=== PATIENT | male | born 1935 | race Caucasian/White ===

== ENCOUNTER 2016-07-19 20:07 | Observation (INO) | payer MEDICARE ==
[~2016-07-19] VITALS: Ht 172.7 cm; Wt 56.3 kg
[2016-07-19 20:14] VITALS: BP 118/60
[2016-07-19] MEDS ORDERED: LEVOTHYROXINE0.05 MG NG (20:24)
[2016-07-19] MEDS ORDERED: METOPROLOL25 MG PO (20:25)
[2016-07-19] MEDS ORDERED: OMEPRAZOLE20 MG PO (20:25)
[2016-07-19] MEDS ORDERED: DAPSONE100 M1 PO (20:25)
[2016-07-19 20:34] LABS: LYMPH # 1.4 K/mm3 (0.7-4.5); LYMPH % 21.7 % (10-50)
[2016-07-19 20:37] LABS: HEMOGLOBIN 8.1 g/dL (14.1-18.0)
[2016-07-19 21:01] LABS: BUN 11 mg/dL (7-18)
[2016-07-19 21:03] LABS: GFR (ESTIMATED) 65 ML/MIN (>60)
--- OUTSIDE RECORDS SUMMARY | 2016-07-19 21:22 | External Medical Summary Rpt ---
Demographics Home Phone Preferred Language Turkmen Marital Status Unknown Sikh Affiliation Unknown Race Unknown Ethnic Group Unknown Author Author , Organization [employer] Address Unknown Phone Unavailable Care Team Providers Care Outside Salesman Name Role Phone MURALI GRIJALVA, Unavailable Unavailable MURALI GRIJALVA, Unavailable Unavailable MARTHA VERNON, Unavailable Unavailable MARTHA SHOOK JOHN M, Unavailable Unavailable RAHEEM MITCHELL JEFFREY P, Unavailable Unavailable SPENCER MOORE MALLORY DECALVO Unavailable Unavailable MAR, MALLORY DECALVO MAR MALLORY DECALVO, Unavailable Unavailable CELY V, MALLORY DECALVO, CELY V CARMELITA CHAVEZ, CARMELITA CHAVEZ Unavailable Unavailable HAGCHNEIDER, Unavailable Unavailable MIKAYLA Farr, CHARITY, IGLESIA FUENTES, Unavailable Unavailable IGLESIA PRICE SHEYLA ABR, SHEYLA Unavailable Unavailable ABR SHEYLA ABR, SHEYLA Unavailable Unavailable [facility] Unavailable [facility], [facility] & Unavailable Unavailable [facility], [place] [facility] Unavailable Unavailable [facility], [facility], Unavailable Unavailable [facility] & Unavailable [facility] & Unavailable Unavailable [facility]available [facility]available [facility] Unavailable Unavailable [facility] JAYCE RIVERA Unavailable Unavailable [facility], Unavailable Unavailable [facility] EDUARDO, Unavailable Unavailable DANIELLE DÍAZ [facility] Unavailable Unavailable MEDICAL, [facility] Unavailable Unavailable MEDICAL CENTER, [facility], Unavailable Unavailable [facility] PATHOLOGY & CYTOLOGY Unavailable Unavailable LAB, PATHOLOGY & CYTOLOGY LAB [facility], Unavailable Unavailable [facility], Unavailable Unavailable [facility] TARASTYURIY KIM, Unavailable Unavailable TARASTAD, KIM RENEE RAG, Unavailable Unavailable RENEE RAG RENEE, Unavailable Unavailable RENEE MURILLO RAGHURAMAN WEAVER KEN, WEAVER Unavailable Unavailable [facility] Unavailable Unavailable GLORIA Purpose Continuity of Care Document - 02-21-2007 through 2016 Problems Code Diagnosis DOS Provider Status 2449 UNSPECIFIED 04-05-2014 [facility] ISM 4279 UNSPECIFIED 04-05-2014 [facility] CARDIAC [facility] DYSRHYTHMIA [facility] 70340 OTHER 04-05-2014 [facility] [place] MALA[facility] FATIGUE [facility] 3688 OTHER 02-23-2014 [facility]IED [facility] VISUAL DISTURBANCE S 23331 PAIN IN OR 02-23-2014 [facility] 49911 URINARY 02-23-2014 [facility]REQU[facility]Y [facility] 21655 NONSPECIFIC 02-23-2014 [facility]AL [facility] UNSPEC CV FUNCTION STUDY V7791 SCREENING 02-23-2014 [facility] LIPOID [facility] DISORDERS 11140 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 [facility] ENTROPION 23680 JL MUCOUS 02-22-2014 [facility] PEMPHIGOID [place] W/OCULAR INVLV 4149 UNSPECIFIED 10-15-2013 [facility] CHRONIC ISCHEMIC HEART DISEASE 38911 OTHER 10-15-2013 [facility] SPECIFIED CARDIAC DYSRHYTHMIA S 2859 UNSPECIFIED 10-07-2013 [facility] ANEMIA [facility]IONAL MEDICAL 4139 OTHER AND 10-07-2013 [facility] UNSPECIFIED HEART ANGINA PECTORIS 02170 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 [facility] ATHEROSCLER REGIONAL [facility] CORONARY ARTERY 4280 CONGESTIVE 10-07-2013 [facility] HEART HEART FAILURE UNSPECIFIED 72798 CHEST PAIN 10-07-2013 [facility] UNSPECIFIED REGIONAL MEDICAL 82710 OTH 10-07-2013 [facility] NONSPECIFIC HEART ABNORM CV SYSTEM FUNCTION STUDY 37701 SHORTNESS 09-17-2013 [place] [facility] HEART 66534 NONSPECIFIC 09-17-2013 [facility] ABNORMAL HEART ELECTROCARD IOGRAM 37538 ANEMIA OF 09-07-2013 [facility] CHRONIC DISEASE 7804 DIZZINESS 09-07-2013 [facility] [place] [facility]IDDINESS [facility] 7840 HEADACHE 09-07-2013 [facility] V5869 LONG-TERM 09-07-2013 [facility] (CURRENT) [facility] USE OF OTHER MEDICATIONS V431 LENS 04-24-2013 [place] [facility]ED BY E[facility] OTHER INSTITUTE MEANS 2469 UNSPECIFIED 03-05-2013 [facility] DISORDER [facility]AG[facility] OF THYROID 2689 UNSPECIFIED 03-05-2013 [facility] VIT[facility]IN D [facility]AGNO[facility] DEFICIENCY 87857 UNSPECIFIED 03-05-2013 [facility] OF EYE 3804 IMPACTED 03-05-2013 [facility] CERUMEN [facility] 57682 DISORDER OF 03-05-2013 [facility] BONE AND [facility]AGNO[facility]ICS CARTILAGE UNSPECIFIED V851 BODY MASS 03-05-2013 [facility] INDEX [facility] BETWEEN 19-24 ADULT 86904 NUCLEAR 09-18-2012 [facility] 3669 UNSPECIFIED 09-18-2012 [facility] 95065 UNSPECIFIED 09-10-2012 [facility] INTERSTITIA L KERATITIS 16517 SCARRING OF 09-10-2012 [facility] CONJUNCTIVA 02677 UNSPECIFIED 09-10-2012 [facility] ABNORMAL PUPILLARY FUNCTION 2662 OTHER 01-30-2012 [facility] B-COMPLEX PRIMARY DEFICIENCIE CARE CENTER S 2669 UNSPECIFIED 01-30-2012 [facility] B [facility] DEFICIENCY 5225 PERIAPICAL 06-18-2011 [facility] ABSCESS PRIMARY WITHOUT CARE CENTER SINUS 50482 UNSPECIFIED 06-18-2011 [facility] PRIMARY OSTEOPOROSI CARE CENTER S 7945 NONSPECIFIC 06-18-2011 LABORATORY ABNORM & RESULTS BIODIAGNOST THYROID ICS FUNCT STUDY V0382 NEED PROPH 06-18-2011 [facility] VACCINATION PRIMARY AGAINST CARE CENTER STREP PNEUMONE 7099 UNSPECIFIED 01-16-2011 [facility] DISORDER PRIMARY OF CARE CENTER SKIN&SUBCUT ANEOUS TISSUE 7821 RASH AND 12-04-2010 [facility] OTHER PRIMARY NONSPECIFIC CARE CENTER SKIN ERUPTION 6929 CONTACT 09-08-2010 [facility] DERMATITIS& PRIMARY OTHER CARE CENTER ECZEMA DUE UNSPEC CAUSE 2722 MIXED 05-02-2010 LABORATORY HYPERLIPIDE & LENIN BIODIAGNOST ICS V8281 SPECIAL 03-27-2010 [facility] FOR MEDICAL OSTEOPOROSI S 7851 PALPITATION 02-13-2010 [facility] S HEART 72101 BLEPHAROPHI 01-09-2010 [place] [facility] [place] [facility] & SURG P 2800 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 BIODIAGNOST SECONDARY ICS TO BLOOD LOSS 4011 ESSENTIAL 06-13-2009 [facility] HYPERTENSIO REGIONAL N, [facility] 2692 UNSPECIFIED 04-05-2009 [facility] VITAMIN PRIMARY DEFICIENCY CARE CENTERINC 45228 UNSPECIFIED 03-07-2009 [place] [facility] CORNEAL E[facility] & OPACITY SURG PSC V7644 SPECIAL 02-23-2009 [facility] SCREENING PRIMARY MALIGNANT CARE NEOPLASM OF CENTERINC PROSTATE V7651 SPECIAL 02-23-2009 [facility] SCREENING PRIMARY FOR CARE MALIGNANT CENTERINC NEOPLASMS COLON 4940 BRONCHIECTA 09-15-2009 [facility] SIS WITHOUT RADIOLOGY ACUTE ASSOCIATES EXACERBATIO PSC N 7862 COUGH 10-26-2008 [facility] 2324 CARCINOMA 10-01-2008 PATHOLOGY & IN SITU OF CYTOLOGY SCALP AND LAB SKIN OF NECK 1733 OTH MALIG 09-30-2008 SANDY, NEOPLASM KIM SKIN OTH & UNS PARTS FACE V1083 PERSONAL 09-30-2008 [facility], HISTORY KIM OTHER MALIGNANT NEOPLASM SKIN 1734 OTHER 09-02-2008 [facility] MALIGNANT ASSOC NEOPLASM OF DERMATOLOGY SCALP & SKIN OF NECK 6944 PEMPHIGUS 09-02-2008 [facility] 6948 OTHER 09-02-2008 [facility] SPECIFIED ASSOC BULLOUS DERMATOLOGY DERMATOSIS 4928 OTHER 07-09-2008 [facility] EMPHYSEMA RADIOLOGY ASSOCIATES PSC 13621 OTHER 07-09-2008 [facility] DISEASES OF RADIOLOGY LUNG NOT ASSOCIATES ELSEWHERE PSC CLASSIFIED 7856 ENLARGEMENT 07-09-2008 [facility] OF LYMPH RADIOLOGY NODES ASSOCIATES PSC 17716 ING VANITA 06-22-2008 [facility] W/O MENTION H ANESTHESIA OBST/GANGRE PSC N UNILAT/UNSP EC 496 CHRONIC 06-21-2008 [facility] AIRWAY RADIOLOGY OBSTRUCTION ASSOCIATES NEC PSC 84105 ING VANITA 06-21-2008 [facility] W/O REGIONAL OBST/GANGRE MEDICAL N RECUR CENTER UNILAT/UNS V1201 PERSONAL 06-21-2008 [facility] HISTORY OF REGIONAL TUBERCULOSI MEDICAL S CENTER V7284 UNSPECIFIED 06-21-2008 [facility] PRE-OPERATI MEDICAL VE CENTER EXAMINATION 5539 VANITA UNS 06-14-2008 [facility] SITE ABD PRIMARY CAV W/O CARE MENTION CENTERINC OBST/GANGRE N 44385 UNSPECIFIED 06-09-2007 RUDI, PTOSIS OF MURALI EYEL[facility] 34066 DERMATOCHAL 06-09-2007 RUDI, ASIS MURALI 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 Procedures Procedure DOS Code Location Performer Comment BLOOD 16551 [facility] COUNT 5 PRIMARY HEMOGLOBI CARE N CENTER ECG 52457 [facility] ROUTINE 5 PRIMARY ECG CARE W/LEAST CENTER 12 LDS TRCG ONLY W/O I&[place] [address] [facility] PROSTATE 5 DIAGNOSTI DIAGNOSTI [place] [address] [facility] THYROID 5 DIAGNOSTI DIAGNOSTI STIMULATI CS CS NG HORMONE TSH COLLECTIO 46979 [facility] N VENOUS 5 DIAGNOSTI DIAGNOSTI BLOOD CS CS VENIPUNCT URE COMPREHEN 16910 [facility] SIVE 5 DIAGNOSTI DIAGNOSTI METABOLIC CS CS PANEL BLOOD 17960 [facility] COUNT 5 DIAGNOSTI DIAGNOSTI COMPLETE CS CS AUTO&AUTO DIFRNTL WBC OPHTH 24859 [facility] 5 EYE HUONG XM&EVAL INSTITUTE INTERMEDI ATE ESTAB PT CORRECTIO 70291 [facility] 4 EYE HUONG TRICHIASI INSTITUTE S EPILATION FORCEPS ONLY OPHTH 70570 [facility] 4 EYE HUONG XM&EVAL INSTITUTE INTERMEDI ATE ESTAB PT GUIDE C1769 [facility] WIRE 4 W W [facility] MEDICAL MEDICAL CATHETER C1887 [facility] GUIDING 4 W W [facility] MEDICAL ARTERIAL 81120 [facility] PUNCTURE 4 W W [facility] L BLOOD MEDICAL MEDICAL DX INTRDUCR/ C1766 [facility] SHEATH 4 W W GUID [facility] INTRACARD MEDICAL MEDICAL EP NOT PEEL-AWAY R & L HRT 90632 [facility] CATH 4 [place] WINJX HRT HEART ART& [place]G [place] DOP 41072 [facility] PATRICIA&/OR 4 [place] PRESS HEART C/IRWIN RSRV TRANG 1ST VSL MYOCARDIA 21590 [facility] L SPECT 4 [facility] MULTIPLE HEART STUDIES CV STRS 40670 [facility] TST 4 W W XERS&/OR [facility] RX CONT [place]ICAL [place] [address] [facility] MAGNESIUM 4 W W [facility] [place] [address] [facility] THYROID 4 W W STIMULATI [facility] [place] [address] [facility] FREE 4 W W THYROXINE [facility] MEDICAL MEDICAL COMPREHEN 47625 [facility] SIVE 4 W W METABOLIC REGIONAL REGIONAL PANEL MEDICAL MEDICAL COLLECTIO 13101 [facility] N VENOUS 4 W W BLOOD REGIONAL REGIONAL VENIPUNCT MEDICAL MEDICAL URE ECHO 62241 [facility] TTHRC R-T 4 W W 2D REGIONAL REGIONAL W/WOM-MOD MEDICAL MEDICAL E COMPL SPEC&COLR D BLOOD 56691 [facility] COUNT 4 W W COMPLETE REGIONAL REGIONAL AUTO&AUTO MEDICAL MEDICAL DIFRNTL WBC TECHNETIU A9502 [facility] M TC-99M 4 W W TETROFOSM REGIONAL REGIONAL IN DX PER MEDICAL MEDICAL STUDY DOSE CV STRS 96261 [facility] TST 4 [place] XERS&/OR HEART RX CONT ECG I&[place] [address] [facility] PROSTATE 4 DIAGNOSTI DIAGNOSTI SPECIFIC CS CS ANTIGEN TOTAL ECG 63994 [facility] ROUTINE 4 PRIMARY Y BRE ECG CARE W/LEAST CENTER 12 LDS TRCG ONLY W/O I&R COMPREHEN 40497 [facility] SIVE 4 DIAGNOSTI DIAGNOSTI METABOLIC CS CS PANEL COLLECTIO 87106 [facility] N VENOUS 4 DIAGNOSTI DIAGNOSTI [place] [address] [facility] THYROID 4 DIAGNOSTI DIAGNOSTI STIMULATI CS CS NG HORMONE TSH BLOOD 26424 [facility] COUNT 4 DIAGNOSTI DIAGNOSTI COMPLETE CS CS AUTO&AUTO DIFRNTL WBC OPHTH 81694 [facility] 4 EYE HUONG XM&EVAL INSTITUTE INTERMEDI ATE ESTAB PT CORRECTIO 31627 [facility] N 4 EYE HUONG TRICHIASI INSTITUTE S EPILATION FORCEPS ONLY CORRECTIO 61148 [facility] N 4 EYE HUONG TRICHIASI INSTITUTE S EPILATION FORCEPS ONLY OPHTH 67752 [facility] 4 EYE HUONG XM&EVAL INSTITUTE INTERMEDI ATE ESTAB PT REMOVAL 41985 [facility] IMPACTED 4 PRIMARY PRIMARY CERUMEN CARE CARE INSTRUMEN CENTER [place] TATION UNILAT COMPREHEN 61546 [facility] SIVE 4 DIAGNOSTI DIAGNOSTI METABOLIC CS CS PANEL COLLECTIO 55036 [facility] N VENOUS 4 DIAGNOSTI DIAGNOSTI [place] [address] [facility] THYROID 4 DIAGNOSTI DIAGNOSTI ST[place]ULAT[place] [address] [facility] FREE 4 DIAGNOSTI DIAGNOSTI THYROXINE CS CS CORRECTIO 03745 [facility] N 3 EYE HUONG TRICHIASI INSTITUTE S EPILATION FORCEPS ONLY OPHTH 48761 [facility] 3 EYE HUONG &EVAL INSTITUTE INTERMEDI ATE ESTAB PT CORRECTIO 89485 [facility] N 3 EYE HUONG TRICHIASI INSTITUTE S EPILATION FORCEPS ONLY OPHTH 93271 [facility] 3 EYE HUONG &EVAL INSTITUTE INTERMEDI ATE ESTAB PT INJECTION J2001 [facility] 3 W W LIDOCAINE REGIONAL REGIONAL [facility] MEDICAL MEDICAL INTRAVENO US INFUS 10 MG CATARACT 82962 [facility] REMOVAL 3 EYE HUONG INSERTION INSTITUTE OF LENS OPH BMTRY 21479 [facility] US 3 EYE HUONG ECHOGRAPY INSTITUTE A-SCAN IO LENS PWR JEFF OPHTH 89735 [facility] 3 GLORIA GLORIA XM&EVAL INTERMEDI ATE NEW PT CORRECTIO 42614 [facility] N 3 EYE EYE TRICHIASI INSTITUTE INSTITUTE S EPILATION FORCEPS ONLY CORRECTIO 76961 [facility] N 3 EYE HUONG TRICHIASI INSTITUTE S EPILATION FORCEPS ONLY OPHTH 84451 [facility] 3 EYE HUONG &EVAL INSTITUTE INTERMEDI ATE ESTAB PT 25 84734 [facility] HYDROXY 2 DIAGNOSTI DIAGNOSTI INCLUDES CS CS FRACTIONS IF PERFORMED CYANOCOBA 78963 [facility] EDD 2 DIAGNOSTI DIAGNOSTI VITAMIN CS CS B-12 BLOOD 06366 [facility] COUNT 2 DIAGNOSTI DIAGNOSTI [place] [address] [facility] FERRITIN 2 DIAGNOSTI DIAGNOSTI CS CS IRON 31965 [facility] BINDING 2 DIAGNOSTI DIAGNOSTI CAPACITY CS CS BLOOD 24100 [facility] COUNT 2 DIAGNOSTI DIAGNOSTI COMPLETE CS CS AUTO&AUTO DIFRNTL WBC COMPREHEN 87875 [facility] SIVE 2 DIAGNOSTI DIAGNOST[place] [address] [facility] IRON 2 DIAGNOSTI DIAGNOSTI CS CS COLLECTIO 83249 [facility] N VENOUS 2 DIAGNOSTI DIAGNOSTI [place] [address] [facility] FOLIC 2 DIAGNOSTI DIAGNOSTI ACID CS CS SERUM OPHTH 19174 [facility] 2 FOR HUONG XM&EVAL EYEHLTH & INTERMEDI SURG P ATE ESTAB PT CORRECTIO 93426 [place] [facility] N 2 FOR HUONG TRICHIASI EYEHLTH & S SURG P EPILATION FORCEPS ONLY CORRECTIO 59782 [facility] N 2 FOR HUONG TRICHIASI EYEHLTH & S SURG P EPILATION FORCEPS ONLY OPHTH 97472 [facility] 2 FOR HUONG XM&EVAL EYEHLTH & [place] [address] [facility] THYROID 2 [facility] [place] [address] LABORATOR LABORATOR FREE 2 Y & Y & THYROXINE BIODIAGNO BIODIAGNO STICS STICS COMPREHEN 47373 LABORATOR LABORATOR SIVE 2 Y & Y & METABOLIC BIODIAGNO BIODIAGNO PANEL STICS STICS COLLECTIO 62410 LABORATOR LABORATOR N VENOUS 2 Y & Y & BLOOD BIODIAGNO BIODIAGNO [place] [address] LABORATOR LABORATOR THYROID 2 Y & Y & STIMULATI BIODIAGNO BIODIAGNO [place] [address] LABORATOR LABORATOR TRIIODOTH 2 Y & Y & YRONINE BIODIAGNO BIODIAGNO T3 FREE STICS STICS BLOOD 49973 LABORATOR LABORATOR COUNT 2 Y & Y & COMPLETE BIODIAGNO BIODIAGNO AUTO&AUTO STICS STICS DIFRNTL WBC LIPID 19241 LABORATOR LABORATOR PANEL 2 Y & Y & BIODIAGNO BIODIAGNO STICS STICS 25 05-07-201 86219 LABORATOR LABORATOR HYDROXY 2 Y & Y & INCLUDES BIODIAGNO BIODIAGNO FRACTIONS STICS STICS IF PERFORMED CYANOCOBA 18089 LABORATOR LABORATOR EDD 2 Y & Y & VITAMIN BIODIAGNO BIODIAGNO B-12 STICS STICS CORRECTIO [address] [facility] 2 FOR HUONG TRICHIASI EYEHLTH & S SURG P EPILATION FORCEPS ONLY OPHTH 05970 [facility] 2 FOR HUONG XM&EVAL EYEHLTH & INTERMEDI SURG P ATE ESTAB PT OPHTH 27521 [facility] 2 FOR HUONG XM&EVAL EYEHLTH & INTERMEDI SURG P ATE ESTAB PT CORRECTIO [address] [facility] 2 FOR HUONG TRICHIASI EYEHLTH & S SUR[place] [address] LABORATOR LABORATOR SURG 1 Y & Y & PATHOLOGY BIODIAGNO BIODIAGNO STICS STICS GROSS&HERB ROSCOPIC EXAM OPHTH 73106 [facility] 1 FOR HUONG XM&EVAL EYEHLTH & INTERMEDI SURG P ATE ESTAB PT COLLECTIO 06719 [facility] N VENOUS 1 PRIMARY ALVAREZ BLOOD CARE DECAL VENIPUNCT CENTER MAR URE CORRECTIO 44942 [facility] N 1 FOR HUONG TRICHIASI EYEHLTH & S SURG P EPILATION FORCEPS ONLY OPHTH 83994 [facility] 1 FOR HUONG XM&EVAL EYEHLTH & INTERMEDI SURG P ATE ESTAB PT OPHTH 53190 [facility] 1 FOR HUONG XM&EVAL EYEHLTH & INTERMEDI SURG P ATE ESTAB PT CORRECTIO 44285 [facility] N 1 FOR HUONG TRICHIASI EYEHLTH & [place] [address] LABORATOR LABORATOR PROSTATE 1 Y & Y & SPECIFIC BIODIAGNO BIODIAGNO ANTIGEN STICS STICS TOTAL 25 86671 LABORATOR LABORATOR HYDROXY 1 Y & Y & INCLUDES BIODIAGNO BIODIAGNO FRACTIONS STICS STICS IF PERFORMED CYANOCOBA 62587 LABORATOR LABORATOR EDD 1 Y & Y & VITAMIN BIODIAGNO BIODIAGNO B-12 STICS STICS ORGANIC 08701 LABORATOR LABORATOR ACID 1 1 Y & Y & QUANTITAT BIODIAGNO [place]ODI[place] [address] LABORATOR LABORATOR IRON 1 Y & Y & BIODIAG[place] [address] LABORATOR LABORATOR FOLIC 1 Y & Y & ACID BIODIAGNO BIODIAGNO SERUM STICS STICS COMPREHEN 05865 LABORATOR LABORATOR SIVE 1 Y & Y & METABOLIC BIODIAGNO BIODIAGNO PANEL STICS STICS COLLECTIO 42843 [facility] N VENOUS 1 PRIMARY ALVAREZ BLOOD CARE DECALVO VENIPUNCT CENTER MAR URE IRON 64678 LABORATOR LABORATOR BINDING 1 Y & Y & CAPACITY BIODIAGNO BIODIAGNO STICS STICS LIPOPROTE 88018 LABORATOR LABORATOR IN DIRECT 1 Y & Y & BIODIAGNO BIODIAGNO MEASUREME STICS STICS NT LDL CHOLESTER OL LIPID 50982 LABORATOR LABORATOR PANEL 1 Y & Y & BIODIAGNO BIODIAGNO STICS STICS BLOOD 00672 LABORATOR LABORATOR COUNT 1 Y & Y & COMPLETE BIODIAGNO BIODIAGNO AUTO&AUTO STICS STICS DIFRNTL WBC DXA BONE 82478 [facility] DENSITY 1 W W STUDY 1/> REGIONAL REGIONAL SITES MEDICAL MEDICAL AXIAL SKEL CORRECTIO 84576 [facility] N 1 FOR HUONG TRICHIASI EYEHLTH & S SURG P EPILATION FORCEPS ONLY OPHTH 68401 [facility] 1 FOR HUONG XM&EVAL EYEHLTH & INTERMEDI SURG [place] ECG 01656 [facility] ROUTINE 1 PRIMARY ALVAREZ ECG CARE DECALVO W/LEAST CENTER MAR 12 LDS TRCG ONLY W/O I&R CORRECTIO 36681 [facility] N 0 FOR HUONG TRICHIASI EYEHLTH & S SURG P EPILATION FORCEPS ONLY OPHTH 25617 [facility] 0 FOR HUONG XM&EVAL EYEHLTH & [place]MED[place] [address] LABORATOR LABORATOR FOLIC 0 Y & Y & ACID BIODIAGNO BI[place] [address] LABORATOR LABORATOR [id number] 0 Y & Y & SFERRIN BIODIAGNO BIODIAGNO STICS STICS COMPREHEN 50507 LABORATOR LABORATOR SIVE 0 Y & Y & METABOLIC BIODIAGNO BIODIAGNO PANEL STICS STICS CYANOCOBA 90584 LABORATOR LABORATOR EDD 0 Y & Y & VITAMIN BIODIAGNO BIODIAGNO B-12 STICS STICS BLOOD 91723 LABORATOR LABORATOR COUNT 0 Y & Y & COMPLETE BIODIAGNO BIODIAGNO AUTOMATED STICS STICS ORGANIC 96989 LABORATOR LABORATOR ACID 1 0 Y & Y & QUANTITAT BIODIAGNO BIODIAGNO BALAJI STICS STICS CORRECTIO 29844 [place] [facility] N 0 FOR HUONG TRICHIASI EYEHLTH & S SURG P EPILATION FORCEPS ONLY OPHTH 71701 [place] [facility] BOONE MEDICAL 0 FOR HUONG XM&EVAL EYEHLTH & INTERMEDI SURG P ATE ESTAB PT OPHTH 42677 [place] [facility] BOONE MEDICAL 0 FOR HUONG XM&EVAL EYEHLTH & INTERMEDI SURG P ATE ESTAB PT BILIRUBIN 51333 [facility] DIRECT 0 W [facility] CENTER BLOOD 98931 [facility]OW[facility] COUNT 0 W W COMPLETE [facility] AUTO&AUTO MEDICAL MEDICAL DIFRNTL CENTER CENTER WBC COMPREHEN 42356 [facility]OW[facility] SIVE 0 W W METABOLIC [facility] CENTER COLLECTIO 40129 [facility] N VENOUS 0 W W BLOOD [facility] VENIPUNCT [facility] CENTER CORRECTIO 19806 [place] [facility] N 0 FOR , MARTHA Emmanuel TRICHIASI EYEHLTH & S SURG PSC EPILATION FORCEPS ONLY OPHTH 58998 [place] [facility] [facility] MEDICAL 0 FOR MARTHA Emmanuel XM&EVAL EYEHLTH & INTERMEDI SURG PSC ATE ESTAB PT OPHTH 76539 [place] [facility] [facility] [facility]ICAL 0 FOR , MARTHA Emmanuel XM&EVAL EYEHLTH & INTERMEDI SURG PSC ATE ESTAB PT UNCLASSIF J3490 [facility] IED DRUGS 0 W W [facility] CENTER INJECTION J3010 [facility] FENTANYL 0 W W CITRATE REGIONAL REGIONAL 0.1 MG MEDICAL MEDICAL CENTER CENTER ECG 69986 [facility] ROUTINE 0 W W ECG REGIONAL REGIONAL W/LEAST MEDICAL MEDICAL 12 LDS CENTER CENTER TRCG ONLY W/O I&R INJECTION J2001 [facility] 0 W W LIDOCAINE REGIONAL REGIONAL HCL MEDICAL MEDICAL INTRAVENO CENTER CENTER US INFUS 10 MG INJECTION J2250 [facility] 0 W W MIDAZOLAM REGIONAL REGIONAL HCL PER MEDICAL MEDICAL 1 MG CENTER CENTER LOCM Q9967 MEADOWVIE MEADOWVIE [phone] W W MG/ML REGIONAL REGIONAL IODINE MEDICAL MEDICAL CONCENTRA CENTER CENTER TION PER ML I SI&R 02521 MEADOWVIE MEADOWVIE F/NJX PX 0 W W DURING REGIONAL REGIONAL C-CATHJ MEDICAL MEDICAL PULM&/OR CENTER CENTER SELECT I SI&R 49929 MEADOWVIE MEADOWVIE F/NJX PX 0 W W DURING REGIONAL REGIONAL C-CATHJ MEDICAL MEDICAL VENTR&/AT CENTER CENTER R [facility] [place] [address] MEADOW[place]IE MEADOWVIE C-CATHJ 0 W W F/SLCTV C [facility]IONAL [facility] CENTER L HRT 97603 MEADOWVIE MEADOWVIE CATHETERI 0 W W ZATION REGIONAL REGIONAL RETROGRAD MEDICAL MEDICAL E CENTER CENTER BRACHIAL PERQ INJECTION 60790 MEADOWVIE MEADOWVIE CARDIAC 0 W W CATHJ L REGIONAL REGIONAL VENTR/L MEDICAL MEDICAL ATR CENTER CENTER ANGIOGRAP H PLCMT [id number] MEADOWVIE MEADOWVIE OCCL DEVC 0 W W REGIONAL REGIONAL SAMUEL/[facility] C[facility] CENTER SURG/INTR VNL PROC BASIC 02286 MEADOWVIE MEADOWVIE METABOLIC 0 W W PANEL REGIONAL REGIONAL CALCIUM MEDICAL MEDICAL TOTAL CENTER CENTER COLLECTIO 00305 MEADOWVIE MEADOWVIE N VENOUS 0 W W BLOOD REGIONAL REGIONAL VENIPUNCT MEDICAL MEDICAL URE CENTER CENTER BLOOD 73109 JAY THOMPSON COUNT 0 W W COMPLETE REGIONAL REGIONAL AUTO&AUTO MEDICAL MEDICAL DIFRNTL CENTER CENTER WBC MYOCARDIA 90740 JAY THOMPSON L SPECT 0 W W MULTIPLE REGIONAL [facility] STUDIES [facility] CENTER CENTER CV STRS 76649 JAY THOMPSON TST 0 W W XERS&/OR REGIONAL REGIONAL RX CONT MEDICAL MEDICAL ECG TRCG CENTER CENTER ONLY CV STRS 79878 [facility], TST 0 VALLEY HIWOT R XERS&/OR HEART RX CONT ECG W/O I&R CV STRS 02070 [facility], TST 0 VALLEY HIWOT R XERS&/OR HEART RX CONT ECG I&R ONLY TECHNETIU A9502 JAY Kasper TC-99M 0 W W TETROFOSM REGIONAL REGIONAL IN DX PER [facility] STUDY [place] [facility] DOSE OPHTH 79707 [facility] 0 FOR , MARTHA L XM&EVAL EYEHLTH & INTERMEDI SURG PSC ATE ESTAB PT CV STRS 36751 [facility] TST 0 VALLEY YOLIS XERS&/OR HEART RX CONT ECG I&R ONLY CV STRS 04207 JAY THOMPSON TST 0 W W XERS&/OR REGIONAL REGIONAL RX CONT MEDICAL MEDICAL ECG [facility] ONLY ECHO 56433 [place] [facility] TTHRC R-T 0 VALLEY N, 2D HEART RAGHURAMA W/WOM-MOD N E COMPL SPEC&COLR D CV STRS 37498 [facility] TST 0 VALLEY Y[place] XERS&/OR HEART RX CONT ECG W/O I&R 25 [id number] LABORATOR LABORATOR HYDROXY 0 Y & Y & INCLUDES BIODIAGNO BIODIAGNO FRACTIONS STICS STICS IF PERFORMED IRON 71551 LABORATOR LABORATOR BINDING 0 Y & Y & CAPACITY BIODIAGNO BIODIAGNO STICS STICS BLOOD 33108 LABORATOR LABORATOR COUNT 0 Y & Y & COMPLETE BIODIAGNO BIODIAGNO AUTO&AUT[place] [address] LABORATOR LABORATOR IRON 0 Y & Y & BIODI[place] [address] LABORATOR LABORATOR FOLIC 0 Y & Y & ACID BIODIAGNO BIODIAGNO SERUM STICS STICS COMPREHEN 85591 LABORATOR LABORATOR SIVE 0 Y & Y & METABOLIC BIODIAGNO BIODIAGNO PANEL STICS STICS COLLECTIO 74662 [facility] N VENOUS 0 PRIMARY ALVAREZ BLOOD CARE DECALVO, VENIPUNCT [place] [address] LABORATOR LABORATOR FERRITIN 0 Y & Y & BIODIAGNO BIODIAGNO STICS STICS CYANOCOBA 65145 LABORATOR LABORATOR EDD 0 Y & Y & VITAMIN BIODIAGNO BIODIAGNO B-12 STICS STICS CORRECTIO 35608 [facility] N 0 FOR , MARTHA Benitez TRICHIASI EYEHLTH & S SURG PSC EPILATION FORCEPS ONLY OPHTH 54110 [facility] 0 FOR , MARTHA Benitez XM&EVAL EYEHLTH & INTERMEDI SURG PSC ATE ESTAB PT ECG 68009 [facility] ROUTINE 0 PRIMARY ALVAREZ ECG CARE DECALVO, W/LEAST CENTERINC [facility] 12 LDS OPAL V TRCG ONLY W/O I&R OPHTH 58096 [facility] 0 FOR , MARTHA Benitez XM&EVAL EYEHLTH & INTERMEDI SURG PSC ATE ESTAB PT CORRECTIO 20881 [facility] N 0 FOR , MARTHA Benitez TRICHIASI EYEHLTH & S SURG PSC EPILATION FORCEPS ONLY CORRECTIO 76574 [facility] N 9 FOR , MARTHA Benitez TRICHIASI EYEHLTH & S SURG PSC EPILATION FORCEPS ONLY OPHTH 41547 [facility] 9 FOR , MARTHA Benitez XM&EVAL EYEHLTH & INTERMEDI SURG PSC ATE ESTAB PT BLOOD 45192 [facility] COUNT 9 [facility] INC COMPLETE AUTO&AUTO DIFRNTL WBC COLLECTIO 39309 [facility] N VENOUS 9 PRIMARY ALVAREZ BLOOD CARE DECALVO, VENIPUNCT CENTERINC KYA URE OPAL V COMPREHEN 80908 [facility] SIVE 9 [facility] METABOLIC PANEL CORRECTIO [address] [facility] 9 MARTHA TELLES TRICHIASI EYEHLTH & S SURG PSC EPILATION FORCEPS ONLY OPHTH 92546 [facility] 9 MARTHA TELLES XM&EVAL EYEHLTH & INTERMEDI SURG PSC ATE ESTAB PT OPHTH 55815 [facility] 9 FOR , MARTHA Benitez XM&EVAL EYEHLTH & INTERMEDI SURG PSC ATE ESTAB PT RADIOLOGI 06083 [facility] C EXAM 9 W W CHEST 2 [facility] FRONTAL&L CENTER CENTER ATERAL BLOOD 51857 [facility] COUNT 9 [facility] COMPLETE AUTO&AUTO DIFRNTL WBC URNLS DIP 39716 [facility] OF 9 [facility] STICK/TAB [place] [address] [facility] HAPTOGLOB 9 [facility] IN QUANTITAT BALAJI PROSTATE [id number] [facility] CANCER 9 [facility] SCREENING ; PSA TEST COMPREHEN 39498 [facility] SIVE 9 [facility] [place] [address] [facility] THYROID 9 [facility] [place] [address] [facility] FOLIC 9 [facility] ACID RBC CYANOCOBA 25444 [facility] EDD 9 [facility] VITAMIN B-12 25 56011 [facility] HYDROXY 9 [facility] INCLUDES FRACTIONS IF PERFORMED CORRECTIO [address] [facility] 9 FOR , MARTHA Benitez TRICHIASI EYEHLTH & S SURG PSC EPILATION FORCEPS ONLY BLOOD 39352 [facility] COUNT 9 W W [facility] AUTO&AUTO [facility] MEDICAL DIFRNTL CENTER CENTER WBC HEPATIC 27869 [facility] FUNCTION 9 W W [facility] CENTER COLLECTIO 20362 JAY THOMPSON N VENOUS 9 W W BLOOD [facility] V[facility]IP[facility]CT [facility] URE CENTER CENTER OPHTH 46099 [facility] 9 MARTHA TELLES XM&EVAL EYEHLTH & INTER[place] [address] PATHOLOGY PATHOLOGY SURG 9 & & PATHOLOGY CYTOLOGY CYTOLOGY LAB LAB GROSS&HERB ROSCOPIC EXAM EXCISION 46456 SANDY DELGADO MALIGNANT 9 , KIM , KIM LESION S/N/H/F/G 0.6-1.0 CM OPHTH 18813 [facility] 9 MARTHA TELLES XM&EVAL EYEHLTH & INTERMEDI SURG PSC ATE ESTAB PT HEPATIC 03202 [facility] FUNCTION 9 [facility] PANEL COLLECTIO 62259 [facility] N VENOUS 9 [facility] BLOOD VENIPUNCT URE BLOOD 67726 [facility] COUNT 9 [facility] COMPLETE AUTO&AUTO DIFRNTL WBC COLLECTIO 23768 [facility] N VENOUS 9 [facility]IC [facility] BLOOD HOLDING HOLDING VENIPUNCT URE GLUC-6-PH 14539 [facility] OSPHATE 9 AMERIC AMERIC DEHYDROGE HOLDING HOLDING NASE QUANTITAT BALAJI BILIRUBIN 00260 [facility] TOTAL 9 [facility] HOLDING PROTEIN 55709 [facility] XCPT 9 AMERIC AMERIC REFRACTOM HOLDING HOLDING ETRY SERUM PLASMA/WH L BLD BLOOD 56095 [facility] COUNT 9 AMERIC AMERIC COMPLETE HOLDING HOLDING AUTO&[place] [address] UNIVERSIT TERESA, LIP 9 Y [place] [address] [facility] PHOSPHATA 9 AMERIC AMERIC SE HOLDING HOLDING ALKALINE COL-CHR/M 25558 [facility] S NONDRUG 9 AMERIC AMERIC ANALYTE HOLDING HOLDING LEV [place] [address] [facility] UREA 9 AMERIC AMERIC NITROGEN HOLDING HOLDING QUANTITAT BALAJI CALCIUM 25603 [facility] TOTAL 9 AMERIC AMERIC HOLDING HOLDING TRANSFERA 72532 [facility] SE 9 AMERIC AMERIC ASPARTATE HOLDING HOLDING AMINO AST SGOT SODIUM 35688 [facility] SERUM 9 AMERIC AMERIC PLASMA OR HOLDING HOLDING WHOLE BLOOD ALBUMIN 66961 [facility] SERUM 9 AMERIC AMERIC PLASMA/WH HOLDING HOLDING OLE BLOOD BX SKIN 70147 UNIVERSIT TERESA, SUBCUTANE 9 Y ASSOC SPENCER P OUS&/MUCO DERMATOLO US GY MEMBRANE 1 LESION GLUCOSE 18505 [facility] QUANTITAT 9 AMERIC AMERIC BALAJI BLOOD HOLDING HOLDING XCPT REAGENT STRIP CREATININ 79924 [facility] E BLOOD 9 AMERIC AMERIC HOLDING HOLDING POTASSIUM 61687 [facility] SERUM 9 AMERIC AMERIC PLASMA/WH HOLDING HOLDING OLE BLOOD CHLORIDE 55279 [facility] BLD 9 AMERIC AMERIC HOLDING HOLDING OPHTH 11272 [facility] 9 FOR , MARTHA Benitez XM&EVAL EYEHLTH & INTERMEDI SURG PSC ATE ESTAB PT 3D 29051 MICHAELA PRICE, RENDERING 9 IGLESIA Hastings W/VLADP RADIOLOGY & POSTPROCE ASSOCIATE SS S PSC SUPERVISI ON CT THORAX 14709 MICHAELA PRICE, Vahe Zabala/CONTRAS RADIOLOGY T MATERIAL ASSOCIATE S PSC INJECTION J3010 [facility] ME[facility] FENTANYL 9 W W CITRATE REGIONAL REGIONAL 0.1 MG [facility] ANESTHESI 76411 [facility] BRAUGHTON A HERNIA 9 LTH , CELESTE REPAIR ANESTHESI LOWER A [facility] ABDOMEN NOS RINGERS J7120 [facility] LACTATE 9 W W INFUSION REGIONAL REGIONAL UP TO MEDICAL MEDICAL 1000 CC CENTER CENTER LAPAROSCO 80155 [facility]OWV[facility] PY SURG 9 W W RPR REGIONAL REGIONAL INITIAL [facility] INGUINAL CENTER CENTER HERNIA MESH C1781 [facility] ME[facility]OW[facility]IE 9 W W [facility] CENTER INJECTION J2250 [facility] ME[facility]OW[facility] 9 W W MIDAZOLAM REGIONAL REGIONAL HCL PER MEDICAL MEDICAL 1 MG [facility] INJECTION J0690 [facility] ME[facility] 9 W W CEFAZOLIN REGIONAL REGIONAL SODIUM [facility] 500 MG CENTER [place] URNLS DIP 87645 [facility] 9 W W STICK/TAB REGIONAL REGIONAL LET MEDICAL MEDICAL REAGENT CENTER CENTER AUTO MICROSCOP Y BLOOD 37948 [facility] COUNT 9 W W COMPLETE REGIONAL REGIONAL AUTO&AUTO MEDICAL MEDICAL DIFRNTL [facility] WBC RADIOLOGI 57788 IVANCassie SANTILLAN EXAM 9 IGLESIA S CHEST 2 RADIOLOGY VIEWS FRONTAL&L ASSOCIATE ATERAL S PSC COMPREHEN 19261 [facility] SIVE 9 W W METABOLIC REGIONAL REGIONAL PANEL [facility] MEDICAL [place] [place] COLLECTIO 13475 [facility] ME[facility] N VENOUS 9 W W BLOOD REGIONAL [facility] VENIPUNCT MEDICAL MEDICAL URE [facility] ECG 84240 [facility] ROUTINE 9 W W ECG REGIONAL REGIONAL W/LEAST MEDICAL MEDICAL 12 LDS [facility] TRCG ONLY W/O I&R OPH BMTRY 81261 [facility] 9 FOR , MARTHA Benitez ECHOGRAPY EYEHLTH & A-SCAN SURG PSC IO LENS PWR JEFF OPHTH 55431 [facility] 9 FOR , MARTHA Benitez XM&EVAL EYEHLTH & COMPRHNSV SURG PSC ESTAB PT 1/> OPHTH 60888 [facility] 8 FOR MARTHA XM&EVAL EYEHLTH & INTERMEDI SURG PSC ATE ESTAB PT OPHTH 73133 [facility] 8 FOR MARTHA XM&EVAL EYEHLTH & COMPRE SURG PSC NEW PT 1/> VST OPHTH 13664 RUDI GRIJALVA, MEDICAL 8 MURALI CARRION XM&EVAL COMPRHNSV ESTAB PT 1/> FUNDUS 94080 RUDI GRIJALVA PHOTOGRAP 8 MURALI CARRION HY W/INTERPR ETATION & REPORT Encounters Encounter Start End Date Code Location Performer Type Date OFFICE 07949 [facility] 5 [facility] T [facility] 15 CENTER MINUTES OFFICE 90038 [facility] 5 5 PRIMARY T VISIT CARE 15 CENTER MINUTES OFFICE 48625 SHEYLA CARRION OUTPATIEN 4 4 ABR ABR T VISIT 15 MINUTES [facility] 57489 [facility] 4 4 PRIMARY T VISIT CARE 25 CENTER MINUTES OFFICE 52842 [facility] 4 4 [facility]IMARY T VISIT CARE 25 CENTER MINUTES [facility] 44779 [facility] 3 3 PRIMARY T VISIT CARE 15 CENTER MINUTES OFFICE 80202 [facility] 2 2 PRIMARY T VISIT CARE 25 CENTER MINUTES OFFICE 20119 [facility] 2 2 PRIMARY T VISIT CARE 25 CENTER MINUTES OFFICE 24044 [facility] 1 1 PRIMARY T VISIT CARE 10 CENTER MINUTES OFFICE 16157 [facility] OUTPATIEN 1 1 PRIMARY AVLAREZ T VISIT CARE DECALVO 15 CENTER MAR MINUTES OFFICE 84130 [facility] 1 1 PRIMARY T VISIT CARE 15 CENTER MINUTES OFFICE 72321 [facility] 1 1 PRIMARY T VISIT CARE 15 CENTER MINUTES OFFICE 07905 [facility] 1 1 PRIMARY T VISIT CARE 15 CENTER MINUTES [facility] 64469 [facility] 1 1 PRIMARY T VISIT CARE 15 CENTER MINUTES OFFICE 10317 [facility] 1 1 [facility] N RAG T NEW 45 HEART MINUTES OFFICE 12166 [facility] OUT[facility]EN 0 0 PRIMARY T VISIT CARE 15 CENTER MINUTES [facility] - 0 0 [facility] 0 0 [facility] OFFICE 52919 [facility] OUTPATIEN 0 0 [facility] YOLIS T VISIT HEART 25 MINUTES [facility] ME[facility]IE - 0 0 W [facility] - 0 0 W [facility] - 0 0 [facility] FREE 0 0 [facility] [place] [place] [facility] 86742 [facility] 0 0 PRIMARY T VISIT CARE 15 [facility] MINUT[facility] OFFICE 11368 [facility] 0 0 PRIMARY T VISIT CARE 15 [facility] CL[facility] FREE 0 0 PRIMARY STANDING CARE [facility] FREE 0 0 [facility] OFFICE 26760 [facility]PATIEN 0 0 PRIMARY T VISIT CARE 15 [facility] MINUTES [facility], [facility] FREE 9 9 PRIMARY [facility] OFFICE 90171 [facility] OUTPATIEN 9 9 PRIMARY T VISIT CARE 15 [facility] MINUT[facility], [facility] FREE 9 9 [facility] OFFICE 67869 [facility]PATIEN 9 9 PRIMARY T VISIT CARE 10 [facility] MINUTES CL[facility], [facility] FREE 9 9 PRIMARY STAND[facility]ARE [facility] OFFICE 53406 [facility]IEN 9 9 PRIMARY T VISIT 5 CARE MINUTES [facility] MEADOWVIE - 9 9 W [facility] FREE 9 9 PRIMARY STANDING CARE [facility] OFFICE 50747 [facility] OUTPATI[facility] 9 9 PRIMARY T VISIT CARE 25 [facility] MEAW - 9 9 W [facility] OFFICE 55623 [facility] CONSULTAT 9 9 , KIM KIM ION NEW/ESTAB PATIENT 40 MIN OFFICE 24636 UNIVERSMONSE TERESA, CONSULTAT 9 9 Y ASSOC SPENCER Miller ION DERMATOLO NEW/ESTAB GY PATIENT 40 MIN [facility] - 9 9 [facility] 28134 [facility] 9 9 PRIMARY T NEW 20 CARE MINUTES [facility] FREE 9 9 PRIMARY STANDING CARE [facility] OFFICE 86896 [facility] OUTPATIEN 9 9 MARTHA TELLES T VISIT EYEHLTH & 15 SURG PSC MINUTES OFFICE 71517 RUDI GRIJALVA OUTPATIEN 8 8 MURALI CARRION T VISIT 10 MINUTES
--- OUTSIDE RECORDS SUMMARY | 2016-07-19 21:22 | External Medical Summary Rpt ---
Demographics Home Phone Preferred Language Estonian Marital Status Unknown Latter-Day Affiliation Unknown Race Unknown Ethnic Group Unknown Author Author , Organization [employer] Address Unknown Phone Unavailable Care Team Providers Care [employer] Name Role Phone MURALI GRIJALVA, Unavailable Unavailable [...] ABR SHEYLA ABR, SHEYLA Unavailable Unavailable [facility] Un[facility] Un[facility], [place] [facility] Unavailable Unavailable [facility], [facility], Unavailable [facility]available [facility] & Unavailable [facility]available [facility] & Unavailable Unavailable [facility]available Unavailable [facility]available Unavailable [facility] JAYCE RIVERA Unavailable Unavailable [facility], Unavailable Unavailable [facility], Unavailable Unavailable DANIELLE DÍAZ [facility] Unavailable Unavailable MEDICAL, [facility] Unavailable Unavailable [facility], [facility], Unavailable Unavailable [facility] HEART PATHOLOGY & CYTOLOGY Unavailable Unavailable LAB, [...] [facility] DYSRHYTHMIA CARE C[facility] 02562 OTHER 04-05-2014 [facility] MALAISE AND PRIMARY FATIGUE CARE CENTER 3688 OTHER 02-23-2014 [facility] SPECIFIED DIAGNOSTICS VISUAL DISTURBANCE S 53668 PAIN IN OR 02-23-2014 [facility] AROUND EYE DIAGNOSTICS 70624 URINARY 02-23-2014 [facility] FREQUENCY DIAGNOSTICS 12693 NONSPECIFIC 02-23-2014 [facility] ABNORMAL [facility]AGNOSTICS UNSPEC CV FUNCTION STUDY V7791 SCREENING 02-23-2014 [facility] FOR LIPOID DIAGNOSTICS DISORDERS 67952 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 [place] [facility] ENTROPION 58922 JL MUCOUS 02-22-2014 [facility] PEMPHIGOID RAMSAY W/OCULAR INVLV 4149 UNSPECIFIED 10-15-2013 [facility]YLA A[facility] CHRONIC ISCHEMIC HEART DISEASE 84276 OTHER 10-15-2013 [facility] SPECIFIED CARDIAC DYSRHYTHMIA S 2859 UNSPECIFIED 10-07-2013 [facility] ANEMIA REGIONAL MEDICAL 4139 OTHER AND 10-07-2013 [facility] UNSPECIFIED HEART ANGINA [place]ECT[place] 59985 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 [facility] ATHEROSCLER REGIONAL [place] [facility] CORONARY ARTERY 4280 CONGESTIVE 10-07-2013 [facility] HEART HEART FAILURE UNSPECIFIED 04590 CHEST PAIN 10-07-2013 [facility] UNSPECIFIED REGIONAL MEDICAL 61930 OTH 10-07-2013 [facility] NONSPECIFIC HEART ABNORM CV SYSTEM FUNCTION STUDY 88030 SHORTNESS 09-17-2013 [place] [facility] 87347 NONSPECIFIC 09-17-2013 [facility] ABNORMAL HEART ELECTROCARD IOGRAM 79964 ANEMIA OF 09-07-2013 [facility] OTHER [facility]AG[facility]STICS CHRONIC DISEASE 7804 DIZZINESS 09-07-2013 [facility] AND PRIMARY GIDDINESS CARE CENTER 7840 HEADACHE 09-07-2013 [facility] DIAGNOSTICS V5869 LONG-TERM 09-07-2013 [facility] (CURRENT) DIAGNOSTICS USE OF OTHER MEDICATIONS V431 LENS 04-24-2013 [place] [facility] BY [facility] OTHER INSTITUTE MEANS 2469 UNSPECIFIED 03-05-2013 [facility] DISORDER DIAGNOSTICS OF THYROID 2689 UNSPECIFIED 03-05-2013 [facility] VITAMIN D DIAGNOSTICS DEFICIENCY 26414 UNSPECIFIED 03-05-2013 [facility] DISORDER DIAGNOSTICS OF EYE 3804 IMPACTED 03-05-2013 [facility] CERUMEN DIAGNOSTICS 55027 DISORDER OF 03-05-2013 [facility] BONE AND DIAGNOSTICS CARTILAGE UNSPECIFIED V851 BODY MASS 03-05-2013 [facility] INDEX DIAGNOSTICS BETWEEN 19-24 ADULT 81643 NUCLEAR 09-18-2012 [facility] 3669 UNSPECIFIED 09-18-2012 [place] CATARACT [facility] 27911 UNSPECIFIED 09-10-2012 [facility] INTERSTITIA L KERATITIS 36138 SCARRING OF 09-10-2012 [facility] CONJUNCTIVA 56984 UNSPECIFIED 09-10-2012 [facility] ABNORMAL PUPILLARY FUNCTION 2662 OTHER 01-30-2012 [facility] B-COMPLEX PRIMARY DEFICIENCIE CARE CENTER S 2669 UNSPECIFIED 01-30-2012 [facility] VIT[facility]IN B DIAGNOSTICS DEFICIENCY 5225 PERIAPICAL 06-18-2011 [facility] ABSCESS PRIMARY WITHOUT CARE CENTER SINUS 23981 UNSPECIFIED 06-18-2011 [facility] PRIMARY OSTEOPOROSI CARE [...] & LENIN BIODIAGNOST ICS V8281 SPECIAL 03-27-2010 [facility] S[facility] FOR MEDICAL OSTEOPOROSI S 7851 PALPITATION 02-13-2010 [facility] S HEART 53526 BLEPHAROPHI 01-09-2010 [place] [facility] [place] E[facility] & SURG P 2800 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 BIODIAGNOST SECONDARY ICS TO BLOOD LOSS 4011 ESSENTIAL 06-13-2009 [facility] HYPERTENSIO REGIONAL N, [facility] 2692 UNSPECIFIED 04-05-2009 [facility] VITAMIN PRIMARY DEFICIENCY CARE CENTERINC 68737 UNSPECIFIED 03-07-2009 [place] [facility] CORNEAL EYE[place] & OPACITY SURG PSC V7644 SPECIAL 02-23-2009 [facility] SCREENING PRIMARY MALIGNANT CARE NEOPLASM OF CENTERINC PROSTATE V7651 SPECIAL 02-23-2009 [facility] SCREENING PRIMARY FOR CARE MALIGNANT CENTERINC NEOPLASMS COLON 4940 BRONCHIECTA 09-15-2009 [facility] SIS WITHOUT RADIOLOGY ACUTE ASSOCIATES EXACERBATIO PSC N 7862 COUGH 10-26-2008 [facility] 2324 CARCINOMA 10-01-2008 PATHOLOGY & IN SITU OF CYTOLOGY SCALP AND LAB SKIN OF NECK 1733 OTH MALIG 09-30-2008 [facility], NEOPLASM KIM SKIN OTH & UNS PARTS FACE V1083 PERSONAL 09-30-2008 [facility], HISTORY KIM OTHER MALIGNANT NEOPLASM SKIN 1734 OTHER 09-02-2008 [facility] MALIGNA[facility] NEOPLASM OF DERMATOLOGY SCALP & SKIN OF NECK 6944 PEMPHIGUS 09-02-2008 [facility] 6948 OTHER 09-02-2008 [facility] SPECIFIED ASSOC BULLOUS DERMATOLOGY DERMATOSIS 4928 OTHER 07-09-2008 [facility] EMPHYSEMA RADIOLOGY ASSOCIATES PSC 34327 OTHER 07-09-2008 [facility] DISEASES OF RADIOLOGY LUNG NOT ASSOCIATES ELSEWHERE PSC CLASSIFIED 7856 ENLARGEMENT 07-09-2008 [facility] OF LYMPH RADIOLOGY NODES ASSOCIATES PSC 44101 ING VANITA 06-22-2008 [place] W/O MENTION H ANESTHESIA OBST/GANGRE PSC N UNILAT/UNSP EC 496 CHRONIC 06-21-2008 [facility] AIRWAY RADIOLOGY OBSTRUCTION ASSOCIATES NEC PSC 69099 ING VANITA 06-21-2008 [facility] W/O REGIONAL OBST/GANGRE MEDICAL N RECUR CENTER UNILAT/UNS V1201 PERSONAL 06-21-2008 [facility] HISTORY OF REGIONAL TUBERCULOSI MEDICAL S CENTER V7284 UNSPECIFIED 06-21-2008 [place] [facility] PRE-OPERATI MEDICAL VE CENTER EXAMINATION 5539 VANITA UNS 06-14-2008 [facility] SITE ABD PRIMARY CAV W/O CARE MENTION CENTERINC OBST/GANGRE N 16796 UNSPECIFIED 06-09-2007 [facility], PTOSIS OF MURALI EYELID 99495 DERMATOCHAL 06-09-2007 RUDI, ASIS MURALI 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 Procedures Procedure DOS Code Location Performer Comment BLOOD 44204 [facility] COUNT 5 PRIMARY HEMOGLOBI CARE N CENTER ECG 62185 [facility] ROUTINE 5 PRIMARY ECG CARE W/LEAST CENTER 12 LDS TRCG ONLY W/O I&[place] [address] [facility] PROSTATE 5 DIAGNOSTI DIAGNOSTI [place] [address] [facility] THYROID 5 DIAGNOSTI DIAGNOSTI STIMULATI CS CS NG HORMONE TSH COLLECTIO 26431 [facility] N VENOUS 5 DIAGNOSTI DIAGNOSTI BLOOD CS CS VENIPUNCT URE COMPREHEN 38034 [facility] SIVE 5 DIAGNOSTI DIAGNOSTI METABOLIC CS CS PANEL BLOOD 36743 [facility] COUNT 5 DIAGNOSTI DIAGNOSTI COMPLETE CS CS AUTO&AUTO DIFRNTL WBC OPHTH 64068 [facility] 5 EYE HUONG XM&EVAL INSTITUTE INTERMEDI ATE ESTAB PT CORRECTIO 50545 [facility] 4 EYE HUONG TRICHIASI INSTITUTE S EPILATION FORCEPS ONLY OPHTH 11007 [facility] 4 EYE HUONG XM&EVAL INSTITUTE INTERMEDI ATE ESTAB PT GUIDE C1769 [facility] WIRE 4 W W [facility] MEDICAL MEDICAL CATHETER C1887 [facility] G[facility] 64758 [facility] PUNCTURE 4 W W WITHDRAWA [facility] L BLOOD MEDICAL MEDICAL DX INTRDUCR/ C1766 [facility] SHEATH 4 W W GUID [facility] INTRACARD MEDICAL MEDICAL EP NOT PEEL-AWAY R & L HRT 51719 [facility] CATH 4 [place] WINJX HRT HEART ART& [place] D[place] [address]63 [facility] PATRICIA&/OR 4 [place] PRESS HEART C/IRWIN RSRV TRANG 1ST VSL MYOCARDIA 33738 [facility] L SPECT 4 [facility] MULTIPLE HEART STUDIES CV STRS 54465 [facility] TST 4 W W XERS&/OR [facility] RX CONT MEDICAL [place] [address] [facility] MAGNESIUM 4 W [facility] [place] [address] [facility] THYROID 4 W W STIMULATI [facility] [place] [address] [facility] FREE 4 W W THYROXINE [facility] MEDICAL MEDICAL COMPREHEN 01586 J[facility] THOMPSON SIVE 4 W W METABOLIC REGIONAL REGIONAL PANEL MEDICAL MEDICAL COLLECTIO 24861 J[facility] THOMPSON N VENOUS 4 W W BLOOD REGIONAL REGIONAL VENIPUNCT MEDICAL MEDICAL URE ECHO 83134 [facility] TTHRC R-T 4 W W 2D REGIONAL REGIONAL W/WOM-MOD MEDICAL MEDICAL E COMPL SPEC&COLR D BLOOD 99899 [facility] COUNT 4 W W COMPLETE REGIONAL REGIONAL AUTO&AUTO MEDICAL MEDICAL DIFRNTL WBC TECHNETIU A9502 [facility] M TC-99M 4 W W TETROFOSM REGIONAL REGIONAL IN DX PER MEDICAL MEDICAL STUDY DOSE CV STRS 29051 [facility] TST 4 [place] XERS&/OR HEART RX CONT ECG I&[place] [address] [facility] PROSTATE 4 DIAGNOSTI DIAGNOSTI SPECIFIC CS CS ANTIGEN TOTAL ECG 72676 [facility] ROUTINE 4 PRIMARY Y BRE ECG CARE W/LEAST CENTER 12 LDS TRCG ONLY W/O I&R COMPREHEN 91024 [facility] SIVE 4 DIAGNOSTI DIAGNOSTI METABOLIC CS CS PANEL COLLECTIO 07807 [facility] N VENOUS 4 DIAGNOSTI DIAGNOSTI [place] [address] [facility] THYROID 4 DIAGNOSTI DIAGNOSTI STIMULATI CS CS NG HORMONE TSH BLOOD 57398 [facility] COUNT 4 DIAGNOSTI DIAGNOSTI COMPLETE CS CS AUTO&AUTO DIFRNTL WBC OPHTH 06364 [facility] 4 EYE HUONG XM&EVAL INSTITUTE INTERMEDI ATE ESTAB PT CORRECTIO 26161 [facility] N 4 EYE HUONG TRICHIASI INSTITUTE S EPILATION FORCEPS ONLY CORRECTIO 99538 [facility] N 4 EYE [facility]ONG TRICHIASI INSTITUTE S EPILATION FORCEPS ONLY OPHTH 29467 [facility] 4 EYE HUONG XM&EVAL INSTITUTE INTERMEDI ATE ESTAB PT REMOVAL 27100 [facility] IMPACT[facility] 4 PRIMARY PRIMARY CERUMEN CARE CARE INSTRUMEN CENTER SAXIS TATION UNILAT COMPREHEN 69727 [facility] SIVE 4 DIAGNOSTI DIAGNOSTI METABOLIC CS CS PANEL COLLECTIO 61389 [facility] N VENOUS 4 DIAGNOSTI DIAGNOSTI [place] [address] [facility] THYROID 4 DIAGNOSTI DIAGNOSTI [place]ULAT[place] [address] [facility] FREE 4 DIAGNOSTI DIAGNOSTI THYROXINE CS CS CORRECTIO 78483 [facility] N 3 EYE HUONG TRICHIASI INSTITUTE S EPILATION FORCEPS ONLY OPHTH 18980 [facility] 3 EYE HUONG &EVAL INSTITUTE INTERMEDI ATE ESTAB PT CORRECTIO 96232 [facility] N 3 EYE HUONG TRICHIASI INSTITUTE S EPILATION FORCEPS ONLY OPHTH 53896 [facility] 3 EYE HUONG &EVAL INSTITUTE INTERMEDI ATE ESTAB PT INJECTION J2001 [facility] 3 W W LIDOCAINE REGIONAL REGIONAL [facility] MEDICAL MEDICAL INTRAVENO US INFUS 10 MG CATARACT 39074 [facility] REMOVAL 3 EYE HUONG INSERTION INSTITUTE OF LENS OPH BMTRY 06930 [facility] US 3 EYE [facility]ONG ECHOGRAPY INSTITUTE A-SCAN IO LENS PWR JEFF OPHTH 42159 [facility] 3 GLORIA GLORIA XM&EVAL INTERMEDI ATE NEW PT CORRECTIO 02571 [facility] N 3 EYE EYE TRICHIASI INSTITUTE INSTITUTE S EPILATION FORCEPS ONLY CORRECTIO 37627 [facility] N 3 EYE HUONG TRICHIASI INSTITUTE S EPILATION FORCEPS ONLY OPHTH 29436 [facility] 3 EYE HUONG &EVAL INSTITUTE INTERMEDI ATE ESTAB PT 25 04193 [facility] HYDROXY 2 DIAGNOSTI DIAGNOSTI INCLUDES CS CS FRACTIONS IF PERFORMED CYANOCOBA 97008 [facility] EDD 2 DIAGNOSTI DIAGNOSTI VITAMIN CS CS B-12 BLOOD 18002 [facility] COUNT 2 DIAGNOSTI DIAGNOSTI [place] [address] [facility] FERRITIN 2 DIAGNOSTI DIAGNOSTI CS CS IRON 60590 [facility] BINDING 2 DIAGNOSTI DIAGNOSTI CAPACITY CS CS BLOOD 35735 [facility] COUNT 2 DIAGNOSTI DIAGNOSTI COMPLETE CS CS AUTO&AUTO DIFRNTL WBC COMPREHEN 61829 [facility] SIVE 2 DIAGNOSTI DIAGNOST[place] [address] [facility] IRON 2 DIAGNOSTI DIAGNOSTI CS CS COLLECTIO 83116 [facility] N VENOUS 2 DIAGNOSTI DIAGNOSTI [place] [address] [facility] FOLIC 2 DIAGNOSTI DIAGNOSTI ACID CS CS SERUM OPHTH 65297 [facility] 2 FOR HUONG XM&EVAL EYEHLTH & INTERMEDI SURG P ATE ESTAB PT CORRECTIO 14944 [place] N 2 FOR HUONG TRICHIASI EYEHLTH & S SURG P EPILATION FORCEPS ONLY CORRECTIO 31134 [facility] N 2 FOR HUONG TRICHIASI EYEHLTH & S SURG P EPILATION FORCEPS ONLY OPHTH 69574 [facility] 2 FOR HUONG XM&EVAL EYEHLTH & [place] [address] [facility] THYROID 2 [employer] [place] [address] LABORATOR LABORATOR FREE 2 Y & Y & THYROXINE BIODIAGNO BIODIAGNO STICS STICS COMPREHEN 56778 LABORATOR LABORATOR SIVE 2 Y & Y & METABOLIC BIODIAGNO BIODIAGNO PANEL STICS STICS COLLECTIO 08327 LABORATOR LABORATOR N VENOUS 2 Y & Y & BLOOD BIODIAGNO BIODIAGNO [place] [address] LABORATOR LABORATOR THYROID 2 Y & Y & STIMULATI BIODIAGNO BIODIAGNO [place] [address] LABORATOR LABORATOR TRIIODOTH 2 Y & Y & YRONINE BIODIAGNO BIODIAGNO T3 FREE STICS STICS BLOOD 42956 LABORATOR LABORATOR COUNT 2 Y & Y & COMPLETE BIODIAGNO BIODIAGNO AUTO&AUTO STICS STICS DIFRNTL WBC LIPID 74622 LABORATOR LABORATOR PANEL 2 Y & Y & BIODIAGNO BIODIAGNO STICS STICS 25 05-07-201 76986 LABORATOR LABORATOR HYDROXY 2 Y & Y & INCLUDES BIODIAGNO BIODIAGNO FRACTIONS STICS STICS IF PERFORMED CYANOCOBA 13519 LABORATOR LABORATOR EDD 2 Y & Y & VITAMIN BIODIAGNO BIODIAGNO B-12 STICS STICS CORRECTIO 71309 [facility] 2 FOR HUONG TRICHIASI EYEHLTH & S SURG P EPILATION FORCEPS ONLY OPHTH 17034 [facility] 2 FOR HUONG XM&EVAL EYEHLTH & INTERMEDI SURG P ATE ESTAB PT OPHTH 21096 [facility] 2 FOR HUONG XM&EVAL EYEHLTH & INTERMEDI SURG P ATE ESTAB PT CORRECTIO 82071 [facility] 2 FOR HUONG TRICHIASI EYEHLTH & S SUR[place] [address] LABORATOR LABORATOR SURG 1 Y & Y & PATHOLOGY BIODIAGNO BIODIAGNO STICS STICS GROSS&HERB ROSCOPIC EXAM OPHTH 64350 [facility] 1 FOR HUONG XM&EVAL EYEHLTH & INTERMEDI SURG P ATE ESTAB PT COLLECTIO 04431 [facility] N VENOUS 1 PRIMARY ALVAREZ BLOOD CARE DECAL VENIPUNCT CENTER MAR URE CORRECTIO 37733 [facility] N 1 FOR HUONG TRICHIASI EYEHLTH & S SURG P EPILATION FORCEPS ONLY OPHTH 87214 [facility] 1 FOR HUONG XM&EVAL EYEHLTH & INTERMEDI SURG P ATE ESTAB PT OPHTH 16902 [facility] 1 FOR HUONG XM&EVAL EYEHLTH & INTERMEDI SURG P ATE ESTAB PT CORRECTIO 85949 [facility] N 1 FOR HUONG TRICHIASI EYEHLTH & S [place] [address] LABORATOR LABORATOR PROSTATE 1 Y & Y & SPECIFIC BIODIAGNO BIODIAGNO ANTIGEN STICS STICS TOTAL 25 77289 LABORATOR LABORATOR HYDROXY 1 Y & Y & INCLUDES BIODIAGNO BIODIAGNO FRACTIONS STICS STICS IF PERFORMED CYANOCOBA 10427 LABORATOR LABORATOR EDD 1 Y & Y & VITAMIN BIODIAGNO BIODIAGNO B-12 STICS STICS ORGANIC 72435 LABORATOR LABORATOR ACID 1 1 Y & Y & QUANTITAT BIODIAGNO BIODI[place] [address] LABORATOR LABORATOR IRON 1 Y & Y & BIODIAG[place] [address] LABORATOR LABORATOR FOLIC 1 Y & Y & ACID BIODIAGNO BIODIAGNO SERUM STICS STICS COMPREHEN 16287 LABORATOR LABORATOR SIVE 1 Y & Y & METABOLIC BIODIAGNO BIODIAGNO PANEL STICS STICS COLLECTIO 52529 [facility] N VENOUS 1 PRIMARY ALVAREZ BLOOD CARE DECALVO VENIPUNCT CENTER MAR URE IRON 26552 LABORATOR LABORATOR BINDING 1 Y & Y & CAPACITY BIODIAGNO BIODIAGNO STICS STICS LIPOPROTE 21101 LABORATOR LABORATOR IN DIRECT 1 Y & Y & BIODIAGNO BIODIAGNO MEASUREME STICS STICS NT LDL CHOLESTER OL LIPID 50288 LABORATOR LABORATOR PANEL 1 Y & Y & BIODIAGNO BIODIAGNO STICS STICS BLOOD 94090 LABORATOR LABORATOR COUNT 1 Y & Y & COMPLETE BIODIAGNO BIODIAGNO AUTO&AUTO STICS STICS DIFRNTL WBC DXA BONE 97224 [facility] DENSITY 1 W W STUDY 1/> REGIONAL REGIONAL SITES MEDICAL MEDICAL AXIAL SKEL CORRECTIO 52000 [facility] N 1 FOR HUONG TRICHIASI EYEHLTH & S SURG P EPILATION FORCEPS ONLY OPHTH 55931 [facility] 1 FOR HUONG XM&EVAL EYEHLTH & INTERMEDI SURG P ATE ESTAB PT ECG 54729 [facility] ROUTINE 1 PRIMARY ALVAREZ ECG CARE DECALVO W/LEAST CENTER MAR 12 LDS TRCG ONLY W/O I&R CORRECTIO 59352 [facility] N 0 FOR HUONG TRICHIASI EYEHLTH & S SURG P EPILATION FORCEPS ONLY OPHTH 19324 [facility] 0 FOR HUONG XM&EVAL EYEHLTH & [place] [address] LABORATOR LABORATOR FOLIC 0 Y & Y & ACID BIODIAGNO BIODI[place] [address] LABORATOR LABORATOR [id number] 0 Y & Y & SFERRIN BIODIAGNO BIODIAGNO STICS STICS COMPREHEN 36463 LABORATOR LABORATOR SIVE 0 Y & Y & METABOLIC BIODIAGNO BIODIAGNO PANEL STICS STICS CYANOCOBA 69179 LABORATOR LABORATOR EDD 0 Y & Y & VITAMIN BIODIAGNO BIODIAGNO B-12 STICS STICS BLOOD 98589 LABORATOR LABORATOR COUNT 0 Y & Y & COMPLETE BIODIAGNO BIODIAGNO AUTOMATED STICS STICS ORGANIC 10489 LABORATOR LABORATOR ACID 1 0 Y & Y & QUANTITAT BIODIAGNO BIODIAGNO BALAJI STICS STICS CORRECTIO 53821 [place] 0 [place] TRICHIASI EYEHLTH & S SURG P EPILATION FORCEPS ONLY OPHTH 58495 [place] [facility] BOONE MEDICAL 0 FOR HUONG XM&EVAL EYEHLTH & INTERMEDI SURG P ATE ESTAB PT OPHTH 27596 [place] [facility] BOONE MEDICAL 0 FOR HUONG XM&EVAL EYEHLTH & INTERMEDI SURG P ATE ESTAB PT BILIRUBIN 62365 [facility] DIRECT 0 W W [facility] CENTER BLOOD 77129 [facility]OW[facility] COUNT 0 W W COMPLETE [facility] AUTO&AUTO MEDICAL MEDICAL DIFRNTL CENTER CENTER WBC COMPREHEN 81160 [facility]OW[facility] SIVE 0 W W METABOLIC [facility] CENTER COLLECTIO 12039 [facility] N VENOUS 0 W W BLOOD [facility] VENIPUNCT [facility] C[facility] CENTER CORRECTIO 87307 [place] N 0 FOR , MARTHA Emmanuel TRICHIASI EYEHLTH & S SURG PSC EPILATION FORCEPS ONLY OPHTH 41520 [place] [facility] [facility] MEDICAL 0 FOR MARTHA Emmanuel XM&EVAL EYEHLTH & INTERMEDI SURG PSC ATE ESTAB PT OPHTH 61966 [place] MEDICAL 0 FOR , MARTHA Emmanuel XM&EVAL EYEHLTH & INTERMEDI SURG PSC ATE ESTAB PT UNCLASSIF J3490 [facility] IED DRUGS 0 W W [facility] CENTER INJECTION J3010 [facility] FENTANYL 0 W W [place] REGIONAL REGIONAL 0.1 [facility] CENTER ECG 84387 [facility] ROUTINE 0 W W ECG [...] CENTER CENTER TION PER ML I SI&R 54745 [facility] F/NJX PX 0 W W [facility] REGIONAL REGIONAL C-CATHJ MEDICAL MEDICAL PULM&/OR CENTER CENTER SELECT I SI&R 48199 [facility] F/NJX PX 0 W W DURING REGIONAL REGIONAL C-CATHJ MEDICAL MEDICAL VENTR&/[place] [address] [facility] C-CATHJ 0 W W F/SLCTV C [facility]IONAL [facility] CENTER CENTER L HRT 50441 [facility] CATHETERI 0 W W ZATION REGIONAL REGIONAL RETROGRAD MEDICAL MEDICAL E CENTER CENTER BRACHIAL PERQ INJECTION 31534 [facility] CARDIAC 0 W W CATHJ L REGIONAL REGIONAL VENTR/L MEDICAL MEDICAL ATR CENTER CENTER ANGIOGRAP H PLCMT G0269 [facility] OCCL DEVC 0 W W REGIONAL REGIONAL SAMUEL/ART MEDICAL MEDICAL POST CENTER CENTER SURG/INTR VNL PROC BASIC 17303 [facility] METABOLIC 0 W W PANEL REGIONAL REGIONAL CALCIUM MEDICAL MEDICAL TOTAL CENTER CENTER COLLECTIO 52690 [facility] N VENOUS 0 W W BLOOD REGIONAL REGIONAL VENIPUNCT MEDICAL MEDICAL URE CENTER CENTER BLOOD 46005 [facility] THOMPS[facility] COUNT 0 W W COMPLETE REGIONAL REGIONAL AUTO&AUTO MEDICAL MEDICAL DIFRNTL CENTER CENTER WBC MYOCARDIA 91548 [facility] L SPECT 0 W W MULTIPLE REGIONAL [facility] STUDIES [facility] CENTER CENTER CV STRS 56961 [facility]OMPS[facility] TST 0 W W XERS&/OR REGIONAL REGIONAL RX CONT MEDICAL MEDICAL ECG TRCG CENTER CENTER ONLY CV STRS 61735 [facility], TST 0 VALLEY HIWOT R XERS&/OR HEART RX CONT ECG W/O I&R CV STRS 76673 [facility], TST 0 VALLEY HIWOT R XERS&/OR HEART RX CONT ECG I&R ONLY TECHNETIU [id number] JAY Kasper TC-99M 0 W W TETROFOSM REGIONAL REGIONAL IN DX PER [facility] STUDY [facility]ENTER DOSE OPHTH 59296 [facility] 0 FOR , MARTHA L XM&EVAL EYEHLTH & INTERMEDI SURG PSC ATE ESTAB PT CV STRS 02113 [facility] TST 0 VALLEY YOLIS XERS&/OR HEART RX CONT ECG I&R ONLY CV STRS 69714 JAY THOMPSON TST 0 W W XERS&/OR REGIONAL REGIONAL RX CONT MEDICAL MED[facility] ECHO 25887 [place] TTHRC R-T 0 VALLEY N, 2D HEART RAGHURAMA W/WOM-MOD N E COMPL SPEC&COLR D CV STRS 87619 [facility] TST 0 [place] YOLIS XERS&/OR HEART RX CONT ECG W/O I&R 25 [id number] LABORATOR LABORATOR HYDROXY 0 Y & Y & INCLUDES BIODIAGNO BIODIAGNO FRACTIONS STICS STICS IF PERFORMED IRON 69344 LABORATOR LABORATOR BINDING 0 Y & Y & CAPACITY BIODIAGNO BIODIAGNO STICS STICS BLOOD 15633 LABORATOR LABORATOR COUNT 0 Y & Y & COMPLETE BIODIAGNO BIODIAGNO AUTO&AUT[place] [address] LABORATOR LABORATOR IRON 0 Y & Y & BIODIAG[place] [address] LABORATOR LABORATOR FOLIC 0 Y & Y & ACID BIODIAGNO BIODIAGNO SERUM STICS STICS COMPREHEN 10058 LABORATOR LABORATOR SIVE 0 Y & Y & METABOLIC BIODIAGNO BIODIAGNO PANEL STICS STICS COLLECTIO 02660 [facility] N VENOUS 0 PRIMARY ALVAREZ BLOOD CARE DECALVO, VENIPUNCT [place] [address] LABORATOR LABORATOR FERRITIN 0 Y & Y & BIODIAGNO BIODIAGNO STICS STICS CYANOCOBA 62707 LABORATOR LABORATOR EDD 0 Y & Y & VITAMIN BIODIAGNO BIODIAGNO B-12 STICS STICS CORRECTIO 62607 [facility] BOONE N 0 FOR , MARTHA Benitez TRICHIASI EYEHLTH & S SURG PSC EPILATION FORCEPS ONLY OPHTH 44785 [facility] 0 FOR , MARTHA Benitez XM&EVAL EYEHLTH & INTERMEDI SURG PSC ATE ESTAB PT ECG 92000 [facility] ROUTINE 0 PRIMARY ALVAREZ ECG CARE DECALVO, W/[facility] 12 LDS OPAL V TRCG ONLY W/O I&R OPHTH 43376 [facility] 0 FOR , MARTHA Benitez XM&EVAL EYEHLTH & INTERMEDI SURG PSC ATE ESTAB PT CORRECTIO 54886 [facility] N 0 FOR , MARTHA Benitez TRICHIASI EYEHLTH & S SURG PSC EPILATION FORCEPS ONLY CORRECTIO 79454 [facility] N 9 FOR , MARTHA Benitez TRICHIASI EYEHLTH & S SURG PSC EPILATION FORCEPS ONLY OPHTH 98933 [facility] 9 FOR , MARTHA Benitez XM&EVAL EYEHLTH & INTERMEDI SURG PSC ATE ESTAB PT BLOOD 54814 [facility] COUNT 9 [facility] COMPLETE AUTO&AUTO DIFRNTL WBC COLLECTIO 89007 [facility] N VENOUS 9 PRIMARY ALVAREZ BLOOD CARE DECALVO, VENIPUNCT CENTERINC KYA URE OPAL V COMPREHEN 79683 [facility] SIVE 9 [facility] METABOLIC PANEL CORRECTIO 58598 [facility] 9 MARTHA TELLES TRICHIASI EYEHLTH & S SURG PSC EPILATION FORCEPS ONLY OPHTH 33738 [facility] 9 MARTHA TELLES XM&EVAL EYEHLTH & INTERMEDI SURG PSC ATE ESTAB PT OPHTH 69968 [facility] [facility] FOR , MARTHA Benitez XM&EVAL EYEHLTH & INTERMEDI SURG PSC ATE ESTAB PT RADIOLOGI 70791 MEAWSHAE ALEXANDERVIE C EXAM 9 W W CHEST 2 [facility] FRONTAL&L CENTER CENTER ATERAL BLOOD 18405 [facility] COUNT 9 [facility] COMPLETE AUTO&AUTO DIFRNTL WBC URNLS DIP 03030 [facility] 9 [facility] STICK/TAB [place] [address] [facility] HAPTOGLOB 9 [facility] IN QUANTITAT BALAJI PROSTATE [id number] [facility] CANCER 9 [facility] SCREENING ; PSA TEST COMPREHEN 49209 [facility] SIVE 9 [facility] [place] [address] [facility] THYROID 9 [facility] [place] [address] [facility] FOLIC 9 [facility] ACID RBC CYANOCOBA 49974 [facility] EDD 9 [facility] VITAMIN B-12 25 17181 [facility] HYDROXY 9 [facility] INCLUDES FRACTIONS IF PERFORMED CORRECTIO 81051 [facility] 9 FOR , MARTHA Benitez TRICHIASI EYEHLTH & S SURG PSC EPILATION FORCEPS ONLY BLOOD 45836 [facility]AD[facility]IE MEADOWVIE COUNT 9 W [facility] AUTO&AUTO [facility] D[facility] CENTER WBC HEPATIC 33506 [facility] ME[facility]OW[facility] FUNCTION 9 [facility] COLLECT[facility] 43012 JAY THOMPSON N VENOUS 9 W W BLOOD [facility] VENIPUNCT MEDICAL MEDICAL URE CENTER CENTER OPHTH 57278 [facility] 9 MARTHA TELLES XM&EVAL EYEHLTH & INTER[place] [address] PATHOLOGY PATHOLOGY SURG 9 & & PATHOLOGY CYTOLOGY CYTOLOGY LAB LAB GROSS&HERB ROSCOPIC EXAM EXCISION 74670 SANDY DELGADO MALIGNANT 9 , KIM , KIM LESION S/N/H/F/G 0.6-1.0 CM OPHTH 36522 [facility] 9 MARTHA TELLES XM&EVAL EYEHLTH & INTERMEDI SURG PSC ATE ESTAB PT HEPATIC 46620 [facility] FUNCTION 9 [facility] PANEL COLLECTIO 70162 [facility] N VENOUS 9 [facility] BLOOD VENIPUNCT URE BLOOD 88509 [facility] COUNT 9 [facility] COMPLETE AUTO&AUTO DIFRNTL WBC COLLECTIO 27391 [facility] N VENOUS 9 [facility]IC [facility] BLOOD HOLDING HOLDING VENIPUNCT URE GLUC-6-PH 88475 [facility] OSPHATE 9 [facility]IC [facility]IC DEHYDROGE HOLDING HOLDING NASE QUANTITAT BALAJI BILIRUBIN 14794 [facility] TOTAL 9 [facility] PROTEIN 09695 [facility] XCPT 9 AMERIC AMERIC REFRACTOM HOLDING HOLDING ETRY SERUM PLASMA/WH L BLD BLOOD 00308 [facility] COUNT 9 AMERIC AMERIC COMPLETE HOLDING HOLDING AUTO&[place] [address] UNIVERSIT TERESA, LIP 9 Y [place] [address] [facility] PHOSPHATA 9 AMERIC AMERIC SE HOLDING HOLDING ALKALINE COL-CHR/M 97974 [facility] S NONDRUG 9 AMERIC AMERIC ANALYTE HOLDING HOLDING LEV QUAL/[place] [address] [facility] UREA 9 AMERIC AMERIC NITROGEN HOLDING HOLDING QUANTITAT BALAJI CALCIUM 04197 [facility] TOTAL 9 [employer] HOLDING HOLDING TRANSFERA 24416 [facility] SE 9 AMERIC AMERIC ASPARTATE HOLDING HOLDING AMINO AST SGOT SODIUM 87118 [facility] SERUM 9 AMERIC AMERIC PLASMA OR HOLDING HOLDING WHOLE BLOOD ALBUMIN 20367 [facility] SERUM 9 AMERIC AMERIC PLASMA/WH HOLDING HOLDING OLE BLOOD BX SKIN 34955 UNIVERSIT TERESA, SUBCUTANE 9 Y ASSOC SPENCER P OUS&/MUCO DERMATOLO US GY MEMBRANE 1 LESION GLUCOSE 54988 [facility] QUANTITAT 9 AMERIC AMERIC BALAJI BLOOD HOLDING HOLDING XCPT REAGENT STRIP CREATININ 41753 [facility] E BLOOD 9 [employer]IC [employer] HOLDING HOLDING POTASSIUM 88581 [facility] SERUM 9 AMERIC AMERIC PLASMA/WH HOLDING HOLDING OLE BLOOD CHLORIDE 59393 [facility] BLD 9 [facility]IC [employer] HOLDING HOLDING OPHTH 48584 [facility] 9 FOR , MARTHA Benitez XM&EVAL EYEHLTH & INTERMEDI SURG PSC ATE ESTAB PT 3D 15526 MICHAELA PRICE, RENDERING 9 IGLESIA Hastings W/VLADP RADIOLOGY & POSTPROCE ASSOCIATE SS S PSC SUPERVISI ON CT THORAX 43266 MICHAELA PRICE, Vahe Zabala/CONTRAS RADIOLOGY T MATERIAL ASSOCIATE S PSC INJECTION J3010 MEADOWVIE MEADOWVIE FENTANYL 9 W W CITRATE REGIONAL REGIONAL 0.1 MG [facility] C[facility] ANESTHESI 90577 COMMONWEA BRAUGHTON A HERNIA 9 LTH , CELESTE REPAIR ANESTHESI LOWER A [facility] ABDOMEN NOS RINGERS J7120 MEADOWVIE MEADOWVIE LACTATE 9 W W INFUSION REGIONAL REGIONAL UP TO MEDICAL MEDICAL 1000 CC CENTER CENTER LAPAROSCO 99830 MEADOWVIE MEADOWVIE PY SURG 9 W W RPR REGIONAL REGIONAL INITIAL [facility] INGUINAL CENTER CENTER HERNIA MESH C1781 MEADOWVIE MEADOWVIE 9 W W [facility] CENTER INJECTION J2250 MEADOWVIE MEADOWVIE 9 W W MIDAZOLAM REGIONAL REGIONAL HCL PER MEDICAL MEDICAL 1 MG SAXIS CENTER INJECTION J0690 MEADOWVIE MEADOWVIE 9 W W CEFAZOLIN REGIONAL REGIONAL SODIUM [facility] 500 MG CENTER SAXIS URNLS DIP 80186 MEADOWVIE MEADOWVIE 9 W W STICK/TAB REGIONAL REGIONAL LET MEDICAL MEDICAL REAGENT CENTER CENTER AUTO MICROSCOP Y BLOOD 56551 MEADOWVIE MEADOWVIE COUNT 9 W W COMPLETE REGIONAL REGIONAL AUTO&AUTO MEDICAL MEDICAL DIFRNTL [facility] WBC RADIOLOGI 89829 IVANCassie SANTILLAN EXAM 9 IGLESIA S CHEST 2 RADIOLOGY VIEWS FRONTAL&L ASSOCIATE ATERAL S PSC COMPREHEN 05327 MEADOWVIE MEADOWVIE SIVE 9 W W METABOLIC REGIONAL REGIONAL PANEL [facility] SAX[facility] CENTER COLLECTIO 29772 MEADOWVIE MEADOWVIE N VENOUS 9 W W BLOOD REGIONAL [facility] VENIPUNCT MEDICAL MEDICAL URE SAXIS CENTER ECG 06420 MEADOWVIE MEADOWVIE ROUTINE 9 W W ECG REGIONAL REGIONAL W/LEAST MEDICAL MEDICAL 12 LDS [facility] TRCG ONLY W/O I&R OPH BMTRY 84297 [facility] 9 FOR , MARTHA Benitez ECHOGRAPY EYEHLTH & A-SCAN SURG PSC IO LENS PWR JEFF OPHTH 51321 [facility] 9 FOR , MARTHA Benitez XM&EVAL EYEHLTH & COMPRHNSV SURG PSC ESTAB PT 1/> OPHTH 34030 [facility] 8 FOR MARTHA XM&EVAL EYEHLTH & INTERMEDI SURG PSC ATE ESTAB PT OPHTH 77635 [facility] 8 FOR MARTHA XM&EVAL EYEHLTH & COMPRE SURG PSC NEW PT 1/> VST OPHTH 40433 RUDI GRIJALVA, MEDICAL 8 MURALI CARRION XM&EVAL COMPRHNSV ESTAB PT 1/> FUNDUS 27971 RUDI GRIJALVA PHOTOGRAP 8 MURALI CARRION HY W/INTERPR ETATION & REPORT Encounters Encounter Start End Date Code Location Performer Type Date OFFICE 52555 [facility] 5 [facility] 15 CENTER MINUTES OFFICE 52756 [facility] 5 5 [facility]IMARY T VISIT CARE 15 CENTER MINUTES OFFICE 89643 SHE[facility] CARRION OUTPATIEN 4 4 ABR ABR T VISIT 15 MINUTES [facility] 4 4 PRIMARY T VISIT CARE 25 CENTER MINUTES OFFICE 82516 [facility] 4 4 [facility]IMARY T VISIT CARE 25 CENTER MINUTES [facility] 90139 [facility] 3 3 PRIMARY T VISIT CARE 15 CENTER MINUTES OFFICE 98327 [facility] 2 2 PRIMARY T VISIT CARE 25 CENTER MINUTES OFFICE 22587 [facility] 2 2 PRIMARY T VISIT CARE 25 CENTER MINUTES OFFICE 07590 [facility] 1 1 PRIMARY T VISIT CARE 10 CENTER MINUTES OFFICE 81289 [facility] OUTPATIEN 1 1 PRIMARY ALVAREZ T VISIT CARE DECALVO 15 CENTER MAR MINUTES OFFICE 50990 [facility] 1 1 PRIMARY T VISIT CARE 15 CENTER MINUTES OFFICE 25320 [facility] 1 1 PRIMARY T VISIT CARE 15 CENTER MINUTES OFFICE 53162 [facility] 1 1 PRIMARY T VISIT CARE 15 CENTER MINUTES [facility] 1 1 [facility] 22793 [facility] 1 1 PRIMARY T VISIT CARE 15 CENTER MINUTES OFFICE 30693 [facility] 1 1 [facility] N RAG T NEW 45 HEART MINUTES OFFICE 25795 [facility] 0 0 PRIMARY T VISIT CARE 15 CENTER MINUTES HOSPITAL [facility] - 0 0 W [facility] MEADOWVIE - 0 0 W [facility] OFFICE 45883 [facility] OUTPATIEN 0 0 VALLEY YOLIS T VISIT HEART 25 MINUTES [facility] MEADOWVIE - 0 0 W [facility] MEADOW[facility]IE - 0 0 W [facility] MEADOW[facility]IE - 0 0 W [facility] FREE 0 0 [facility] OFFICE 50304 [facility] 0 0 PRIMARY T VISIT CARE [address] [facility] [facility] MINUT[facility] OFFICE 36939 [facility] 0 0 PRIMARY T VISIT CARE [address] [facility] [facility] MINUTES [facility] FREE 0 [address] [facility] FREE 0 0 [facility] OFF[facility] 01082 [facility] 0 0 PRIMARY T VISIT CARE [address] [facility] [facility] MINUTES [facility] FREE 9 9 [facility] OFF[facility] 56352 [facility] 9 9 PRIMARY T VISIT CARE [address] [facility] [facility] MINUTES [facility] FREE 9 9 [facility] OFF[facility] 39709 [facility] 9 9 PRIMARY T VISIT CARE [address] [facility] MINUTES [facility] FREE 9 9 [facility] OFF[facility] 43751 [facility] 9 9 PRIMARY T VISIT 5 CARE MINUTES [facility] MEADOWVIE - 9 9 W [facility] [place] FREE 9 9 [facility] OFFICE 51396 [facility] 9 9 PRIMARY T VISIT CARE 25 [facility] MEAW - 9 9 W [facility] OFFICE 99415 [facility] CONSULTAT 9 9 , KIM KIM ION NEW/ESTAB PATIENT 40 MIN OFFICE 51285 UNIVERSMONSE TERESA, CONSULTAT 9 9 Y ASSOC SPENCER Miller ION DERMATOLO NEW/ESTAB GY PATIENT 40 MIN [facility] - 9 9 W [facility] 9 W [facility] OFFICE 84815 [facility] 9 9 PRIMARY T NEW [address] [facility] FREE 9 9 [facility] [facility] OFFICE 87898 [facility] OUTPATIEN 9 9 MARTHA TELLES T VISIT EYEHLTH & 15 SURG PSC MINUTES OFFICE 99978 RUDI GRIJALVA OUTPATIEN 8 8 MURALI CARRION T VISIT 10 MINUTES
--- OUTSIDE RECORDS SUMMARY | 2016-07-19 21:25 | External Medical Summary Rpt ---
Author Author , Organization [employer] Address Unknown Phone Unavailable Care Team Providers Care Desktop Support Associate Name Role Phone RUDI MURALI, Unavailable Unavailable MURALI GRIJALVA, Unavailable Unavailable MARTHA VERNON, Unavailable Unavailable MARTHA SHOOK JOHN M, Unavailable Unavailable RAHEEM MITCHELL JEFFREY P, Unavailable Unavailable SPENCER MOORE MALLORY DECALVO Unavailable Unavailable MAR, MALLORY DECALVO MAR MALLORY DECALVO, Unavailable Unavailable CELY V, MALLORY DECALVO, CELY V MAE KATHY, MAE KATHY Unavailable Unavailable HAGENSCHNEMONE KAUFMAN, Unavailable Unavailable HEIDICHAJ NASH, Unavailable Unavailable MIKAYLA Farr, MIKAYLA NASH RICHARD S, Unavailable Unavailable IGLESIA PRICE SHEYLA ABR, SHEYLA Unavailable Unavailable ABR SHEYLA ABR, SHEYLA Unavailable Unavailable [facility] Un[facility], [facility] & Unavailable Unavailable [facility], [facility] Unavailable Unavailable [facility], [facility], Unavailable Unavailable [facility] & Unavailable [facility] & Unavailable Unavailable [facility]available Unavailable [facility] Unavailable Unavailable [facility] JAYCE RIVERA Unavailable Unavailable [facility], Unavailable Unavailable [facility] EDUARDO, Unavailable Unavailable DANIELLE DÍAZ [facility] Unavailable Unavailable MEDICAL, [facility] Unavailable Unavailable [facility], [facility], Unavailable Unavailable [facility] PATHOLOGY & CYTOLOGY Unavailable Unavailable LAB, PATHOLOGY & CYTOLOGY LAB [facility], Unavailable Unavailable [facility], Unavailable Unavailable [facility] KIM DELGADO, Unavailable Unavailable KIM DELGADO, Unavailable Unavailable RENEE RAG RENEE, Unavailable Unavailable RAGHURAMAN, RENEE, RAGHURAMAN NATIVIDAD VARGAS Unavailable Unavailable NATIVIDAD ENRIQUEZ Unavailable Unavailable GLORIA Purpose Continuity of Care Document - 02-21-2007 through 2016 Problems Code Diagnosis DOS Provider Status 2449 UNSPECIFIED 04-05-2014 [facility] ISM 4279 UNSPECIFIED 04-05-2014 [facility] CARDIAC PRIMARY DYSRHYTHMIA CARE CENTER 60018 OTHER 04-05-2014 [facility] MALAISE AND PRIMARY FATIGUE CARE CENTER 3688 OTHER 02-23-2014 [facility] VISUAL DISTURBANCE S 99727 PAIN IN OR 02-23-2014 [facility] 22215 URINARY 02-23-2014 [facility] FREQUENCY [facility] 94031 NONSPECIFIC 02-23-2014 [facility] ABNORMAL [facility] UNSPEC CV FUNCTION STUDY V7791 SCREENING 02-23-2014 [facility] LIPOID [facility] DISORDERS 88518 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 34225 JL MUCOUS 02-22-2014 [facility] PEMPHIGOID [facility]ERSON W/OCULAR INVLV 4149 UNSPECIFIED 10-15-2013 [facility] CHRONIC ISCHEMIC HEART DISEASE 48036 OTHER 10-15-2013 [facility] SPECIFIED CARDIAC DYSRHYTHMIA S 2859 UNSPECIFIED 10-07-2013 [facility] ANEMIA REGIONAL MEDICAL 4139 OTHER AND 10-07-2013 [facility] UNSPECIFIED HEART ANGINA PECTORIS 34763 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 [facility] ATHEROSCLER REGIONAL [facility] DIOMEDE MEDICAL CORONARY ARTERY 4280 CONGESTIVE 10-07-2013 [facility] HEART HEART FAILURE UNSPECIFIED 83610 CHEST PAIN 10-07-2013 [facility] UNSPECIFIED REGIONAL MEDICAL 95614 OTH 10-07-2013 [facility] NONSPECIFIC HEART ABNORM CV SYSTEM FUNCTION STUDY 59181 SHORTNESS 09-17-2013 [place] 91104 NONSPECIFIC 09-17-2013 [facility] ABNORMAL HEART ELECTROCARD IOGRAM 58935 ANEMIA OF 09-07-2013 [facility] CHRONIC DISEASE 7804 DIZZINESS 09-07-2013 [facility] GIDDINESS [facility]ARE [facility] 7840 HEADACHE 09-07-2013 [facility] V5869 LONG-TERM 09-07-2013 [facility] (CURRENT[facility] USE OF OTHER MEDICATIONS V431 LENS 04-24-2013 [place] [facility] BY [facility] OTHER INSTITUTE MEANS 2469 UNSPECIFIED 03-05-2013 [facility] DISORDER [facility]AGNO[facility]ICS OF THYROID 2689 UNSPECIFIED 03-05-2013 [facility] VITAMIN D DIAGNO[facility]ICS DEFICIENCY 49842 UNSPECIFIED 03-05-2013 [facility] OF EYE 3804 IMPACTED 03-05-2013 [facility] CERUMEN [facility] 95181 DISORDER OF 03-05-2013 [facility] BONE AND DIAGNOSTICS CARTILAGE UNSPECIFIED V851 BODY MASS 03-05-2013 [facility] INDEX [facility] BETWEEN 19-24 ADULT 84787 NUCLEAR 09-18-2012 [facility] 3669 UNSPECIFIED 09-18-2012 [facility] 99071 UNSPECIFIED 09-10-2012 [facility] INTERSTITIA L KERATITIS 34648 SCARRING OF 09-10-2012 [facility] CONJUNCTIVA 32748 UNSPECIFIED 09-10-2012 [facility] ABNORMAL PUPILLARY FUNCTION 2662 OTHER 01-30-2012 [facility] B-COMPLEX PRIMARY DEFICIENCIE CARE CENTER S 2669 UNSPECIFIED 01-30-2012 [facility]IT[facility] B [facility]AG[facility] DEFICIENCY 5225 PERIAPICAL 06-18-2011 [facility] ABSCESS PRIMARY WITHOUT CARE CENTER SINUS 77552 UNSPECIFIED 06-18-2011 [facility] PRIMARY OSTEOPOROSI CARE CENTER S 7945 NONSPECIFIC 06-18-2011 LABORATORY ABNORM & RESULTS BIODIAGNOST THYROID ICS FUNCT STUDY V0382 NEED PROPH 06-18-2011 [facility] VACCINATION PRIMARY AGAINST CARE CENTER STREP PNEUMONE 7099 UNSPECIFIED 01-16-2011 [facility] DISORDER PRIMARY OF CARE CENTER SKIN&SUBCUT ANEOUS TISSUE 7821 RASH AND 12-04-2010 [facility] [place] OTHER PRIMARY NONSPECIFIC CARE CENTER SKIN ERUPTION 6929 CONTACT 09-08-2010 [facility] DERMATITIS& PRIMARY OTHER CARE CENTER ECZEMA DUE UNSPEC CAUSE 2722 MIXED 05-02-2010 LABORATORY HYPERLIPIDE & LENIN BIODIAGNOST ICS V8281 SPECIAL 03-27-2010 [facility] SCREENING REGIONAL FOR MEDICAL OSTEOPOROSI S 7851 PALPITATION 02-13-2010 [facility] S HEART 57811 BLEPHAROPHI 01-09-2010 [place] [facility] [place] [facility] & SURG P 2800 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 BIODIAGNOST SECONDARY ICS TO BLOOD LOSS 4011 ESSENTIAL 06-13-2009 [facility] HYPERTENSIO REGIONAL N, [facility] 2692 UNSPECIFIED 04-05-2009 [facility] VITAMIN PRIMARY DEFICIENCY CARE CENTERINC 93690 UNSPECIFIED 03-07-2009 [place] [facility] CORNEAL E[facility] & OPACITY SURG PSC V7644 SPECIAL 02-23-2009 [facility] SCREENING PRIMARY MALIGNANT CARE NEOPLASM OF CENTERINC PROSTATE V7651 SPECIAL 02-23-2009 [facility] SCREENING PRIMARY FOR CARE MALIGNANT CENTERINC NEOPLASMS COLON 4940 BRONCHIECTA 10-26-2008 [facility]IS WITHOUT RADIOLOGY ACUTE ASSOCIATES EXACERBATIO PSC N 7862 COUGH 10-26-2008 [facility] 2324 CARCINOMA 10-01-2008 PATHOLOGY & IN SITU OF CYTOLOGY SCALP AND LAB SKIN OF NECK 1733 OTH MALIG 09-30-2008 [facility], NEOPLASM KIM SKIN OTH & UNS PARTS FACE V1083 PERSONAL 09-30-2008 [facility], HISTORY KIM OTHER MALIGNANT NEOPLASM SKIN 1734 OTHER 09-02-2008 [facility] MALIGNANT ASSOC NEOPLASM OF DERMATOLOGY SCALP & SKIN OF NECK 6944 PEMPHIGUS 09-02-2008 [facility] 6948 OTHER 09-02-2008 [facility] SPECIFIED ASSOC BULLOUS DERMATOLOGY DERMATOSIS 4928 OTHER 07-09-2008 [facility] EMPHYSEMA RADIOLOGY ASSOCIATES PSC 60935 OTHER 07-09-2008 [facility] DISEASES OF RADIOLOGY LUNG NOT ASSOCIATES ELSEWHERE PSC CLASSIFIED 7856 ENLARGEMENT 07-09-2008 [facility] OF LYMPH RADIOLOGY NODES ASSOCIATES PSC 92690 ING VANITA 06-22-2008 [place] W/O MENTION H ANESTHESIA OBST/GANGRE PSC N UNILAT/UNSP EC 496 CHRONIC 06-21-2008 [facility]AY [facility] OBSTRUCTION ASSOCIATES NEC PSC 77635 ING VANITA 06-21-2008 [facility] W/O REGIONAL OBST/GANGRE MEDICAL N RECUR CENTER UNILAT/UNS V1201 PERSONAL 06-21-2008 [facility] HISTORY OF REGIONAL TUBERCULOSI MEDICAL S [place] V7284 UNSPECIFIED 06-21-2008 [facility] PRE-OPERATI MEDICAL VE CENTER EXAMINATION 5539 VANITA UNS 06-14-2008 [facility] SITE ABD PRIMARY CAV W/O CARE MENTION CENTERINC OBST/GANGRE N 56453 UNSPECIFIED 06-09-2007 [facility] PTOSIS OF MURALI EYEL[facility] 36038 DERMATOCHAL 06-09-2007 [facility] ASIS MURALI 52851 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 Procedures Procedure DOS Code Location Performer Comment BLOOD 26174 [facility] MAE KATHY COUNT 5 PRIMARY HEMOGLOBI CARE N CENTER ECG 73748 [facility] MAE KATHY ROUTINE 5 PRIMARY ECG CARE W/LEAST CENTER 12 LDS TRCG ONLY W/O I&[place] [address] [facility] PROSTATE 5 DIAGNOSTI DIAGNOSTI SPECIFIC CS CS ANTIGEN TOTAL BLOOD 95919 [facility] COUNT 5 DIAGNOSTI DIAGNOSTI COMPLETE CS CS AUTO&[place] [address] [facility] THYROID 5 DIAGNOSTI DIAGNOSTI STIMULATI CS CS NG HORMONE TSH COLLECTIO 85061 [facility] N VENOUS 5 DIAGNOSTI DIAGNOSTI BLOOD CS CS VENIPUNCT URE COMPREHEN 67235 [facility] SIVE 5 DIAGNOSTI DIAGNOSTI METABOLIC CS CS PANEL OPHTH 55235 [facility] 5 EYE HUONG XM&EVAL INSTITUTE INTERMEDI ATE ESTAB PT OPHTH 80973 [facility] 4 EYE HUONG XM&EVAL INSTITUTE INTERMEDI ATE ESTAB PT CORRECTIO 80473 [facility] 4 EYE HUONG TRICHIASI ANDERSON [place]IL[place] ONLY [place] DOP 80712 [facility] PATRICIA&/OR 4 [facility] PRESS HEART C/IRWIN RSRV TRANG 1ST VSL INTRDUCR/ C1766 [facility] SHEATH 4 W W GUID [facility] INTRACARD MEDICAL MEDICAL EP NOT PEEL-AWAY R & L HRT 69235 [facility] CATH 4 [facility] WINJX HRT HEART ART& L VENTR IMG ARTERIAL 64852 [facility] PUNCTURE 4 W W WITHDRAWA [facility] BLOOD MEDICAL MEDICAL DX GUIDE C1769 [facility] WIRE 4 W W [facility] MEDICAL MEDICAL CATHETER C1887 [facility] GUIDING 4 W W [facility] MEDICAL MEDICAL BLOOD 18332 [facility] COUNT 4 W W COMPLETE [facility] AUTO&AUTO MEDICAL MEDICAL DIFRNTL WBC ECHO 43125 [facility] TTHRC R-T 4 W W 2D [facility] W/WOM-MOD MEDICAL MEDICAL E COMPL SPEC&COLR D TECHNETIU A9502 JAY THOMPSON M TC-99M 4 W W TETROFOSM [facility] IN DX PER MEDICAL MEDICAL STUDY DOSE MYOCARDIA 14236 [facility] L SPECT 4 [place] [address] [facility] MAGNESIUM 4 W W REGIONAL REGIONAL MEDICAL MEDICAL CV STRS 02884 [facility] TST 4 W W XERS&/OR REGIONAL REGIONAL RX CONT MEDICAL MEDICAL ECG TRCG ONLY COLLECTIO 25717 [facility] N VENOUS 4 W W BLOOD REGIONAL REGIONAL VENIPUNCT MEDICAL MEDICAL URE COMPREHEN 24967 [facility] SIVE 4 W W METABOLIC REGIONAL [place] [address] [facility] FREE 4 W W THYROXINE [place]ION[place] [address] [facility] THYROID 4 W W STIMULATI REGIONAL REGIONAL NG MEDICAL MEDICAL HORMONE TSH CV STRS 91623 [place] [facility] TST 4 VALLEY YOLIS XERS&/OR HEART RX CONT ECG I&[place] [address] [facility] THYROID 4 DIAGNOSTI DIAGNOSTI STIMULATI CS CS NG HORMONE TSH COLLECTIO 52352 [facility] N VENOUS 4 DIAGNOSTI DIAGNOSTI BLOOD CS CS VENIPUNCT URE COMPREHEN 70590 [facility] SIVE 4 DIAGNOSTI DIAGNOSTI METABOLIC CS CS PANEL ECG 81453 [facility] ROUTINE 4 PRIMARY Y BRE ECG CARE W/LEAST CENTER 12 LDS TRCG ONLY W/O I&[place] [address] [facility] PROSTATE 4 DIAGNOSTI DIAGNOSTI SPECIFIC CS CS ANTIGEN TOTAL BLOOD 45998 [facility] COUNT 4 DIAGNOSTI DIAGNOSTI COMPLETE CS CS AUTO&AUTO DIFRNTL WBC OPHTH 68027 [facility] 4 EYE HUONG XM&EVAL INSTITUTE INTERMEDI ATE ESTAB PT CORRECTIO 42570 [facility] N 4 EYE HUONG TRICHIASI INSTITUTE S EPILATION FORCEPS ONLY CORRECTIO 52433 [facility] N 4 EYE HUONG TRICHIASI INSTITUTE S EPILATION FORCEPS ONLY OPHTH 56693 [facility] 4 EYE HUONG XM&EVAL INSTITUTE INTERMEDI ATE ESTAB PT REMOVAL 44536 [facility] IMPACTED 4 PRIMARY PRIMARY CERUMEN CARE CARE INSTRUMEN [place] [address] [facility] FREE 4 DIAGNOSTI [place] [address] [facility] THYROID 4 DIAGNOSTI DIAGNOSTI STIMULATI CS CS NG HORMONE TSH COLLECTIO 67126 [facility] N VENOUS 4 DIAGNOSTI DIAGNOSTI BLOOD CS CS VENIPUNCT URE COMPREHEN 55006 [facility] SIVE 4 DIAGNOSTI DIAGNOSTI METABOLIC CS CS PANEL OPHTH 56163 [facility] 3 EYE HUONG &EVAL ANDERSON INTERMEDI ATE ESTAB PT CORRECTIO 32090 [facility] N 3 EYE HUONG TRICHIASI INSTITUTE S EPILATION FORCEPS ONLY OPHTH 89806 [facility] 3 EYE HUONG &EVAL ANDERSON INTERMEDI ATE ESTAB PT CORRECTIO 79244 [facility] N 3 EYE HUONG TRICHIASI INSTITUTE S EPILATION FORCEPS ONLY INJECTION J2001 [facility] 3 W W LIDOCAINE REGIONAL REGIONAL HCL MEDICAL MEDICAL INTRAVENO US INFUS 10 MG CATARACT 34654 [facility] REMOVAL 3 W W INSERTION REGIONAL REGIONAL OF LENS MEDICAL MEDICAL OPH BMTRY 60424 [facility] 3 EYE HUONG ECHOGRAPY INSTITUTE A-SCAN IO LENS PWR JEFF OPHTH 01875 [facility] 3 GLORIA GLORIA &EVAL INTERMEDI ATE NEW PT CORRECTIO 67265 [facility] N 3 EYE HUONG TRICHIASI INSTITUTE S EPILATION FORCEPS ONLY CORRECTIO 89138 [facility] N 3 EYE HUONG TRICHIASI INSTITUTE S EPILATION FORCEPS ONLY OPHTH 14097 [facility] 3 EYE HUONG &EVAL [place] [address] [facility] FERRITIN 2 DIAGNOSTI DIAGNOSTI CS CS BLOOD 91757 [facility] COUNT 2 DIAGNOSTI DIAGNOSTI RETICULOC CS CS YTE AUTOMATED CYANOCOBA 54002 [facility] EDD 2 DIAGNOSTI DIAGNOSTI VITAMIN CS CS B-12 25 24670 [facility] HYDROXY 2 DIAGNOSTI DIAGNOSTI INCLUDES [place] [address] [facility] FOLIC 2 DIAGNOSTI DIAGNOSTI ACID CS CS SERUM COLLECTIO 83227 [facility] N VENOUS 2 DIAGNOSTI DIAGNOSTI [place] [address] [facility] IRON 2 DIAGNOSTI DIAGNOSTI CS CS COMPREHEN 34586 [facility] SIVE 2 DIAGNOSTI DIAGNOSTI METABOLIC CS CS PANEL BLOOD 02212 [facility] COUNT 2 DIAGNOSTI DIAGNOSTI COMPLETE CS CS AUTO&AUTO DIFRNTL WBC IRON 56780 [facility] BINDING 2 DIAGNOSTI DIAGNOSTI CAPACITY CS CS CORRECTIO 34959 [facility] BOONE N 2 FOR HUONG TRICHIASI EYEHLTH & S SURG P EPILATION FORCEPS ONLY OPHTH 93527 [facility] 2 FOR HUONG XM&EVAL EYEHLTH & INTERMEDI SURG P ATE ESTAB PT OPHTH 85575 [facility] 2 FOR HUONG XM&EVAL EYEHLTH & INTERMEDI SURG P ATE ESTAB PT CORRECTIO 43148 [facility] BOONE N 2 FOR HUONG TRICHIASI EYEHLTH & S [place] [address] [facility] 2 [facility] [employer] NG HORMONE TSH CYANOCOBA 02023 LABORATOR LABORATOR EDD 2 Y & Y & VITAMIN BIODIAGNO BIODIAGNO B-12 STICS STICS 25 13423 LABORATOR LABORATOR HYDROXY 2 Y & Y & INCLUDES BIODIAGNO BIODIAGNO FRACTIONS [place] [address] LABORATOR LABORATOR THYROID 2 Y & Y & STIMULATI BIODIAGNO BIODIAGNO NG STICS STICS HORMONE TSH COLLECTIO 36991 LABORATOR LABORATOR N VENOUS 2 Y & Y & BLOOD BIODIAGNO BIODIAGNO VENIPUNCT STICS STICS URE COMPREHEN 10593 LABORATOR LABORATOR SIVE 2 Y & Y & METABOLIC BIODIAGNO [place] [address] LABORATOR LABORATOR FREE 2 Y & Y & THYROXINE BIODIAGNO BIODIAGNO STICS STICS LIPID 06709 LABORATOR LABORATOR PANEL 2 Y & Y & BIODIAGNO BIODIAGNO STICS STICS BLOOD 89255 LABORATOR LABORATOR COUNT 2 Y & Y & COMPLETE BIODIAGNO BIODIAGNO AUTO&AUTO [place] [address] LABORATOR LABORATOR TRIIODOTH 2 Y & Y & YRONINE BIODIAGNO BIODIAGNO T3 FREE STICS STICS OPHTH 36640 [facility] 2 FOR HUONG XM&EVAL EYEHLTH & INTERMEDI SURG P ATE ESTAB PT CORRECTIO 71337 [facility] N 2 FOR HUONG TRICHIASI EYEHLTH & S SURG P EPILATION FORCEPS ONLY OPHTH 90609 [facility] 2 FOR HUONG XM&EVAL EYEHLTH & INTERMEDI SURG P ATE ESTAB PT CORRECTIO 23758 [facility] N 2 FOR HUONG TRICHIASI EYEHLTH & S SUR[place] [address] LABORATOR LABORATOR SURG 1 Y & Y & PATHOLOGY BIODIAGNO BIODIAGNO STICS STICS GROSS&HERB ROSCOPIC EXAM OPHTH 56756 [facility] 1 FOR HUONG XM&EVAL EYEHLTH & INTERMEDI SURG P ATE ESTAB PT COLLECTIO 81677 [facility] N VENOUS 1 PRIMARY ALVAREZ BLOOD CARE DECALVO VENIPUNCT CENTER MAR URE OPHTH 38866 [facility] 1 FOR HUONG XM&EVAL EYEHLTH & INTERMEDI SURG P ATE ESTAB PT CORRECTIO 24991 [facility] N 1 FOR HUONG TRICHIASI EYEHLTH & S SURG P EPILATION FORCEPS ONLY CORRECTIO 49141 [facility] N 1 FOR HUONG TRICHIASI EYEHLTH & S SURG P EPILATION FORCEPS ONLY OPHTH 07389 [facility] 1 FOR HUONG XM&EVAL EYEHLTH & INTERMEDI SURG P ATE ESTAB PT BLOOD 49267 LABORATOR LABORATOR COUNT 1 Y & Y & COMPLETE BIODIAGNO BIODIAGNO AUTO&AUTO STICS STICS DIFRNTL WBC LIPID 86507 LABORATOR LABORATOR PANEL 1 Y & Y & BIODIAGNO BIODIAGNO STICS STICS LIPOPROTE 32212 LABORATOR LABORATOR IN DIRECT 1 Y & Y & BIODIAGNO BIODIAGNO MEASUREME STICS STICS NT LDL CHOLESTER OL IRON 59705 LABORATOR LABORATOR BINDING 1 Y & Y & CAPACITY BIODIAGNO BIODIAGNO STICS STICS ORGANIC 31509 LABORATOR LABORATOR ACID 1 1 Y & Y & QUANTITAT BIODIAGNO BIODIAGNO BALAJI STICS STICS CYANOCOBA 20884 LABORATOR LABORATOR EDD 1 Y & Y & VITAMIN BIODIAGNO BIODIAGNO B-12 STICS STICS 25 33073 LABORATOR LABORATOR HYDROXY 1 Y & Y & INCLUDES BIODIAGNO BIODIAGNO FRACTIONS [place] [address] LABORATOR LABORATOR PROSTATE 1 Y & Y & SPECIFIC BIODIAGNO BIODIAGNO ANTIGEN STICS STICS TOTAL COLLECTIO 85770 [facility] N VENOUS 1 PRIMARY ALVAREZ BLOOD CARE DECALVO VENIPUNCT CENTER MAR URE COMPREHEN 11726 LABORATOR LABORATOR SIVE 1 Y & Y & METABOLIC BIODIAGNO BIODIAG[place] [address] LABORATOR LABORATOR FOLIC 1 Y & Y & ACID BIODIAGNO [place] [address] LABORATOR LABORATOR IRON 1 Y & Y & BIODIAGNO BIODIAGNO STICS STICS DXA BONE 96197 [facility] DENSITY 1 EIDER SHAE STUDY 1/> RADIOLOGY SITES ASSOCIAT AXIAL SKEL CORRECTIO 22321 [facility] BOONE N 1 FOR HUONG TRICHIASI EYEHLTH & S SURG P EPILATION FORCEPS ONLY OPHTH 77480 [facility] 1 FOR HUONG XM&EVAL EYEHLTH & INTERMEDI SURG P ATE ESTAB PT ECG 21459 [facility] ROUTINE 1 PRIMARY ALVAREZ ECG CARE DECALVO W/LEAST CENTER MAR 12 LDS TRCG ONLY W/O I&R CORRECTIO 93009 [place] [facility] N 0 FOR HUONG TRICHIASI EYEHLTH & S SURG P EPILATION FORCEPS ONLY OPHTH 22660 [facility] MEDICAL 0 FOR HUONG XM&EVAL EYEHLTH & INTERMEDI SURG P ATE ESTAB PT BLOOD 52236 LABORATOR LABORATOR COUNT 0 Y & Y & COMPLETE BIODIAGNO BIODIAGNO AUTOMATED STICS STICS CYANOCOBA 97065 LABORATOR LABORATOR EDD 0 Y & Y & VITAMIN BIODIAGNO BIODIAGNO B-12 STICS STICS ORGANIC 04454 LABORATOR LABORATOR ACID 1 0 Y & Y & QUANTITAT BIODIAGNO BIODIAGNO BALAJI STICS STICS COMPREHEN 60202 LABORATOR LABORATOR SIVE 0 Y & Y & METABOLIC BIODIAGNO BIODIAG[place] [address] LABORATOR LABORATOR FOLIC 0 Y & Y & ACID BIODIAGNO BIODIAG[place] [address] LABORATOR LABORATOR [id number] Y & Y & SFERRIN BIODIAGNO BIODIAGNO STICS STICS CORRECTIO 65569 [facility] BOONE N 0 FOR HUONG TRICHIASI EYEHLTH & S SURG P EPILATION FORCEPS ONLY OPHTH 44492 [place] [facility] BOONE MEDICAL 0 FOR HUONG XM&EVAL EYEHLTH & INTERMEDI SURG P ATE ESTAB PT OPHTH 52776 [facility] BOONE MEDICAL 0 FOR HUONG XM&EVAL EYEHLTH & INTERMEDI SURG P ATE ESTAB PT BLOOD 07086 [facility] COUNT 0 W W COMPLETE [facility] AUTO&AUTO MEDICAL MEDICAL DIFRNTL CENTER CENTER WBC BILIRUBIN 64408 [facility] DIRECT 0 W W [facility] CENTER COLLECTIO 24577 [facility] N VENOUS 0 W W BLOOD [facility] [place] CENTER CENTER COMPREHEN 63238 [facility] SIVE 0 W W METABOLIC [facility] CENTER CORRECTIO 09154 [place] [facility] [place] 0 FOR , MARTHA Benitez TRICHIASI EYEHLTH & S SURG PSC EPILATION FORCEPS ONLY OPHTH 20327 [facility] BOONE MEDICAL 0 FOR MARTHA XM&EVAL EYEHLTH & INTERMEDI SURG PSC ATE ESTAB PT OPHTH 46265 [facility] BOONE MEDICAL 0 FOR , MARTHA L XM&EVAL EYEHLTH & INTERMEDI SURG PSC ATE ESTAB PT INJECTION 27699 [facility] VALLEY HIWOT R CATHJ L HEART VENTR/L ATR ANGIOGRAP H PLCMT G0269 [facility] OCCL DEVC 0 W W REGIONAL REGIONAL SAMUEL/ART MEDICAL MEDICAL POST [facility] SURG/INTR VNL PROC INJECTION J3010 [facility] FENTANYL 0 W W [place] REGIONAL REGIONAL 0.1 MG [facility] UNCLASSIF J3490 [facility] IED DRUGS 0 W W REGIONAL REGIONAL [facility] INJECTION J2250 [facility] 0 W W [place] REGIONAL REGIONAL HCL PER MEDICAL MEDICAL 1 MG [facility] INJECTION J2001 [facility]OWV[facility] 0 W W LIDOCAINE REGIONAL REGIONAL HCL [facility] INTRAVENO [facility] US INFUS 10 MG ECG 89967 KRISTAWSHAE MEADOWVIE ROUTINE 0 W W ECG REGIONAL REGIONAL W/LEAST MEDICAL MEDICAL 12 [facility] TRCG ONLY W/O I&R LOCM Q9967 MEAWSHAE VELASCOWVIE [phone] W W MG/ML [facility] IODINE [facility]ICAL [facility]ICAL CONCENTRA [facility] TION PER ML I SI&R 07689 [place] JAYCE, F/NJX PX 0 [facility] C-CATHJ VENTR&/AT R ANGRPH L HRT 55473 [facility] ZATION HEART RETROGRAD E BRACHIAL PERQ I SI&R 07874 [facility], [facility]/NJX PX 0 [facility] C-CATHJ PULM&/[place] [address] [facility], C-CATHJ 0 [facility] F/SLCTV C HEART ANGRPH COLLECTIO 03988 JAY VELASCOWVIE N VENOUS 0 W W BLOOD REGIONAL REGIONAL VENIPUNCT [facility]ICAL [facility] BLOOD 39063 JAY VELASCOWVIE COUNT 0 W W COMPLETE REGIONAL REGIONAL AUTO&AUTO MEDICAL MEDICAL DIFRNTL [facility] WBC BASIC 93280 AJY THOMPSON METABOLIC 0 W W PANEL [facility]IONAL REGIONAL [facility] CENTER MYOCARDIA 48933 Emmanuel MERINO SPECT 0 [facility] MULTIPLE HEART STUDIES CV STRS 70950 [facility], TST 0 [facility] XERS&/OR HEART RX CONT ECG W/O I&R CV STRS 05199 JAY THOMPSON TST 0 W W XERS&/OR REGIONAL REGIONAL RX CONT MEDICAL MEDICAL ECG TRCG CENTER CENTER ONLY TECHNETIU A9502 JAY Kasper TC-99M 0 W W TETROFOSM REGIONAL REGIONAL IN DX PER MEDICAL MEDICAL STUDY CENTER CENTER DOSE CV STRS 93711 [facility], TST 0 [facility] HI[facility] R XERS&/OR HEART RX CONT ECG I&R ONLY OPHTH 31829 [facility] 0 FOR , MARTHA L XM&EVAL EYEHLTH & INTERMEDI SURG PSC ATE ESTAB PT CV STRS 88515 [facility] TST 0 [facility] YOLIS XERS&/OR HEART RX CONT ECG W/O I&R CV STRS 37576 JAY THOMPSON TST 0 W W XERS&/OR REGIONAL REGIONAL RX CONT MEDICAL MEDICAL ECG TRCG CENTER CENTER ONLY ECHO 14590 [place] ANNE TTHRC R-T 0 VALLEY N, 2D HEART RAGHURAMA W/WOM-MOD N E COMPL SPEC&COLR D CV STRS 32207 [facility] TST 0 [facility] [place] XERS&/OR HEART RX CONT ECG I&R ONLY 01303 LABORATOR LABORATOR HYDROXY 0 Y & Y & INCLUDES BIODIAGNO BIODIAGNO FRACTIONS STICS STICS IF PERFORMED CYANOCOBA 89516 LABORATOR LABORATOR EDD 0 Y & Y & VITAMIN BIODIAGNO BIODIAGNO B-12 [place] [address] LABORATOR LABORATOR FERRITIN 0 Y & Y & BIODIAGNO BIODIAGNO STICS STICS BLOOD 33504 LABORATOR LABORATOR COUNT 0 Y & Y & COMPLETE BIODIAGNO BIODIAGNO AUTO&AUTO STICS STICS DIFRNTL WBC IRON 51019 LABORATOR LABORATOR BINDING 0 Y & Y & CAPACITY BIODIAGNO BIODIAGNO STICS STICS COLLECTIO 14553 [facility] N VENOUS 0 PRIMARY [facility] BLOOD [facility]ARE [facility]AL[facility], [facility] K[facility] URE OPAL V COMPREHEN 51705 LABORATOR LABORATOR SIVE 0 Y & Y & METABOLIC BIODIAGNO [place] [address] LABORATOR LABORATOR FOLIC 0 Y & Y & ACID BIODIAGNO [place] [address] LABORATOR LABORATOR IRON 0 Y & Y & BIODIAGNO BIODIAGNO STICS STICS OPHTH [address] [facility] 0 FOR , MARTHA Benitez XM&EVAL EYEHLTH & INTERMEDI SURG PSC ATE ESTAB PT CORRECTIO 07677 [facility] 0 FOR , MARTHA Benitez TRICHIASI EYEHLTH & S SURG PSC EPILATION FORCEPS ONLY ECG 21816 [facility]OUT[facility] 0 PRIMARY ALVAREZ ECG CARE DECALVO, W[facility] 12 LDS OPAL V TRCG ONLY W/O I&R OPHTH 42933 [facility] 0 FOR , MARTHA Benitez XM&EVAL EYEHLTH & INTERMEDI SURG PSC ATE ESTAB PT CORRECTIO 55989 [facility] 0 FOR , MARTHA Benitez TRICHIASI EYEHLTH & S SURG PSC EPILATION FORCEPS ONLY OPHTH 08798 [facility] 9 FOR , MARTHA Benitez XM&EVAL EYEHLTH & INTERMEDI SURG PSC ATE ESTAB PT CORRECTIO 36790 [facility] 9 FOR , MARTHA Benitez TRICHIASI EYEHLTH & S SURG PSC EPILATION FORCEPS ONLY BLOOD 48951 [facility] COUNT 9 [facility] COMPLETE AUTO&AUTO DIFRNTL WBC COMPREHEN 74265 [facility] SIVE 9 [facility] METABOLIC PANEL COLLECTIO 74448 [facility] N VENOUS 9 PRIMARY ALVAREZ BLOOD CARE DECALVO, [facility] OPAL V CORRECTIO 39677 [facility] 9 MARTHA TELLES Emmanuel NASHI EYEHLTH & S SURG PSC EPILATION FORCEPS ONLY OPHTH 16326 [facility] 9 FOR , MARTHA Benitez XM&EVAL EYEHLTH & INTERMEDI SURG PSC ATE ESTAB PT OPHTH 45809 [facility] 9 FOR , MARTHA Benitez XM&EVAL EYEHLTH & INTERMEDI SURG PSC ATE ESTAB PT RADIOLOGI 53455 [facility] EXAM 9 EIDER, CHEST 2 RADIOLOGY MIKAYLA VIEWS K FRONTAL&L ASSOCIATE ATERAL S PSC URNLS DIP 12684 [facility] 9 [facility] STICK/TAB [place] [address] [facility] HAPTOGLOB 9 [facility] [place] [address] [facility] THYROID 9 [facility] STIMULATI NG HORMONE TSH COMPREHEN 09250 [facility] SIVE 9 [facility] METABOLIC PANEL 25 16993 [facility] HYDROXY 9 [facility] INCLUDES FRACTIONS IF PERFORMED CYANOCOBA 77837 [facility] EDD 9 [facility] VITAMIN B-12 [place] [address] [facility] FOLIC 9 [facility] ACID RBC PROSTATE [id number] [facility] CANCER 9 [facility] SCREENING ; PSA TEST BLOOD 67457 [facility] COUNT 9 [facility] COMPLETE AUTO&AUTO DIFRNTL WBC HEPATIC 33164 [facility] FUNCTION 9 W W [facility] BLOOD 92359 [facility] COUNT 9 W W [facility] AUTO&AUTO [facility] DIFRNTL [facility] WBC COLLECTIO 58869 [facility] N VENOUS 9 W W BLOOD [facility] CORRECTIO 72013 [facility] 9 FOR MARTHA TRICHIASI EYEHLTH & S SURG PSC EPILATION FORCEPS ONLY OPHTH 21711 [facility] 9 MARTHA TELLES XM&EVAL EYEHLTH & [place] [address] PATHOLOGY PATHOLOGY SURG 9 & & PATHOLOGY CYTOLOGY CYTOLOGY LAB [facility] GROSS&HERB ROSCOPIC EXAM EXCISION 67107 SANDY SCHULSTAD MALIGNANT 9 , KIM , KIM LESION S/N/H/F/G 0.6-1.0 CM BLOOD 26485 [facility] COUNT 9 [facility] COMPLETE AUTO&AUTO DIFRNTL WBC COLLECTIO 62700 [facility] N VENOUS 9 [facility] BLOOD VENIPUNCT URE OPHTH 73039 [facility] 9 FOR MARTHA XM&EVAL EYEHLTH & INTERMEDI SURG PSC ATE ESTAB PT HEPATIC 48709 [facility] FUNCTION 9 [facility] PANEL BLOOD 06684 [facility] COUNT 9 [facility]IC [employer] COMPLETE [employer] HOLDING AUTO&AUTO DIFRNTL WBC PROTEIN 44874 [facility] XCPT 9 AMERIC AMERIC REFRACTOM HOLDING HOLDING ETRY SERUM PLASMA/WH L BLD ALBUMIN 49776 [facility] SERUM 9 AMERIC AMERIC PLASMA/WH HOLDING HOLDING OLE BLOOD SODIUM 17228 [facility] SERUM 9 AMERIC AMERIC PLASMA OR HOLDING HOLDING WHOLE BLOOD BILIRUBIN 41272 [facility] TOTAL 9 [employer] [place] [address] [facility] PHOSPHATA 9 AMERIC AMERIC [place] [address] UNIVERSIT TERESA, LIP 9 Y ASSOC SPENCER P DERMATOLO GY COL-CHR/M 30763 [facility] S NONDRUG 9 AMERIC AMERIC ANALYTE HOLDING HOLDING LEV QUAL/ROYA EA SPEC CHLORIDE 32633 [facility] BLD 9 [employer]IC [employer] HOLDING POTASSIUM 98410 [facility] SERUM 9 AMERIC AMERIC PLASMA/WH HOLDING HOLDING OLE BLOOD CREATININ 57152 [facility] E BLOOD 9 AMERIC AMERIC HOLDING HOLDING TRANSFERA 07-23-200 97702 [facility] SE 9 AMERIC AMERIC ASPARTATE HOLDING HOLDING AMINO AST SGOT CALCIUM 60197 [facility] TOTAL 9 AMERIC AMERIC HOLDING HOLDING GLUC-6-PH 02767 [facility] OSPHATE 9 AMERIC AMERIC DEHYDROGE HOLDING [place] [address] [facility] UREA 9 AMERIC AMERIC NITROGEN HOLDING HOLDING QUANTITAT BAL[place] COLLECTIO 06837 [facility] N VENOUS 9 AMERIC AMERIC BLOOD HOLDING HOLDING VENIPUNCT URE BX SKIN 79894 UNIVERSIT TERESA, SUBCUTANE 9 Y ASSOC SPENCER P OUS&/MUCO DERMATOLO US GY MEMBRANE 1 LESION GLUCOSE 53066 [facility] QUANTITAT 9 AMERIC AMERIC BALAJI BLOOD HOLDING HOLDING XCPT REAGENT STRIP OPHTH 60376 [facility] 9 FOR , MARTHA Benitez XM&EVAL EYEHLTH & INTERMEDI SURG [facility] ATE ESTAB PT CT THORAX 78748 ALMENA DEE, 9 IGLESIA Zabala/CONTRAS RADIOLOGY T MATERIAL ASSOCIATE S [facility] 3D 49077 ALMENA DEE, RENDERING 9 IGLESIA Zabala/INTERP RADIOLOGY & POSTPROCE ASSOCIATE SS S [facility] SUPERVISI ON MESH C1781 [facility] 9 W W [facility] LAPAROSCO 92600 MEAW[facility] PY SURG 9 W W RPR REGIONAL REGIONAL INITIAL [facility] INGUINAL [place] HERNIA RINGERS J7120 MEAW[facility] LACTATE 9 W W INFUSION REGIONAL REGIONAL UP TO MEDICAL MEDICAL 1000 CC CENTER CENTER ANESTHESI 57849 [facility] HERNIA 9 [facility] , CELESTE REPAIR ANESTHESI LOWER A [facility] ABDOMEN NOS INJECTION J0690 [facility] MEADOW[facility]IE 9 W W CEFAZOLIN REGIONAL REGIONAL SODIUM MEDICAL MEDICAL 500 MG [facility] INJECTION J2250 [facility] MEADOWVIE 9 W W MIDAZOLAM REGIONAL REGIONAL HCL PER MEDICAL MEDICAL 1 MG [facility] INJECTION J3010 MEADOCRISTOBAL MEADOW[facility]IE FENTANYL 9 W W CITRATE REGIONAL REGIONAL 0.[address] [facility] C[facility] BLOOD 88283 ME[facility] MEADOW[facility]IE COUNT 9 W W COMPLETE REGIONAL REGIONAL AUTO&AUTO MEDICAL MEDICAL DIFRNTL CENTER CENTER WBC URNLS DIP 45467 [facility] 9 W W STICK/TAB REGIONAL REGIONAL LET MEDICAL MEDICAL REAGENT CENTER CENTER AUTO MICROSCOP Y RADIOLOGI 10831 [facility] C EXAM 9 W W CHEST 2 REGIONAL REGIONAL VIEWS [facility] MEDICAL FRONTAL&L CENTER CENTER ATERAL COLLECTIO 89717 [facility] N VENOUS 9 W W BLOOD REGIONAL REGIONAL VENIPUNCT MEDICAL MEDICAL URE CENTER CENTER COMPREHEN 33475 [facility]OW[facility] SIVE 9 W W METABOLIC [facility] PANEL [facility] CENTER ECG 54495 [facility] ROUTINE 9 W W ECG REGIONAL REGIONAL W/LEAST MEDICAL MEDICAL 12 LDS [facility] TRCG ONLY W/O I&R OPH BMTRY 92264 [facility] 9 FOR , MARTHA Benitez ECHOGRAPY EYEHLTH & A-SCAN SURG PSC IO LENS PWR JEFF OPHTH 24523 [facility] 9 FOR , MARTHA Bentiez XM&EVAL EYEHLTH & COMPRHNSV SURG PSC ESTAB PT 1/> OPHTH 62551 [facility] 8 FOR , MARTHA Benitez XM&EVAL EYEHLTH & INTERMEDI SURG PSC ATE ESTAB PT OPHTH 93631 [facility] 8 FOR , MARTHA Benitez XM&EVAL EYEHLTH & COMPRE SURG PSC NEW PT 1/> VST OPHTH 33032 RUDI GRIJALVA, MEDICAL 8 MURALI CARRION XM&EVAL COMPRHNSV ESTAB PT 1/> FUNDUS 01456 RUDI GRIJALVA, PHOTOGRAP 8 MURALI CARRION HY W/INTERPR ETATION & REPORT Encounters Encounter Start End Date Code Location Performer Type Date OFFICE 75973 [facility] 5 [facility] T [facility] 15 CENTER MINUTES OFFICE 14922 [facility] 5 5 [facility]IMARY T VISIT [facility]ARE 15 CENTER MINUTES OFFICE 55776 SHEYLA CARRION OUTPATIEN 4 4 ABR ABR T VISIT 15 MINUTES [facility]OSP[facility] - 4 4 W [facility] 59701 [facility] 4 4 PRIMARY T VISIT CARE 25 CENTER MINUTES OFFICE 30346 [facility] 4 4 PRIMARY T VISIT CARE 25 CENTER MINUTES [facility]OS[facility] 3 3 W OUTPATIEN [facility] T MEDICAL OFFICE 43072 [facility] 3 3 PRIMARY T VISIT CARE 15 CENTER MINUTES OFFICE 75039 [facility] 2 2 PRIMARY T VISIT CARE 25 CENTER MINUTES OFFICE 04346 [facility] 2 2 PRIMARY T VISIT CARE 25 CENTER MINUTES OFFICE 82075 [facility] 1 1 PRIMARY T VISIT CARE 10 CENTER MINUTES OFFICE 48661 [facility] OUTPATIEN 1 1 PRIMARY ALVAREZ T VISIT CARE DECALVO 15 CENTER MAR MINUTES OFFICE 51869 [facility] 1 1 PRIMARY T VISIT CARE 15 CENTER MINUTES OFFICE 21249 [facility] 1 1 PRIMARY T VISIT CARE 15 CENTER MINUTES OFFICE 38515 [facility] 1 1 PRIMARY T VISIT CARE 15 CENTER MINUTES [facility] 92938 [place] [facility] 1 1 CHEPACHET N RAG T [facility] 45 HEART MINUTES OFFICE 17191 [facility] OUT[facility] 1 1 PRIMARY T VISIT CARE 15 CENTER MINUTES OFFICE 17246 [facility] 0 0 PRIMARY T VISIT CARE 15 CENTER MINUTES [facility] - [facility] 0 W [facility] OFF[facility] 08683 [facility] OUTPATI[facility] 0 0 [facility] T VISIT HEART 25 MINUTES HOSPITAL [facility] - 0 0 W [facility] 0 0 W [facility] MEADOW[facility] - 0 0 W [facility] OFFICE 34428 [facility] 0 0 PRIMARY T VISIT CARE 15 [facility]ENTERINC MINUTES CLINIC, [facility] FREE 0 0 [facility], [facility] FREE 0 [facility] OFFICE 36891 [facility] 0 0 PRIMARY T VISIT CARE 15 [facility]ENTERINC MINUTES CLINIC, [facility] FREE 0 0 [facility] OFFICE 07619 [facility] 0 0 PRIMARY T VISIT CARE 15 CENTERINC MINUTES OFFICE 04622 [facility] 9 9 PRIMARY T VISIT CARE 15 [facility]ENTERINC MINUTES CLINIC[facility] FREE 9 9 [facility] FREE 9 9 [facility] OFFICE 73219 [facility] 9 9 PRIMARY T VISIT CARE 10 [facility]ENTERINC MINUTES CLIN[facility], [facility] FREE 9 9 [facility] OFFICE 89627 [facility] 9 9 PRIMARY T VISIT 5 CARE MINUTES [facility] H[facility] MEADOWVIE - 9 9 W OUT[facility]AC[facility], [facility] FREE 9 9 PRIMARY [facility]AND[facility] OFFICE 31635 [facility] 9 9 PRIMARY T VISIT CARE 25 [facility] MEADOWVIE - 9 9 W [facility] OFFICE 11428 SANDY DELGADO CONSULTAT 9 9 , KIM ALVAREZ ION NEW/ESTAB PATIENT 40 MIN OFFICE 37354 [facility], CONSULTAT 9 9 Y ASSOC SPENCER Miller ION DERMATOLO NEW/ESTAB GY PATIENT 40 MIN [facility]OSPITAL [facility] - 9 9 W [facility] MEADOWSHAE - 9 9 W [facility], [facility] FREE 9 9 PRIMARY STANDING CARE [facility] OFFICE 22052 [facility] OUTPATIEN [facility] 9 PRIMARY T [facility] 20 CARE [facility] OFFICE 47062 [facility] OUTPATIEN 9 9 MARTHA TELLES T VISIT EYEHLTH & 15 SURG PSC MINUTES OFFICE 28162 RUDI GRIJALVA OUTPATIEN 8 8 MURALI CARRION T VISIT 10 MINUTES
--- OUTSIDE RECORDS SUMMARY | 2016-07-19 21:25 | External Medical Summary Rpt ---
Author Author , Organization [employer] Address Unknown Phone Unavailable Care Team Providers Care Foam Molder Name Role Phone RUDI MURALI, Unavailable Unavailable [...] ABR SHEYLA ABR, SHEYLA Unavailable Unavailable [facility], [facility] & Un[facility] Unavailable [facility], [place] [facility] Un[facility]available [facility], [facility], Unavailable Unavailable [facility] & Unavailable [facility]available [facility] & Unavailable Unavailable [facility] Unavailable [facility]available [facility]available Unavailable [facility] JAYCE RIVERA Unavailable Unavailable [facility], Unavailable Unavailable [facility], Unavailable Unavailable DANIELLE DÍAZ [facility] Unavailable Unavailable MEDICAL, [facility] Unavailable Unavailable [facility], [facility], Unavailable Unavailable [facility] HEART PATHOLOGY & CYTOLOGY Unavailable Unavailable LAB, [...] DOS Provider Status 2449 UNSPECIFIED 04-05-2014 [facility] ISM 4279 UNSPECIFIED 04-05-2014 [facility] PRIMARY DYSRHYTHMIA CARE CENTER 27809 OTHER 04-05-2014 [facility] MALAISE AND PRIMARY FATIGUE CARE CENTER 3688 OTHER 02-23-2014 [facility] SPECIFIED DIAGNOSTICS VISUAL DISTURBANCE S 83356 PAIN IN OR 02-23-2014 [facility] AROUND EYE DIAGNOSTICS 99148 URINARY 02-23-2014 [facility] FREQUENCY DIAGNOSTICS 28618 NONSPECIFIC 02-23-2014 [facility] ABNORMAL DIAGNOSTICS UNSPEC CV FUNCTION STUDY V7791 SCREENING 02-23-2014 [facility] FOR LIPOID DIAGNOSTICS DISORDERS 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 86260 JL MUCOUS 02-22-2014 [facility] PEMPHIGOID [place] W/OCULAR INVLV 4149 UNSPECIFIED 10-15-2013 [facility] CHRONIC ISCHEMIC HEART DISEASE 50342 OTHER 10-15-2013 [facility] SPECIFIED CARDIAC DYSRHYTHMIA S 2859 UNSPECIFIED 10-07-2013 [facility] 4139 OTHER AND 10-07-2013 [facility] UNSPECIFIED HEART ANGINA PECTORIS 44913 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 [facility] CORONARY ARTERY 4280 CONGESTIVE 10-07-2013 [facility] HEART HEART FAILURE UNSPECIFIED 53742 CHEST PAIN 10-07-2013 [facility] UNSPECIFIED REGIONAL MEDICAL 47433 OTH 10-07-2013 [facility] NONSPECIFIC HEART ABNORM CV SYSTEM FUNCTION STUDY 49944 SHORTNESS 09-17-2013 [facility] 34968 NONSPECIFIC 09-17-2013 [facility] ABNORMAL HEART ELECTROCARD IOGRAM 76978 ANEMIA OF 09-07-2013 [facility] OTHER [facility]AG[facility]STICS CHRONIC DISEASE 7804 DIZZINESS 09-07-2013 [facility] PRIMARY GIDDINESS CARE CENTER 7840 HEADACHE 09-07-2013 [facility] V5869 LONG-TERM 09-07-2013 [facility] (CURRENT) DIAGNOSTICS USE OF OTHER MEDICATIONS V431 LENS 04-24-2013 [place] [facility]PL[facility] BY [facility] OTHER INSTITUTE MEANS 2469 UNSPECIFIED 03-05-2013 [facility] DISORDER DIAGNOSTICS OF THYROID 2689 UNSPECIFIED 03-05-2013 [facility] VITAMIN D DIAGNOSTICS DEFICIENCY 48853 UNSPECIFIED 03-05-2013 [facility] DISORDER DIAGNOSTICS OF EYE 3804 IMPACTED 03-05-2013 [facility] CERUMEN DIAGNOSTICS 65226 DISORDER OF 03-05-2013 [facility] BONE AND DIAGNOSTICS CARTILAGE UNSPECIFIED V851 BODY MASS 03-05-2013 [facility] INDEX DIAGNOSTICS BETWEEN 19-24 ADULT 90695 NUCLEAR 09-18-2012 [facility] 3669 UNSPECIFIED 09-18-2012 [facility] 44222 UNSPECIFIED 09-10-2012 [facility] INTERSTITIA L KERATITIS 24664 SCARRING OF 09-10-2012 [facility] CONJUNCTIVA 06588 UNSPECIFIED 09-10-2012 [facility] [place] ABNORMAL PUPILLARY FUNCTION 2662 OTHER 01-30-2012 [facility] B-COMPLEX PRIMARY DEFICIENCIE CARE CENTER S 2669 UNSPECIFIED 01-30-2012 [facility] VITAMIN B DIAGNOSTICS DEFICIENCY 5225 PERIAPICAL 06-18-2011 [facility] [place] ABSCESS PRIMARY WITHOUT CARE CENTER SINUS 10596 UNSPECIFIED 06-18-2011 [facility] PRIMARY OSTEOPOROSI CARE [...] & LENIN BIODIAGNOST ICS V8281 SPECIAL 03-27-2010 [facility] SCREENING REGIONAL FOR MEDICAL OSTEOPOROSI S 7851 PALPITATION 02-13-2010 [facility] S HEART 18286 BLEPHAROPHI 01-09-2010 [place] [facility] P 2800 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 BI[facility]NOST SECONDARY ICS TO BLOOD LOSS 4011 ESSENTIAL 06-13-2009 [facility] HYPERTENSIO [facility]IONAL N, [facility] 2692 UNSPECIFIED 04-05-2009 [facility] VITAMIN PRIMARY DEFICIENCY CARE CENTERINC 73322 UNSPECIFIED 03-07-2009 [place] [facility] [place]NE[place] [facility] & OPACITY SURG PSC V7644 SPECIAL 02-23-2009 [facility] SCREENING PRIMARY MALIGNANT CARE NEOPLASM OF CENTERINC PROSTATE V7651 SPECIAL 02-23-2009 [facility] SCREENING PRIMARY FOR CARE MALIGNANT CENTERINC NEOPLASMS COLON 4940 BRONCHIECTA 10-26-2008 [facility] SIS WITHOUT RADIOLOGY ACUTE ASSOCIATES EXACERBATIO PSC N 7862 COUGH 10-26-2008 [facility] 2324 CARCINOMA 10-01-2008 PATHOLOGY & IN SITU OF CYTOLOGY SCALP AND LAB SKIN OF NECK 1733 OTH MALIG 09-30-2008 [facility], NEOPLASM KIM SKIN OTH & UNS PARTS FACE V1083 PERSONAL 09-30-2008 [facility], HISTORY KIM OTHER MALIGNANT NEOPLASM SKIN 1734 OTHER 09-02-2008 [place] MALIGNANT [facility] NEOPLASM OF DERMATOLOGY SCALP & SKIN OF NECK 6944 PEMPHIGUS 09-02-2008 [facility] 6948 OTHER 09-02-2008 [place] SPECIFIED ASSOC BULLOUS DERMATOLOGY DERMATOSIS 4928 OTHER 07-09-2008 [facility] EMPHYSEMA RADIOLOGY ASSOCIATES PSC 57469 OTHER 07-09-2008 [facility] DISEASES OF RADIOLOGY LUNG NOT ASSOCIATES ELSEWHERE PSC CLASSIFIED 7856 ENLARGEMENT 07-09-2008 [facility] OF LYMPH RADIOLOGY NODES ASSOCIATES PSC 88566 ING VANITA 06-22-2008 [place] W/O MENTION H ANESTHESIA OBST/GANGRE PSC N UNILAT/UNSP EC 496 CHRONIC 06-21-2008 [facility] AIRWAY RADIOLOG[facility] OBSTRUCTION ASSOCIATES NEC PSC 54778 ING VANITA 06-21-2008 [facility] W/O REGIONAL OBST/GANGRE MEDICAL N RECUR CENTER UNILAT/UNS V1201 PERSONAL 06-21-2008 [facility] HISTORY OF REGIONAL TUBERCULOSI MEDICAL S ACME V7284 UNSPECIFIED 06-21-2008 [facility] PRE-OPERATI MEDICAL VE CENTER EXAMINATION 5539 VANITA UNS 06-14-2008 [facility] SITE ABD PRIMARY CAV W/O CARE MENTION CENTERINC OBST/GANGRE N 23653 UNSPECIFIED 06-09-2007 [facility] PTOSIS OF MURALI EYELID 12534 DERMATOCHAL 06-09-2007 [facility] ASIS MURALI 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 Procedures Procedure DOS Code Location Performer Comment BLOOD 59728 [facility] MAE KATHY COUNT 5 PRIMARY HEMOGLOBI CARE N CENTER ECG 80922 [facility] K[facility] ROUTINE 5 PRIMARY ECG CARE W/LEAST CENTER 12 LDS TRCG ONLY W/O I&[place] [address] [facility] PROSTATE 5 DIAGNOSTI DIAGNOSTI SPECIFIC CS CS ANTIGEN TOTAL BLOOD 80073 [facility] COUNT 5 DIAGNOSTI DIAGNOSTI COMPLETE CS CS AUTO&[place] [address] [facility] THYROID 5 DIAGNOSTI DIAGNOSTI STIMULATI CS CS NG HORMONE TSH COLLECTIO 94771 [facility] N VENOUS 5 DIAGNOSTI DIAGNOSTI BLOOD CS CS VENIPUNCT URE COMPREHEN 16197 [facility] SIVE 5 DIAGNOSTI DIAGNOSTI METABOLIC CS CS PANEL OPHTH 25213 [facility] 5 EYE HUONG XM&EVAL INSTITUTE INTERMEDI ATE ESTAB PT OPHTH 29918 [facility] 4 EYE HUONG XM&EVAL INSTITUTE INTERMEDI ATE ESTAB PT CORRECTIO 94988 [facility] 4 EYE HUONG TRICHIASI [place] D[place] [address]452 [facility] PATRICIA&/OR 4 [facility] PRESS HEART C/IRWIN RSRV TRANG 1ST VSL INTRDUCR/ C1766 [facility] SHEATH 4 W W GUID [facility] INTRACARD MEDICAL MEDICAL EP NOT PEEL-AWAY R & L HRT 52263 [facility] CATH 4 [facility] WINJX HRT HEART ART& L VENTR IMG ARTERIAL 29194 [facility] PUNCTURE 4 W W [facility] BLOOD MEDICAL MEDICAL DX GUIDE C1769 [facility] WIRE 4 W W [facility] MEDICAL MEDICAL CATHETER C1887 [facility] GUIDING 4 W W [facility] MEDICAL MEDICAL BLOOD 73143 [facility] COUNT 4 W W COMPLETE [facility] AUTO&AUTO MEDICAL MEDICAL DIFRNTL WBC ECHO 26884 [facility] TTHRC R-T 4 W W 2D [facility] W/WOM-MOD MEDICAL MEDICAL E COMPL SPEC&COLR D TECHNETIU A9502 JAY THOMPSON M TC-99M 4 W W TETROFOSM [facility] IN DX PER MEDICAL MEDICAL STUDY DOSE MYOCARDIA 99608 [facility] L SPECT 4 [place] [address] [facility] MAGNESIUM 4 W W REGIONAL REGIONAL MEDICAL MEDICAL CV STRS 31085 [facility] TST 4 W W XERS&/OR REGIONAL REGIONAL RX CONT MEDICAL MEDICAL ECG TRCG ONLY COLLECTIO 72070 [facility] N VENOUS 4 W W BLOOD REGIONAL REGIONAL VENIPUNCT MEDICAL MEDICAL URE COMPREHEN 27980 [facility] SIVE 4 W W METABOLIC REGIONAL [place] [address] [facility]OW[facility] FREE 4 W W THYROXINE [place] [address] [facility] THYROID 4 W W STIMULATI REGIONAL REGIONAL NG MEDICAL MEDICAL HORMONE TSH CV STRS 93257 [facility] TST 4 VALLEY YOLIS XERS&/OR HEART RX CONT ECG I&[place] [address] [facility] THYROID 4 DIAGNOSTI DIAGNOSTI STIMULATI CS CS NG HORMONE TSH COLLECTIO 47708 [facility] N VENOUS 4 DIAGNOSTI DIAGNOSTI BLOOD CS CS VENIPUNCT URE COMPREHEN 53509 [facility] SIVE 4 DIAGNOSTI DIAGNOSTI METABOLIC CS CS PANEL ECG 75013 [facility] ROUTINE 4 PRIMARY Y BRE ECG CARE W/LEAST CENTER 12 LDS TRCG ONLY W/O I&[place] [address] [facility] PROSTATE 4 DIAGNOSTI DIAGNOSTI SPECIFIC CS CS ANTIGEN TOTAL BLOOD 21055 [facility] COUNT 4 DIAGNOSTI DIAGNOSTI COMPLETE CS CS AUTO&AUTO DIFRNTL WBC OPHTH 61221 [facility] 4 EYE HUONG XM&EVAL INSTITUTE INTERMEDI ATE ESTAB PT CORRECTIO 44275 [facility] N 4 EYE HUONG TRICHIASI INSTITUTE S EPILATION FORCEPS ONLY CORRECTIO 30814 [facility] N 4 EYE HUONG TRICHIASI INSTITUTE S EPILATION FORCEPS ONLY OPHTH 97592 [facility] 4 EYE HUONG XM&EVAL INSTITUTE INTERMEDI ATE ESTAB PT REMOVAL 24525 [facility] IMPACTED 4 PRIMARY PRIMARY CERUMEN CARE CARE INSTRUMEN [place] [address] [facility] FREE 4 DIAGNOSTI [place]AG[place] [address] [facility] THYROID 4 DIAGNOSTI DIAGNOSTI STIMULATI CS CS NG HORMONE TSH COLLECTIO 14796 [facility] N VENOUS 4 DIAGNOSTI DIAGNOSTI BLOOD CS CS VENIPUNCT URE COMPREHEN 97318 [facility] SIVE 4 DIAGNOSTI DIAGNOSTI METABOLIC CS CS PANEL OPHTH 64233 [facility] 3 EYE HUONG &EVAL [place] INTERMEDI ATE ESTAB PT CORRECTIO 26393 [facility] N 3 EYE HUONG TRICHIASI INSTITUTE S EPILATION FORCEPS ONLY OPHTH 55782 [facility] 3 EYE HUONG &EVAL [place] INTERMEDI ATE ESTAB PT CORRECTIO 16570 [facility] N 3 EYE HUONG TRICHIASI INSTITUTE S EPILATION FORCEPS ONLY INJECTION J2001 [facility] 3 W W LIDOCAINE REGIONAL REGIONAL HCL MEDICAL MEDICAL INTRAVENO US INFUS 10 MG CATARACT 17057 [facility] REMOVAL 3 W W INSERTION REGIONAL REGIONAL OF LENS MEDICAL MEDICAL OPH BMTRY 99270 [facility] 3 EYE [facility]ONG ECHOGRAPY INSTITUTE A-SCAN IO LENS PWR JEFF OPHTH 13916 [facility] 3 GLORIA GLORIA &EVAL INTERMEDI ATE NEW PT CORRECTIO 80885 [facility] N 3 EYE HUONG TRICHIASI INSTITUTE S EPILATION FORCEPS ONLY CORRECTIO 36114 [facility] N 3 EYE HUONG TRICHIASI INSTITUTE S EPILATION FORCEPS ONLY OPHTH 28060 [facility] 3 EYE HUONG &EVAL [place] [address] [facility] FERRITIN 2 DIAGNOSTI DIAGNOSTI CS CS BLOOD 07014 [facility] COUNT 2 DIAGNOSTI DIAGNOSTI RETICULOC CS CS YTE AUTOMATED CYANOCOBA 70191 [facility] EDD 2 DIAGNOSTI DIAGNOSTI VITAMIN CS CS B-12 25 16430 [facility] HYDROXY 2 DIAGNOSTI DIAGNOSTI INCLUDES [place] [address] [facility] FOLIC 2 DIAGNOSTI DIAGNOSTI ACID CS CS SERUM COLLECTIO 30596 [facility] N VENOUS 2 DIAGNOSTI DIAGNOSTI [place] [address] [facility] IRON 2 DIAGNOSTI DIAGNOSTI CS CS COMPREHEN 68308 [facility] SIVE 2 DIAGNOSTI DIAGNOSTI METABOLIC CS CS PANEL BLOOD 52728 [facility] COUNT 2 DIAGNOSTI DIAGNOSTI COMPLETE CS CS AUTO&AUTO DIFRNTL WBC IRON 54333 [facility] BINDING 2 DIAGNOSTI DIAGNOSTI CAPACITY CS CS CORRECTIO 76738 [place] [facility] BOONE N 2 FOR HUONG TRICHIASI EYEHLTH & S SURG P EPILATION FORCEPS ONLY OPHTH 05131 [facility] 2 FOR HUONG XM&EVAL EYEHLTH & INTERMEDI SURG P ATE ESTAB PT OPHTH 59575 [facility] 2 FOR HUONG XM&EVAL EYEHLTH & INTERMEDI SURG P ATE ESTAB PT CORRECTIO 64723 [place] [facility] BOONE N 2 FOR HUONG TRICHIASI EYEHLTH & S SUR[place] [address] [facility] THYROID 2 [facility] [facility] NG HORMONE TSH CYANOCOBA 92317 LABORATOR LABORATOR EDD 2 Y & Y & VITAMIN BIODIAGNO BIODIAGNO B-12 STICS STICS 25 14837 LABORATOR LABORATOR HYDROXY 2 Y & Y & INCLUDES BIODIAGNO BIODIAGNO FRACTIONS [place] [address] LABORATOR LABORATOR THYROID 2 Y & Y & STIMULATI BIODIAGNO BIODIAGNO NG STICS STICS HORMONE TSH COLLECTIO 10210 LABORATOR LABORATOR N VENOUS 2 Y & Y & BLOOD BIODIAGNO BIODIAGNO VENIPUNCT STICS STICS URE COMPREHEN 79395 LABORATOR LABORATOR SIVE 2 Y & Y & METABOLIC BIODIAGNO [place]ODIAG[place] [address] LABORATOR LABORATOR FREE 2 Y & Y & THYROXINE BIODIAGNO BIODIAGNO STICS STICS LIPID 56256 LABORATOR LABORATOR PANEL 2 Y & Y & BIODIAGNO BIODIAGNO STICS STICS BLOOD 04063 LABORATOR LABORATOR COUNT 2 Y & Y & COMPLETE BIODIAGNO BIODIAGNO AUTO&AUTO [place] [address] LABORATOR LABORATOR TRIIODOTH 2 Y & Y & YRONINE BIODIAGNO BIODIAGNO T3 FREE STICS STICS OPHTH 64155 [facility] 2 FOR HUONG XM&EVAL EYEHLTH & INTERMEDI SURG P ATE ESTAB PT CORRECTIO 10802 [facility] N 2 FOR HUONG TRICHIASI EYEHLTH & S SURG P EPILATION FORCEPS ONLY OPHTH 97434 [facility] 2 FOR HUONG XM&EVAL EYEHLTH & INTERMEDI SURG P ATE ESTAB PT CORRECTIO 57893 [facility] N 2 FOR HUONG TRICHIASI EYEHLTH & S SUR[place] [address] LABORATOR LABORATOR SURG 1 Y & Y & PATHOLOGY BIODIAGNO BIODIAGNO STICS STICS GROSS&HERB ROSCOPIC EXAM OPHTH 37113 [facility] 1 FOR HUONG XM&EVAL EYEHLTH & INTERMEDI SURG P ATE ESTAB PT COLLECTIO 70552 [facility] N VENOUS 1 PRIMARY ALVAREZ BLOOD CARE DECALVO VENIPUNCT CENTER MAR URE OPHTH 01382 [facility] 1 FOR HUONG XM&EVAL EYEHLTH & INTERMEDI SURG P ATE ESTAB PT CORRECTIO 20795 [facility] N 1 FOR HUONG TRICHIASI EYEHLTH & S SURG P EPILATION FORCEPS ONLY CORRECTIO 53695 [facility] N 1 FOR HUONG TRICHIASI EYEHLTH & S SURG P EPILATION FORCEPS ONLY OPHTH 90776 [facility] 1 FOR HUONG XM&EVAL EYEHLTH & INTERMEDI SURG P ATE ESTAB PT BLOOD 62034 LABORATOR LABORATOR COUNT 1 Y & Y & COMPLETE BIODIAGNO BIODIAGNO AUTO&AUTO STICS STICS DIFRNTL WBC LIPID 47579 LABORATOR LABORATOR PANEL 1 Y & Y & BIODIAGNO BIODIAGNO STICS STICS LIPOPROTE 62323 LABORATOR LABORATOR IN DIRECT 1 Y & Y & BIODIAGNO BIODIAGNO MEASUREME STICS STICS NT LDL CHOLESTER OL IRON 35235 LABORATOR LABORATOR BINDING 1 Y & Y & CAPACITY BIODIAGNO BIODIAGNO STICS STICS ORGANIC 11408 LABORATOR LABORATOR ACID 1 1 Y & Y & QUANTITAT BIODIAGNO BIODIAGNO BALAJI STICS STICS CYANOCOBA 24595 LABORATOR LABORATOR EDD 1 Y & Y & VITAMIN BIODIAGNO BIODIAGNO B-12 STICS STICS 25 15841 LABORATOR LABORATOR HYDROXY 1 Y & Y & INCLUDES BIODIAGNO BIODIAGNO FRACTIONS [place] [address] LABORATOR LABORATOR PROSTATE 1 Y & Y & SPECIFIC BIODIAGNO BIODIAGNO ANTIGEN STICS STICS TOTAL COLLECTIO 46901 [facility] N VENOUS 1 PRIMARY ALVAREZ BLOOD CARE DECALVO VENIPUNCT CENTER MAR URE COMPREHEN 22542 LABORATOR LABORATOR SIVE 1 Y & Y & METABOLIC BIODIAGNO BIODIAG[place] [address] LABORATOR LABORATOR FOLIC 1 Y & Y & ACID BIODIAGNO BI[place]IAG[place] [address] LABORATOR LABORATOR IRON 1 Y & Y & BIODIAGNO BIODIAGNO STICS STICS DXA BONE 61522 [facility] DENSITY 1 EIDER SHAE STUDY 1/> RADIOLOGY SITES ASSOCIAT AXIAL SKEL CORRECTIO [address] [facility] BOONE N 1 FOR HUONG TRICHIASI EYEHLTH & S SURG P EPILATION FORCEPS ONLY OPHTH 99496 [place] [facility] 1 FOR HUONG XM&EVAL EYEHLTH & INTERMEDI SURG P ATE ESTAB PT ECG 79504 [facility] DEL ROUTINE 1 PRIMARY ALVAREZ ECG CARE DECALVO W/LEAST CENTER MAR 12 LDS TRCG ONLY W/O I&R CORRECTIO 36332 [place] [facility] [facility] [place] 0 FOR HUONG TRICHIASI EYEHLTH & S SURG P EPILATION FORCEPS ONLY OPHTH 77782 [facility] MEDICAL 0 FOR HUONG XM&EVAL EYEHLTH & INTERMEDI SURG P ATE ESTAB PT BLOOD 86801 LABORATOR LABORATOR COUNT 0 Y & Y & COMPLETE BIODIAGNO BIODIAGNO AUTOMATED STICS STICS CYANOCOBA 54728 LABORATOR LABORATOR EDD 0 Y & Y & VITAMIN BIODIAGNO BIODIAGNO B-12 STICS STICS ORGANIC 37576 LABORATOR LABORATOR ACID 1 0 Y & Y & QUANTITAT BIODIAGNO BIODIAGNO BALAJI STICS STICS COMPREHEN 70264 LABORATOR LABORATOR SIVE 0 Y & Y & METABOLIC BIODIAGNO BIODIAG[place] [address] LABORATOR LABORATOR FOLIC 0 Y & Y & ACID BIODIAGNO BIODIAG[place] [address] LABORATOR LABORATOR M0060GEYK 0 Y & Y & SFERRIN BIODIAGNO BIODIAGNO STICS STICS CORRECTIO [address] [facility] BOONE N 0 FOR HUONG TRICHIASI EYEHLTH & S SURG P EPILATION FORCEPS ONLY OPHTH 78577 [place] [facility] BOONE MEDICAL 0 FOR HUONG XM&EVAL EYEHLTH & INTERMEDI SURG P ATE ESTAB PT OPHTH 37680 [place] [facility] BOONE MEDICAL 0 FOR HUONG XM&EVAL EYEHLTH & INTERMEDI SURG P ATE ESTAB PT BLOOD 71828 [facility] COUNT 0 W W COMPLETE [facility] AUTO&AUTO MEDICAL MEDICAL DIFRNTL CENTER CENTER WBC BILIRUBIN 12449 [facility] DIRECT 0 W W [facility] CENTER COLLECTIO 81207 [facility] N VENOUS 0 W W BLOOD [facility] C[facility] CENTER COMPREHEN 23243 [facility] SIVE 0 W W METABOLIC [facility] CENTER CORRECTIO 79082 [place] 0 FOR , MARTHA Ben[employer]z TRICHIASI EYEHLTH & S SURG PSC EPILATION FORCEPS ONLY OPHTH 72093 [place] [facility] BOONE MEDICAL 0 FOR MARTHA XM&EVAL EYEHLTH & INTERMEDI SURG PSC ATE ESTAB PT OPHTH 89014 [place] [facility] BOONE MEDICAL 0 FOR , MARTHA L XM&EVAL EYEHLTH & INTERMEDI SURG PSC ATE ESTAB PT INJECTION 40978 [facility] 0 [facility] CATHJ L HEART VENTR/L ATR ANGIOGRAP H PLCMT G0269 [facility] OCCL DEVC 0 W W REGIONAL REGIONAL SAMUEL/ART MEDICAL MEDICAL POST [facility] SURG/INTR VNL PROC INJECTION J3010 [facility] FENTANYL 0 W W CITRATE REGIONAL REGIONAL 0.1 MG [facility] [place] UNCLASSIF J3490 [facility] IED DRUGS 0 W W REGIONAL REGIONAL [facility] C[facility] INJECTION J2250 [facility] 0 W W MIDAZOLAM REGIONAL REGIONAL HCL PER MEDICAL MEDICAL 1 MG [facility] INJECTION J2001 [facility] 0 W W LIDOCAINE REGIONAL REGIONAL HCL [facility] INTRAVENO [facility] US INFUS 10 MG ECG 38587 [facility] ROUTINE 0 W W ECG REGIONAL REGIONAL W/LEAST MEDICAL MEDICAL 12 [facility] TRCG ONLY W/O I&R LOCM Q9967 [facility] VELASCOW[facility] [phone] 0 W W MG/ML REGIONAL [facility] IODINE MEDICAL MEDICAL CONCENTRA [facility] TION PER ML I SI&R 27087 [place] [facility], F/NJX PX 0 [facility] DURING HEART C-CATHJ VENTR&/AT R ANGRPH L HRT 96319 [facility] CATHETERI 0 [facility] ZATION HEART RETROGRAD E BRACHIAL PERQ I SI&R 25635 [facility], F/NJX PX 0 [facility] DURING HEART C-CATHJ PULM&/[place] [address] [facility] C-CATHJ 0 [facility] F/SLCTV C HEART ANGRPH COLLECTIO 72854 [facility] N VENOUS 0 W W BLOOD REGIONAL REGIONAL VENIPUNCT MEDICAL [facility] SYSTEM BLOOD 89210 [facility] COUNT 0 W W COMPLETE REGIONAL REGIONAL AUTO&AUTO MEDICAL MEDICAL DIFRNTL [facility] WBC BASIC 40707 [facility] THOMPSON METABOLIC 0 W W PANEL REGIONAL REGIONAL [facility] TOTAL CENTER CENTER MYOCARDIA 32081 Emmanuel MERINO SPECT 0 [facility] HIWOT R MULTIPLE HEART STUDIES CV STRS 18216 [facility], TST 0 [facility] HIWOT R XERS&/OR HEART RX CONT ECG W/O I&R CV STRS 03661 JAY THOMPSON TST 0 W W XERS&/OR REGIONAL REGIONAL RX CONT MEDICAL MEDICAL ECG TRCG CENTER CENTER ONLY TECHNETIU A9502 JAY Kasper TC-99M 0 W W TETROFOSM REGIONAL REGIONAL IN DX PER MEDICAL MEDICAL STUDY CENTER CENTER DOSE CV STRS 44726 [facility], TST 0 VALLEY HIWOT R XERS&/OR HEART RX CONT ECG I&R ONLY OPHTH 63315 [facility] 0 FOR , MARTHA L XM&EVAL EYEHLTH & INTERMEDI SURG PSC ATE ESTAB PT CV STRS 91659 [facility] TST 0 VALLEY YOLIS XERS&/OR HEART RX CONT ECG W/O I&R CV STRS 33255 JAY THOMPSON TST 0 W W XERS&/OR REGIONAL REGIONAL RX CONT MEDICAL MEDICAL ECG TRCG CENTER CENTER ONLY ECHO 25200 [place] [facility] R-T 0 VALLEY N, 2D HEART RAGHURAMA W/WOM-MOD N E COMPL SPEC&COLR D CV STRS 42643 [facility] TST 0 VALLEY YOLIS XERS&/OR HEART RX CONT ECG I&R ONLY 27457 LABORATOR LABORATOR HYDROXY 0 Y & Y & INCLUDES BIODIAGNO BIODIAGNO FRACTIONS STICS STICS IF PERFORMED CYANOCOBA 03939 LABORATOR LABORATOR EDD 0 Y & Y & VITAMIN BIODIAGNO BIODIAGNO B-[address] [place] [address] LABORATOR LABORATOR FERRITIN 0 Y & Y & BIODIAGNO BIODIAGNO STICS STICS BLOOD 16327 LABORATOR LABORATOR COUNT 0 Y & Y & COMPLETE BIODIAGNO BIODIAGNO AUTO&AUTO STICS STICS DIFRNTL WBC IRON 24389 LABORATOR LABORATOR BINDING 0 Y & Y & CAPACITY BIODIAGNO BIODIAGNO STICS STICS COLLECTIO 72138 [facility] N VENOUS 0 PRIMARY [facility] BLOOD [facility], [facility] OPAL V COMPREHEN 24782 LABORATOR LABORATOR SIVE 0 Y & Y & METABOLIC BIODIAGNO BI[place] [address] LABORATOR LABORATOR FOLIC 0 Y & Y & ACID BIODIAGNO [place] [address] LABORATOR LABORATOR IRON 0 Y & Y & BIODIAGNO BIODIAGNO STICS STICS OPHTH 31763 [facility] 0 FOR , MARTHA Benitez XM&EVAL EYEHLTH & INTERMEDI SURG PSC ATE ESTAB PT CORRECTIO 39885 [facility] N 0 FOR , MARTHA Benitez TRICHIASI EYEHLTH & S SURG PSC EPILATION FORCEPS ONLY ECG 92070 [facility] DEL ROUTINE 0 PRIMARY ALVAREZ ECG CARE [facility]ALVO, [facility] LDS OPAL V TRCG ONLY W/O I&R OPHTH 02074 [facility] 0 FOR , MARTHA Benitez XM&EVAL EYEHLTH & INTERMEDI SURG PSC ATE ESTAB PT CORRECTIO 99324 [facility] N 0 FOR , MARTHA Benitez TRICHIASI EYEHLTH & S SURG PSC EPILATION FORCEPS ONLY OPHTH 19335 [facility] 9 FOR , MARTHA Benitez XM&EVAL EYEHLTH & INTERMEDI SURG PSC ATE ESTAB PT CORRECTIO 56900 [facility] N 9 FOR , MARTHA Benitez TRICHIASI EYEHLTH & S SURG PSC EPILATION FORCEPS ONLY BLOOD 80580 [facility] COUNT 9 [facility] COMPLETE AUTO&AUTO DIFRNTL WBC COMPREHEN 74025 [facility] SIVE 9 [facility] METABOLIC PANEL COLLECTIO 57035 [facility] N VENOUS 9 PRIMARY ALV[facility]Z BLOOD CARE DECALVO, [facility] KYA URE OPAL V CORRECTIO 56005 [facility] CENTER 9 MARTHA TELLES Emmanuel NASHI EYEHLTH & S SURG PSC EPILATION FORCEPS ONLY OPHTH 85968 [facility] 9 FOR , MARTHA Benitez XM&EVAL EYEHLTH & INTERMEDI SURG PSC ATE ESTAB PT OPHTH 93462 [facility] 9 FOR , MARTHA Benitez XM&EVAL EYEHLTH & INTERMEDI SURG PSC ATE ESTAB PT RADIOLOGI 72599 [facility] EXAM 9 EIDER, CHEST 2 RADIOLOGY MIKAYLA VIEWS K FRONTAL&L ASSOCIATE ATERAL S PSC URNLS DIP 24527 [facility] 9 [facility] STICK/TAB [place] [address] [facility] HAPTOGLOB 9 [facility] [place] [address] [facility] THYROID 9 [facility] STIMULATI NG HORMONE TSH COMPREHEN 83587 [facility] SIVE 9 [facility] METABOLIC PANEL 25 48891 [facility] HYDROXY 9 [facility] INCLUDES FRACTIONS IF PERFORMED CYANOCOBA 42412 [facility] EDD 9 [facility] VITAMIN B-12 [place] [address] [facility] FOLIC 9 [facility] ACID RBC PROSTATE [id number] [facility] CANCER 9 [facility] SCREENING ; PSA TEST BLOOD 35821 [facility] COUNT 9 [facility] COMPLETE AUTO&AUTO DIFRNTL WBC HEPATIC 65589 [facility] FUNCTION 9 W W [facility] BLOOD 24208 [facility] MEADOW[facility]IE COUNT 9 W W [facility] AUTO&AUTO [facility] DIFRNTL [facility] WBC COLLECTIO 94679 [facility] MEADOWVIE N VENOUS 9 W W BLOOD [facility] CENTER CORRECTIO 63973 [facility] 9 FOR MARTHA TRICHIASI EYEHLTH & S SURG PSC EPILATION FORCEPS ONLY OPHTH 77216 [facility] 9 MARTHA TELLES XM&EVAL EYEHLTH & INTERMEDI [place] [address] PATHOLOGY PATHOLOGY SURG 9 & & PATHOLOGY CYTOLOGY CYTOLOGY LAB LAB GROSS&HERB ROSCOPIC EXAM EXCISION 47894 SANDY SCHULSTAD MALIGNANT 9 , KIM , KIM LESION S/N/H/F/G 0.6-1.0 CM BLOOD 75340 [facility] COUNT 9 [facility] COMPLETE AUTO&AUTO DIFRNTL WBC COLLECTIO 98307 [facility] N VENOUS 9 [facility] BLOOD VENIPUNCT URE OPHTH 88253 [facility] 9 FOR MARTHA XM&EVAL EYEHLTH & INTERMEDI SURG PSC ATE ESTAB PT HEPATIC 09303 [facility] FUNCTION 9 [facility] PANEL BLOOD 45425 [facility] COUNT 9 [employer]IC [employer] COMPLETE [employer] HOLDING AUTO&AUTO DIFRNTL WBC PROTEIN 28299 [facility] XCPT 9 AMERIC AMERIC REFRACTOM HOLDING HOLDING ETRY SERUM PLASMA/WH L BLD ALBUMIN 69240 [facility] SERUM 9 AMERIC AMERIC PLASMA/WH HOLDING HOLDING OLE BLOOD SODIUM 63350 [facility] SERUM 9 AMERIC AMERIC PLASMA OR HOLDING HOLDING WHOLE BLOOD BILIRUBIN 78420 [facility] TOTAL 9 [employer] [place] [address] [facility] PHOSPHATA 9 AMERIC AMERIC [place] [address] UNIVERSIT TERESA, LIP 9 Y ASSOC SPENCER P DERMATOLO GY COL-CHR/M 93138 [facility] S NONDRUG 9 AMERIC AMERIC ANALYTE HOLDING HOLDING LEV QUAL/ROYA EA SPEC CHLORIDE 36600 [facility] BLD 9 AMERIC AMERIC HOLDING HOLDING POTASSIUM 92523 [facility] SERUM 9 AMERIC AMERIC PLASMA/WH HOLDING HOLDING OLE BLOOD CREATININ 89434 [facility] E BLOOD 9 AMERIC AMERIC HOLDING HOLDING TRANSFERA 07-23-200 82426 [facility] SE 9 AMERIC AMERIC ASPARTATE HOLDING HOLDING AMINO AST SGOT CALCIUM 41587 [facility] TOTAL 9 AMERIC AMERIC HOLDING HOLDING GLUC-6-PH 38425 [facility] OSPHATE 9 AMERIC AMERIC DEHYDROGE HOLDING [place] [address] LAB [facility] LAB ZION UREA 9 AMERIC AMERIC NITROGEN HOLDING HOLDING QUANTITAT [place] COLLECTIO 45135 [facility] LAB ZION N VENOUS 9 AMERIC AMERIC BLOOD HOLDING HOLDING VENIPUNCT URE BX SKIN 53908 UNIVERSIT TERESA, SUBCUTANE 9 Y ASSOC SPENCER P OUS&/MUCO DERMATOLO US GY MEMBRANE 1 LESION GLUCOSE 38516 [facility] LAB ZION QUANTITAT 9 AMERIC AMERIC [place] BLOOD 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 INGUINAL ACME CENTER HERNIA RINGERS J7120 MEAWVIE MEADOWV[facility] LACTATE 9 W W INFUSION REGIONAL REGIONAL UP TO MEDICAL MEDICAL 1000 CC CENTER CENTER ANESTHESI 05855 [facility] BRAUGHTON A HERNIA 9 [facility] , CELESTE REPAIR ANESTHESI LOWER A [facility] ABDOMEN NOS INJECTION J0690 [facility] MEADOWVIE 9 W W CEFAZOLIN REGIONAL REGIONAL SODIUM MEDICAL MEDICAL 500 MG AC[facility] CENTER INJECTION J2250 [facility] MEADOWVIE 9 W W MIDAZOLAM REGIONAL REGIONAL HCL PER MEDICAL MEDICAL 1 MG [facility] INJECTION J3010 MEADOCRISTOBAL MEADOWVIE FENTANYL 9 W W CITRATE REGIONAL REGIONAL 0.[address] [facility] CENTER BLOOD 57955 MEADOWVIE MEADOWVIE COUNT 9 W W COMPLETE REGIONAL REGIONAL AUTO&AUTO MEDICAL MEDICAL DIFRNTL CENTER CENTER WBC URNLS DIP 13425 [facility] MEADOW[facility]IE 9 W W STICK/TAB REGIONAL REGIONAL LET MEDICAL MEDICAL REAGENT CENTER CENTER AUTO MICROSCOP Y RADIOLOGI 76784 [facility] MEADOW[facility] C EXAM 9 W W CHEST 2 REGIONAL REGIONAL VIEWS DCH [facility] MEDICAL FRONTAL&L CENTER CENTER ATERAL COLLECTIO 11019 [facility] MEADOWVIE N VENOUS 9 W W BLOOD REGIONAL REGIONAL VENIPUNCT MEDICAL MEDICAL URE CENTER CENTER COMPREHEN 25351 ME[facility] MEADOWVIE SIVE 9 W W METABOLIC REGIONAL [facility] PANEL MEDICAL MEDICAL CENTER CENTER ECG 92934 MEAD[facility]IE MEADOW[facility]IE ROUTINE 9 W W ECG REGIONAL REGIONAL W/LEAST MEDICAL MEDICAL 12 LDS [facility] TRCG ONLY W/O I&R OPH BMTRY 87167 [facility] 9 FOR , MARTHA Benitez ECHOGRAPY EYEHLTH & A-SCAN SURG PSC IO LENS PWR JEFF OPHTH 71679 [facility] 9 FOR , MARTHA Benitez XM&EVAL EYEHLTH & COMPRHNSV SURG PSC ESTAB PT 1/> OPHTH 32997 [facility] 8 FOR , MARTHA Benitez XM&EVAL EYEHLTH & INTERMEDI SURG PSC ATE ESTAB PT OPHTH 88877 [facility] 8 FOR , MARTHA Benitez XM&EVAL EYEHLTH & COMPRE SURG PSC NEW PT 1/> VST OPHTH 52509 RUDI GRIJALVA, MEDICAL 8 MURALI CARRION XM&EVAL COMPRHNSV ESTAB PT 1/> FUNDUS 12965 RUDI GRIJALVA, PHOTOGRAP 8 MURALI CARRION HY W/INTERPR ETATION & REPORT Encounters Encounter Start End Date Code Location Performer Type Date OFFICE 74917 [facility] 5 5 [facility] T VIS[facility] 15 CENTER MINUTES OFFICE 66421 [facility] 5 5 [facility]IMARY T VISIT CARE 15 CENTER MINUTES OFFICE 75328 SHE[facility] CARRION OUTPATIEN 4 4 ABR ABR T VISIT 15 MINUTES HOSPITAL [facility] - 4 4 W OUTPATIEN [facility] T [facility] 63476 [facility] 4 4 PRIMARY T VISIT CARE 25 CENTER MINUTES OFFICE 76514 [facility] 4 4 PRIMARY T VISIT CARE 25 CENTER MINUTES HOSPITAL ME[facility] - 3 3 W OUTPATIEN [facility] T MEDICAL OFFICE 21901 [facility] 3 3 PRIMARY T VISIT CARE 15 CENTER MINUTES OFFICE 89494 [facility] 2 2 PRIMARY T VISIT CARE 25 CENTER MINUTES OFFICE 68680 [facility] 2 2 PRIMARY T VISIT CARE 25 CENTER MINUTES OFFICE 70781 [facility] 1 1 PRIMARY T VISIT CARE 10 CENTER MINUTES OFFICE 15001 [facility] DEL OUTPATIEN 1 1 PRIMARY ALVAREZ T VISIT CARE DECALVO 15 CENTER MAR MINUTES OFFICE 01050 [facility] 1 1 PRIMARY T VISIT CARE 15 CENTER MINUTES OFFICE 96523 [facility] 1 1 PRIMARY T VISIT CARE 15 CENTER MINUTES OFFICE 43296 [facility] 1 1 PRIMARY T VISIT CARE 15 CENTER MINUTES HOSPITAL [facility] - 1 1 [facility] 49964 [place] [facility] 1 1 TAMMS N RAG T [facility] 45 HEART MINUTES OFFICE 59205 [facility] OUTPATI[facility] 1 1 PRIMARY T VISIT CARE 15 CENTER MINUTES OFFICE 99689 [facility] 0 0 PRIMARY T VISIT CARE 15 CENTER MINUTES [facility]OSPITAL [facility] - 0 0 [facility] - 0 0 W [facility] OFFICE 12870 [facility] OUTPATIEN 0 0 [facility] T VISIT HEART 25 MINUTES HOSPITAL ME[facility]OW[facility] - 0 0 W [facility] MEADOWVIE - 0 0 W [facility] MEADOWVIE - 0 0 W [facility] OFFICE 46943 [facility] 0 0 PRIMARY T VISIT CARE 15 CENTERINC MINUTES CLINIC[facility] FREE 0 0 PRIMARY STANDING CARE [facility] CLINIC, [facility] [place] FREE 0 0 PRIMARY STANDING [facility]ARE [facility] OFFICE 80634 [facility] OUTPATI[facility] 0 0 PRIMARY T VISIT CARE 15 CENTERINC MINUTES CLINIC, [facility] FREE 0 0 PRIMARY STANDING CARE [facility] OFFICE 25212 [facility] OUTPATIEN 0 0 PRIMARY T VISIT CARE 15 CENTERINC MINUTES OFFICE 39537 [facility] OUTPATI[facility] 9 9 PRIMARY T VISIT CARE 15 CENTERINC MINUTES CLINIC[facility] FREE 9 9 PRIMARY STANDING CARE [facility] [place] FREE 9 9 [facility] OFFICE 76054 [facility] OUTPATIEN 9 9 PRIMARY T VISIT CARE 10 CENTERINC MINUTES CL[facility], [facility] FREE 9 9 PRIMARY STANDING [facility]ARE [facility] OFFICE 26569 [facility] OUT[facility]IEN 9 9 PRIMARY T VISIT 5 CARE MINUTES [facility] HOSPITAL ME[facility]OW[facility]IE - 9 9 [facility] [place] FREE 9 9 [facility]IMARY [facility]AND[facility]ARE [facility] OFFICE 14342 [facility] [place] OUTPATIEN 9 9 PRIMARY T VISIT CARE 25 [facility] MEADOWVIE - 9 9 [facility] 94774 SANDY DELGADO CONSULTAT 9 9 , KIM ALVAREZ ION NEW/ESTAB PATIENT 40 MIN OFFICE 84316 [facility], CONSULTAT 9 9 Y ASSOC SPENCER Miller ION DERMATOLO NEW/ESTAB GY PATIENT 40 MIN HOSPITAL ME[facility] - 9 9 W [facility] MEADOWSHAE - 9 9 W [facility] CLINIC, [facility] FREE 9 9 PRIMARY STANDING CARE [facility] OFFICE 63127 [facility] OUTPATIEN 9 9 PRIMARY T [facility] 20 CARE [facility] OFF[facility] [address] [facility] OUTPATIEN 9 9 MARTHA TELLES T VISIT EYEHLTH & 15 SURG PSC MINUTES OFFICE 54778 RUDI GRIJALVA OUTPATIEN 8 8 MURALI CARRION T VISIT 10 MINUTES
--- OUTSIDE RECORDS SUMMARY | 2016-07-19 21:26 | External Medical Summary Rpt ---
Author Author , Organization [employer] Address Unknown Phone Unavailable Purpose Continuity of Care Document - 10-30-2011 through 2016 Immunization Name Date Route CVX Reacti Commen Provid Is Given on t er Refuse d Influe Histor FQ11 No nza, 2011 ical P-Free Inform ation - Source Unspec ified
--- OUTSIDE RECORDS SUMMARY | 2016-07-19 21:26 | External Medical Summary Rpt ---
Author Author [employer] Luis, [employer] Organization [employer] Address Unknown Phone Unavailable Results CBC W Auto Differential panel in Blood Observa Value Referen Units Interpr Notes Date tion ce etation Range Basophils 0 - 0.2 K/MM3 Normal No Jul 19 inform2016 8:24 [#/volume on in PM ] in source Blood by data Automated count Basophils 0.1 - 2.0 % Normal No Jul 19 informati 2016 8:24 leukocyte on in PM s in source Blood by data Automated count Eosinophi 0.0 - 0.4 K/mm3 Normal No Jul 19 ls informati 2016 8:24 [#/volume on in PM ] in source Blood by data Automated count Eosinophi 0.1 - % Normal No Jul 19 ls/100 12.0 informati 2016 8:24 leukocyte on in PM s in source Blood by data Automated count Granulocy 1.3 - 8.0 K/mm3 Normal No Jul 19 fadumo informati 2016 8:24 [#/volume on in PM ] in source Blood by data Automated count Granulocy 37.0 - % Normal No Jul 19 fadumo/100 80.0 informati 2016 8:24 leukocyte on in PM s in source Blood by data Automated count Hematocri 42.0 - % Low No Jul 19 t [Volume 52.0 informati 2016 8:24 on in PM Fraction] source of Blood data Hemoglobi 14.1 - g/dL Low Jul 19 n 18.0 2016 8:24 [Mass/vol CRITICAL PM ume] in RESULTS Blood RESU LTS CALLED TO: LISHA 07/19/162035 Ernesto,[place] nda Lymphocyt 0.7 - 4.5 K/mm3 Normal No Jul 19 es informati 2016 8:24 [#/volume on in PM ] in source Unspecifi data ed specimen by Automated count Lymphocyt 10 - 50 % Normal No Issac 8 es informati 2016 8:24 [#/volume on in PM ] in source Unspecifi data ed specimen by Automated count Erythrocy 27 - 31.2 pg Low No Jul 8 te mean inform2016 8:24 corpuscul on in PM ar source hemoglobi data n [Entitic mass] Erythrocy 31.8 - g/dl Low No Jul 8 te mean 35.4 informati 2016 8:24 corpuscul on in PM ar source hemoglobi data n concentra tion [Mass/vol ume] by Automated count Erythrocy 82.2 - fl Normal No Jul 8 te mean 97.8 informati 2016 8:24 corpuscul on in PM ar volume source [Entitic data volume] by Automated count Monocytes 0.1 - 1.0 K/mm3 Normal No Jul 8 informati 2016 8:24 [#/volume on in PM ] in source Blood by data Automated count Monocytes 1.7 - 9.3 % Normal No Issac 8 /100 informati 2017 8:24 leukocyte on in PM s in source Blood by data Automated count Platelet 7.4 - fl Normal No Jul 8 mean 10.4 informati 2016 8:24 volume on in PM [Entitic source volume] data in Blood by Automated count Platelets 142 - 424 K/mm3 Normal No Jul 8 informati 2016 8:24 [#/volume on in PM ] in source Blood data Erythrocy 4.6 - 6.2 M/mm3 Low No Jul 8 fadumo informati 2016 8:24 [#/volume on in PM ] in source Amniotic data fluid Erythrocy 11.5 - % High No Jul 8 te 17.5 informati 2016 8:24 distribut on in PM ion width source [Entitic data volume] by Automated count Leukocyte 4.8 - K/MM3 Normal No Jul 8 s 10.8 informati 2016 8:24 [#/volume on in PM ] in source Blood data
--- OUTSIDE RECORDS SUMMARY | 2016-07-19 21:26 | External Medical Summary Rpt ---
[...] Blood RESU LTS CALLED TO: LISHA 07/19/162035 Ernesto,[place] nda Lymphocyt 0.7 - 4.5 K/mm3 Normal [...]
[2016-07-19 21:49] LABS: URINE BILIRUBIN - DIPSTICK NEGATIVE (NEG); URINE BLOOD NEGATIVE (NEG)
[2016-07-19 22:17] LABS: URINE SQUAMOUS CELLS OCC #/hpf (OCC)
--- NOTE | 2016-07-19 22:45 | Emergency Room Report ---
History of Present Illness Time Seen by 2045 Presenting Problem in Triage Pt arrived:Walked Presenting Problem:REPORTS HAD EPISODE ON SATURDAY BLIND EPISODE X 3 TO 4 MINS. REPORTS NOT FEELING WELL SINCE. SEEN BY FAMILY WAS SENT FOR LAB AND CT. CT UNABLE TO DO TODAY. BROUGHT INTO ER FOR CT Onset of symptoms date/time:07/17/16/ or onset unknown for:MEDICAL HX UNKNOWN Treatment Prior to Arrival: SEEM IN [place] [facility] [employer]ER Provided by:SELF Sepsis Risk Assessment: Temp: 98.5 B/P: 116/61 MAP: 79 Pulse: 75 Resp: 18 Recent fever? N Clinical Suspician of Infection? N Mental Status: 1 - Regular (Normal Baseline) Sepsis Risk:Low Sepsis Risk Have you (or family members/close friends) recently traveled outside the [place]? N If Yes, where/when: Have you had exposure to infectious disease within the past month? N TB? Other? Specify: Source patient, RN notes reviewed, family, old records Exam Limitations no limitations Comment pt with hx of episode of visual loss lt eye on saturday for about 3-4 minutes but at baseline now - he has no chest pain or speech abn and no sensory/motor loss - he was seen by pcp today and asked to come to hospital as he has weakness Cardiac Chest Pain Chest pain indicative of cardiac No Timing/Duration this evening Severity moderate ALLERGIES Coded Allergies: No Known Allergies (07/19/16) Home Medications Reported Medications Levothyroxine Sodium (Levothyroxine) 0.025 MG NG DAILY Omeprazole (Omeprazole 20MG) 20 MG PO DAILY Metoprolol Tartrate (Metoprolol) 12.5 MG PO BID Dapsone 100 MG PO DAILY History Medical History General CAD? Yes Angina: No [place]: No Hypertension? Yes Hyperlipidemia? No CHF? No DVT? No PE? No COPD? Yes Asthma? No Anemia? No GERD? No Gastric ulcers? No GI Bleed? No Hernia? No Thyroid Problems? Yes Hypothyroidism? No CVA? No Seizures? No Diabetes? No Renal Insuffiency? No End Stage Renal Disease? No UTI? No Stones? No BPH? No GB Disease: No Nephritic Syndrome? No Asplenia? No Hepatitis? No Sickle Cell Disease? No Arthritis? No Migraines? No Cataracts? No Glaucoma? No MRSA? No HIV? No TB? No Anxiety? No Depression? No Cancer? No More? 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 Respiratory denies cough, denies shortness of breath, denies wheezing Cardiovascular denies chest pain, denies syncope Gastrointestinal denies abdominal pain, denies diarrhea, denies vomiting Genitourinary denies: dysuria, frequency, hesitancy, hematuria. Musculoskeletal denies back pain, denies joint pain, denies joint swelling, denies neck pain Skin denies rash Psychiatric/Neurological see HPI, denies seizure, weakness Physical Exam Vital Signs Vital Signs Date Time Temp Pulse Resp B/P Pulse O2 O2 Flow FiO2 Ox Delivery Rate 07/19 2233 75 18 116/61 98 07/19 2157 72 18 124/68 92 07/19 2113 72 18 110/55 92 07/19 2013 98.5 76 18 118/60 94 - WBC >12,000 or <4,000 or 10% bands? 2 or more SIRS Criteria Met? B/P:116/61 MAP:79 Creatinine >2.0? UA output<0.5ml/kg/hr for 2 hrs? Platelet count >100,000? Lactate >2.0mmol/1? INR >1.2 or PTT > than 60 sec? Evidence of Organ Dysfunction? Provider documented clinical suspician of infection? N Sepsis Criteria Count: 0 Sepsis Risk: Low Sepsis Risk General Appearance no apparent distress Eye Exam Comment old changes rt eye with midpt reactive pupil lt eye with ptosis Ear, Nose, Throat normal ENT inspection Neck non-tender, no bruit Respiratory Status No: respiratory distress. Lung Sounds bilateral: lungs clear. 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 No Results/Orders Laboratory Tests 07/19/162142: Urine Color YELLOW, Urine Appearance CLEAR, Urine pH 7.0, Ur Specific [place] <= 1.005, Urine Protein NEGATIVE, Urine Ketones NEGATIVE, Urine Blood NEGATIVE, Urine Nitrate NEGATIVE, Urine Bilirubin NEGATIVE, Urine Urobilinogen 1.0, Ur Leukocyte Esterase TRACE H, Urine RBC NONE, Urine WBC OCC, Ur Squamous Epith Cells OCC, Urine Bacteria NONE, Urine Glucose NEGATIVE 07/19/162023: Sodium 133 L, Potassium 3.7, Chloride 99, Carbon Dioxide 27, BUN 11, Creatinine 1.1, Estimated Creat Clear 48 L, Estimated GFR (MDRD) 65, Glucose 122 H, Calcium 8.4 L, Total Bilirubin 1.0, AST 34, ALT 26, Alkaline Phosphatase 98, Creatine Kinase 95, CK-MB (CK-2) Rel Index 1.1, CK and CKMB Interp 1.0, Troponin I < 0.02, Total Protein 6.7, Albumin 3.0 L, Globulin 3.7 H, Albumin/Globulin Ratio 0.8 L, WBC 6.6, RBC 3.35 L, Hgb 8.1 L, Hct 27.8 L, MCV 82.9, RDW 17.7 H, Plt Count 185, MPV 8.0, Gran % 69.9, Gran # 4.6, Lymphocytes % 21.7, Monocytes % 7.0, Eosinophils % 0.7, Basophils % 0.6, Lymphocytes # 1.4, Monocytes # 0.5, Eosinophils # 0.1, Basophils # 0.0, PUBS MCHC 28.9 L, MCH 24.0 L Current Medication Orders Sig/Lauren Start time Last Medication Dose Route Stop Time Status Admin Sodium Chloride 10 ML PRN PRN 07/19 2029 AC IV 07/20 2026 Orders Procedure Date/time Status DIET-NOTHING BY MOUTH 07/20 B Active THYROID STIMULATING HORMONE 07/20 2255 Active THYROXINE (T4) 07/20 2255 Active FOLIC ACID (FOLATE, SERUM) 07/20 2255 Active VITAMIN B12 07/20 2255 Active TYPE FOR CROSSMATCH 07/19 2252 Active RETICULOCYTE COUNT 07/19 2252 Active FERRITIN 07/19 2252 Active IRON & TIBC 07/19 2252 Active URINALYSIS/COMPLETE 07/[address] HEAD W/O CONTRAST 07/19 2030 Active 12 LEAD EKG-BESSON (INITIAL) 07/20 2027 Active ELECTROCARDIOGRAM REQUEST 07/[address] HEAD REQ 07/20 2027 Complete CHEST-AP VIEW ONLY 07/20 2027 Active IV SALINE LOCK 07/20 2027 Active CBC WITH AUTO DIFF 07/20 2027 Complete CARDIAC ENZYMES 07/20 2027 Complete CHEM 12 PROFILE 07/20 2027 Complete CM/EKG CM/maintainer central office Rhythm Normal Sinus Rhythm EKG non-spec. ST/Twave chgs XRAY/CT/US XRAY/CT/US [address] interpretation by discussed w/radiologist Time results known: 230 CT Results abnormal (no acute changes ) XRAY/CT/US 2 XRAY chest XR interpretation by reviewed by me Xray Results normal/NAD Departure Departure Time of Disposition 2253 Disposition Still a Patient Clinical Impression Primary Impression: Anemia Qualifiers: Anemia type: unspecified type Qualified Code: D64.9 - Anemia, unspecified Secondary Impressions: AMAUROSIS FUGAX Condition STABLE Referrals Carly Campo (Family) discussed with dr lito LEIGH Critical Care Critical Care No at 2304
--- OUTSIDE RECORDS SUMMARY | 2016-07-19 23:28 | External Medical Summary Rpt ---
Author Author , Organization [employer] Address Unknown Phone Unavailable Care Team Providers Care Operations Boardman Name Role Phone MURALI GRIJALVA, Unavailable Unavailable MURALI GRIJALVA, Unavailable Unavailable MARTHA VERNON, Unavailable Unavailable MARTHA SHOOK JOHN M, Unavailable Unavailable RAHEEM MITCHELL JEFFREY P, Unavailable Unavailable SPENCER MOORE MALLORY DECALVO Unavailable Unavailable MAR, MALLORY DECALVO MAR MALLORY DECALVO, Unavailable Unavailable CELY V, MALLORY DECALVO, CELY V CARMELITA CHAVEZ, MAE KATHY Unavailable Unavailable CHARITY, Unavailable Unavailable MIKAYLA Farr, CHARITY, IGLESIA FUENTES, Unavailable Unavailable IGLESIA PRICE SHEYLA ABR, SHEYLA Unavailable Unavailable ABR SHEYLA ABR, SHEYLA Unavailable Unavailable [facility], [facility] & Un[facility] Un[facility], [place] [facility] Unavailable Unavailable [facility], [facility], Unavailable Unavailable [facility] & Unavailable [facility] & Unavailable Unavailable [facility]available Unavailable [facility] JAYCE RIVERA Unavailable Unavailable [facility], Unavailable Unavailable [facility] EDUARDO, Unavailable Unavailable DANIELLE DÍAZ [facility] Unavailable Unavailable MEDICAL, [facility] Unavailable Unavailable MED[facility] CENTER, [facility], Unavailable Unavailable [facility] PATHOLOGY & CYTOLOGY Unavailable Unavailable LAB, PATHOLOGY & CYTOLOGY LAB [facility], Unavailable Unavailable [facility], Unavailable Unavailable [facility] KIM DELGADO, Unavailable Unavailable MAIKEL DELGADOL RENEE RAG, Unavailable Unavailable [facility] SANDERSON Unavailable Unavailable [facility] ENRIQUEZ Unavailable Unavailable GLORIA Purpose Continuity of Care Document - 02-21-2007 through 2016 Problems Code Diagnosis DOS Provider Status 2449 UNSPECIFIED 04-05-2014 [facility] ISM 4279 UNSPECIFIED 04-05-2014 [facility] CARDIAC [facility] DYSRHYTHMIA [facility] 72240 OTHER 04-05-2014 [facility] MALAISE AND [facility] FATIGUE [facility] 3688 OTHER 02-23-2014 [facility] VISUAL DISTURBANCE S 86913 PAIN IN OR 02-23-2014 [facility] 00804 URINARY 02-23-2014 [facility] FREQUENCY [facility] 72223 NONSPECIFIC 02-23-2014 [facility] ABNORMAL [facility] UNSPEC CV FUNCTION STUDY V7791 SCREENING 02-23-2014 [facility] LIPOID [facility] DISORDERS 15855 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 [facility] ENTROPION 83649 JL MUCOUS 02-22-2014 [facility] PEMPH[facility]OID [place] W/OCULAR INVLV 4149 UNSPECIFIED 10-15-2013 [facility] CHRONIC ISCHEMIC HEART DISEASE 78339 OTHER 10-15-2013 [facility] SPECIFIED CARDIAC DYSRHYTHMIA S 2859 UNSPECIFIED 10-07-2013 [facility] ANEMIA [facility] MEDICAL 4139 OTHER AND 10-07-2013 [facility] UNSPECIFIED HEART ANGINA PECTORIS 69844 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 [facility] ATHEROSCLER REGIONAL OSIS [place] DEE-NI' MEDICAL CORONARY ARTERY 4280 CONGESTIVE 10-07-2013 [facility] HEART HEART FAILURE UNSPECIFIED 96290 CHEST PAIN 10-07-2013 [facility] UNSPECIFIED REGIONAL MEDICAL 09092 OTH 10-07-2013 [facility] NONSPECIFIC HEART ABNORM CV SYSTEM FUNCTION STUDY 92520 SHORTNESS 09-17-2013 [facility] OF BREATH HEART 46051 NONSPECIFIC 09-17-2013 [facility] ABNORMAL HEART ELECTROCARD IOGRAM 54703 ANEMIA OF 09-07-2013 [facility] CHRONIC DISEASE 7804 DIZZINESS 09-07-2013 [facility] [place] [facility]IDDINESS [facility] 7840 HEADACHE 09-07-2013 [facility] V5869 LONG-TERM 09-07-2013 [facility] (CURRENT) [facility] USE OF OTHER MEDICATIONS V431 LENS 04-24-2013 [place] [facility] BY EYE OTHER INSTITUTE MEANS 2469 UNSPECIFIED 03-05-2013 [facility] DISORDER [facility] OF THYROID 2689 UNSPECIFIED 03-05-2013 [facility] VITAMIN D DIAGNO[facility]ICS DEFICIENCY 15755 UNSPECIFIED 03-05-2013 [facility] OF EYE 3804 IMPACTED 03-05-2013 [facility] CERUMEN [facility] 21718 DISORDER OF 03-05-2013 [facility] BONE AND DIAGNOSTICS CARTILAGE UNSPECIFIED V851 BODY MASS 03-05-2013 [facility] INDEX [facility] BETWEEN 19-24 ADULT 13253 NUCLEAR 09-18-2012 [facility] 3669 UNSPECIFIED 09-18-2012 [facility]ACT [facility] 82828 UNSPECIFIED 09-10-2012 [facility] CASTRO INTERSTITIA L KERATITIS 81583 SCARRING OF 09-10-2012 [facility] [place] CONJUNCTIVA 12340 UNSPECIFIED 09-10-2012 [facility] [place] ABNORMAL PUPILLARY FUNCTION 2662 OTHER 01-30-2012 [facility] B-COMPLEX PRIMARY DEFICIENCIE CARE CENTER S 2669 UNSPECIFIED 01-30-2012 [facility]IT[facility] B [facility]AGNO[facility] DEFICIENCY 5225 PERIAPICAL 06-18-2011 [facility] ABSCESS PRIMARY WITHOUT CARE CENTER SINUS 73636 UNSPECIFIED 06-18-2011 [facility] PRIMARY OSTEOPOROSI CARE [...] & LENIN BIODIAGNOST ICS V8281 SPECIAL 03-27-2010 [facility] SCREENING REGIONAL FOR MEDICAL OSTEOPOROSI S 7851 PALPITATION 02-13-2010 [facility] S HEART 92865 BLEPHAROPHI 01-09-2010 [place] [facility] & SURG P 2800 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 BI[facility]NOST SECONDARY ICS TO BLOOD LOSS 4011 ESSENTIAL 06-13-2009 [facility] HYPERTENSIO REGIONAL N, [facility] 2692 UNSPECIFIED 04-05-2009 [facility] VITAMIN PRIMARY DEFICIENCY CARE CENTERINC 42378 UNSPECIFIED 03-07-2009 [place] [facility] CORNEAL EYE[facility] & OPACITY SURG PSC V7644 SPECIAL 02-23-2009 [facility] SCREENING PRIMARY MALIGNANT CARE NEOPLASM OF CENTERINC PROSTATE V7651 SPECIAL 02-23-2009 [facility] SCREENING PRIMARY FOR CARE MALIGNANT CENTERINC NEOPLASMS COLON 4940 BRONCHIECTA 10-26-2008 [facility] SIS WITHOUT RADIOLOGY ACUTE ASSOCIATES EXACERBATIO PSC N 7862 COUGH 10-26-2008 [facility] 2324 CARCINOMA 10-01-2008 PATHOLOGY & IN SITU OF CYTOLOGY SCALP AND LAB SKIN OF NECK 1733 OTH MALIG 09-30-2008 [facility], NEOPLASM KIM SKIN OTH & UNS PARTS FACE V1083 PERSONAL 09-30-2008 [facility], HISTORY KIM OTHER MALIGNANT NEOPLASM SKIN 1734 OTHER 09-02-2008 [facility] MALIGNANT ASSOC NEOPLASM OF DERMATOLOGY SCALP & SKIN OF NECK 6944 PEMPHIGUS 09-02-2008 [facility] 6948 OTHER 09-02-2008 [facility] SPECIFIED ASSOC BULLOUS DERMATOLOGY DERMATOSIS 4928 OTHER 07-09-2008 [facility] EMPHYSEMA RADIOLOGY ASSOCIATES PSC 96816 OTHER 07-09-2008 [facility] DISEASES OF RADIOLOGY LUNG NOT ASSOCIATES ELSEWHERE PSC CLASSIFIED 7856 ENLARGEMENT 07-09-2008 [facility] OF LYMPH RADIOLOGY NODES ASSOCIATES PSC 74863 ING VANITA 06-22-2008 [facility] W/O MENTION H ANESTHESIA OBST/GANGRE PSC N UNILAT/UNSP EC 496 CHRONIC 06-21-2008 [facility] AIRWAY RADIOLOGY OBSTRUCTION ASSOCIATES NEC PSC 48507 ING VANITA 06-21-2008 [facility] W/O REGIONAL OBST/GANGRE MEDICAL N RECUR CENTER UNILAT/UNS V1201 PERSONAL 06-21-2008 [facility] HISTORY OF REGIONAL TUBERCULOSI MEDICAL S CENTER V7284 UNSPECIFIED 06-21-2008 [facility]AL PRE-OPERATI MEDICAL VE CENTER EXAMINATION 5539 VANITA UNS 06-14-2008 [facility] SITE ABD PRIMARY CAV W/O CARE MENTION CENTERINC OBST/GANGRE N 38451 UNSPECIFIED 06-09-2007 [facility], PTOSIS OF MURALI EYELID 10513 DERMATOCHAL 06-09-2007 [facility] ASIS MURALI 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 Procedures Procedure DOS Code Location Performer Comment ECG 31172 [facility] KATHY ROUTINE 5 PRIMARY ECG CARE W/LEAST CENTER 12 LDS TRCG ONLY W/O I&R BLOOD 76429 [facility] MAE KATHY COUNT 5 PRIMARY HEMOGLOBI CARE N CENTER BLOOD 13378 [facility] COUNT 5 DIAGNOSTI DIAGNOSTI COMPLETE CS CS AUTO&[place] [address] [facility] PROSTATE 5 DIAGNOSTI DIAGNOSTI [place] [address] [facility] THYROID 5 DIAGNOSTI DIAGNOSTI STIMULATI CS CS NG HORMONE TSH COLLECTIO 36221 [facility] N VENOUS 5 DIAGNOSTI DIAGNOSTI BLOOD CS CS VENIPUNCT URE COMPREHEN 35471 [facility] SIVE 5 DIAGNOSTI DIAGNOSTI METABOLIC CS CS PANEL OPHTH 13863 [facility] 5 EYE HUONG XM&EVAL INSTITUTE INTERMEDI ATE ESTAB PT OPHTH 11115 [facility] 4 EYE HUONG XM&EVAL INSTITUTE INTERMEDI ATE ESTAB PT CORRECTIO 48851 [facility] 4 EYE HUONG TRICHIASI INSTITUTE S EPILATION FORCEPS ONLY [place] DOP [address] [facility] PATRICIA&/OR 4 [facility] PRESS HEART C/IRWIN RSRV TRANG 1ST VSL R & L HRT 86252 [facility] CATH 4 [facility] WINJX HRT HEART ART& L VENTR IMG GUIDE C1769 [facility] WIRE 4 W W [facility] MEDICAL MEDICAL ARTERIAL 57763 [facility] PUNCTURE 4 W W WITHDRAWA [facility] L BLOOD MEDICAL MEDICAL DX INTRDUCR/ C1766 [facility] SHEATH 4 W W GUID [facility] INTRACARD MEDICAL MEDICAL EP NOT PEEL-AWAY CATHETER C1887 [facility] GUIDING 4 W W [facility] MEDICAL CV STRS 77346 [facility] TST 4 W W XERS&/OR [facility] RX CONT [place] [address] [facility] MAGNESIUM 4 W W [facility] MEDICAL MEDICAL ECHO 47589 [facility] TTHRC R-T 4 W W 2D [facility] W/WOM-MOD MEDICAL MEDICAL E COMPL SPEC&COLR D BLOOD 48301 [facility] COUNT 4 W W COMPLETE [facility] AUTO&AUTO [place] [address] [facility] THYROID 4 W W STIMULATI REGIONAL REGIONAL [place] [address] [facility] FREE 4 W W THYROXINE REGIONAL REGIONAL MEDICAL MEDICAL COMPREHEN 86966 [facility] SIVE 4 W W METABOLIC REGIONAL REGIONAL PANEL MEDICAL MEDICAL COLLECTIO 32432 [facility] V[facility]ASCOW[facility] N VENOUS 4 W W BLOOD REGIONAL REGIONAL VENIPUNCT MEDICAL MEDICAL URE MYOCARDIA 84061 [place] [facility] L SPECT 4 [facility] MULTIPLE HEART STUDIES TECHNETIU A9502 JAY THOMPOSN M TC-99M 4 W W TETROFOSM REGIONAL REGIONAL IN DX PER MEDICAL MEDICAL STUDY DOSE CV STRS 92327 [facility] TST 4 [place] XERS&/OR HEART RX CONT ECG I&R ONLY COMPREHEN 89050 [facility] SIVE 4 DIAGNOSTI DIAGNOSTI METABOLIC CS CS PANEL COLLECTIO 96884 [facility] N VENOUS 4 DIAGNOSTI DIAGNOSTI [place] [address] [facility] THYROID 4 DIAGNOSTI DIAGNOSTI STIMULATI CS CS NG HORMONE TSH BLOOD 70966 [facility] COUNT 4 DIAGNOSTI DIAGNOSTI COMPLETE CS CS AUTO&AUTO DIFRNTL WBC ECG 50733 [facility] ROUTINE 4 PRIMARY Y BRE ECG CARE W/LEAST CENTER 12 LDS TRCG ONLY W/O I&[place] [address] [facility] PROSTATE 4 DIAGNOSTI DIAGNOSTI SPECIFIC CS CS ANTIGEN TOTAL CORRECTIO 86287 [facility] N 4 EYE HUONG TRICHIASI INSTITUTE S EPILATION FORCEPS ONLY OPHTH 17189 [facility] 4 EYE HUONG XM&EVAL INSTITUTE INTERMEDI ATE ESTAB PT CORRECTIO 26035 [facility] N 4 EYE HUONG TRICHIASI INSTITUTE S EPILATION FORCEPS ONLY OPHTH 54701 [facility] 4 EYE HUONG XM&EVAL INSTITUTE INTERMEDI ATE ESTAB PT REMOVAL 84789 [facility] IMPACTED 4 PRIMARY PRIMARY CERUMEN CARE CARE INSTRUMEN CENTER CENTER TATION UNILAT COMPREHEN 33870 [facility] SIVE 4 DIAGNOSTI DIAGNOSTI METABOLIC CS CS PANEL COLLECTIO 89825 [facility] N VENOUS 4 DIAGNOSTI DIAGNOSTI [place] [address] [facility] THYROID 4 DIAGNOSTI DIAGNOSTI ST[place]ULATI [place] [address] [facility] FREE 4 DIAGNOSTI DIAGNOSTI THYROXINE CS CS OPHTH 90926 [facility] 3 EYE HUONG &EVAL INSTITUTE INTERMEDI ATE ESTAB PT CORRECTIO 40147 [facility] N 3 EYE HUONG [facility] S EPILATION FORCEPS ONLY OPHTH 36808 [facility] 3 EYE HUONG &EVAL INSTITUTE INTERMEDI ATE ESTAB PT CORRECTIO 67037 [facility] N [facility] [place] [facility] EPILATION FORCEPS ONLY INJECTION J2001 [facility] 3 W W LIDOCAINE REGIONAL REGIONAL HCL MEDICAL MEDICAL INTRAVENO US INFUS 10 MG CATARACT 25509 [facility] REMOVAL 3 W W INSERTION REGIONAL REGIONAL OF LENS MEDICAL MEDICAL OPH BMTRY 40727 [facility] 3 EYE HUONG ECHOGRAPY INSTITUTE A-SCAN IO LENS PWR JEFF OPHTH 94795 [facility] 3 GLORIA GLORIA &EVAL INTERMEDI ATE NEW PT CORRECTIO 82767 [facility] N 3 [facility] [place] [facility] S EPILATION FORCEPS ONLY CORRECTIO 82570 [facility] N 3 EYE [facility] S EPILATION FORCEPS ONLY OPHTH 72394 [facility] 3 EYE HUONG &EVAL INSTITUTE INTERMEDI ATE ESTAB PT IRON 23907 [facility] BINDING 2 DIAGNOSTI DIAGNOSTI CAPACITY CS CS BLOOD 00011 [facility] COUNT 2 DIAGNOSTI DIAGNOSTI COMPLETE CS CS AUTO&AUTO DIFRNTL WBC COMPREHEN 44653 [facility] SIVE 2 DIAGNOSTI DIAGNOST[place] [address] [facility] IRON 2 DIAGNOSTI DIAGNOSTI CS CS COLLECTIO 08070 [facility] N VENOUS 2 DIAGNOSTI DIAGNOSTI [place] [address] [facility] FOLIC 2 DIAGNOSTI DIAGNOSTI ACID CS CS SERUM 25 15053 [facility] HYDROXY 2 DIAGNOSTI DIAGNOSTI INCLUDES CS CS FRACTIONS IF PERFORMED CYANOCOBA 62286 [facility] EDD 2 DIAGNOSTI DIAGNOSTI VITAMIN CS CS B-12 BLOOD 37634 [facility] COUNT 2 DIAGNOSTI DIAGNOSTI [place] [address] [facility] FERRITIN 2 DIAGNOSTI DIAGNOSTI CS CS CORRECTIO 34560 [facility] 2 FOR HUONG TRICHIASI EYEHLTH & S SURG P EPILATION FORCEPS ONLY OPHTH 35579 [facility] 2 FOR HUONG XM&EVAL EYEHLTH & [place] [address] [facility] THYROID 2 [facility] [employer] [employer] [employer] NG HORMONE TSH CORRECTIO 51091 [facility] 2 FOR HUONG TRICHIASI EYEHLTH & S SURG P EPILATION FORCEPS ONLY OPHTH 06743 [facility] 2 FOR HUONG XM&EVAL EYEHLTH & INTERMEDI SURG P ATE ESTAB PT 25 13148 LABORATOR LABORATOR HYDROXY 2 Y & Y & INCLUDES BIODIAGNO BIODIAGNO FRACTIONS STICS STICS IF PERFORMED CYANOCOBA 44538 LABORATOR LABORATOR EDD 2 Y & Y & VITAMIN BIODIAGNO BIODIAGNO B-12 [place] [address] LABORATOR LABORATOR TRIIODOTH 2 Y & Y & YRONINE BIODIAGNO BIODIAGNO T3 FREE STICS STICS BLOOD 01366 LABORATOR LABORATOR COUNT 2 Y & Y & COMPLETE BIODIAGNO BIODIAGNO AUTO&AUTO STICS STICS DIFRNTL WBC LIPID 05862 LABORATOR LABORATOR PANEL 2 Y & Y & BIODIAG[place] [address] LABORATOR LABORATOR FREE 2 Y & Y & THYROXINE BIODIAGNO BIODIAGNO STICS STICS COMPREHEN 15418 LABORATOR LABORATOR SIVE 2 Y & Y & METABOLIC BIODIAGNO BIODIAGNO PANEL STICS STICS COLLECTIO 20488 LABORATOR LABORATOR N VENOUS 2 Y & Y & BLOOD BIODIAGNO BIODIAGNO [place] [address] LABORATOR LABORATOR THYROID 2 Y & Y & STIMULATI BIODIAGNO BIODIAGNO NG STICS STICS HORMONE TSH OPHTH 82799 [facility] 2 FOR HUONG XM&EVAL EYEHLTH & INTERMEDI SURG P ATE ESTAB PT CORRECTIO 62674 [facility] 2 FOR HUONG TRICHIASI EYEHLTH & S SURG P EPILATION FORCEPS ONLY CORRECTIO 64924 [facility] N 2 FOR HUONG TRICHIASI EYEHLTH & S SURG P EPILATION FORCEPS ONLY OPHTH 82176 [facility] 2 FOR HUONG XM&EVAL EYEHLTH & [place] [address] LABORATOR LABORATOR SURG 1 Y & Y & PATHOLOGY BIODIAGNO BIODIAGNO STICS STICS GROSS&HERB ROSCOPIC EXAM OPHTH 79003 [facility] 1 FOR HUONG XM&EVAL EYEHLTH & INTERMEDI SURG P ATE ESTAB PT COLLECTIO 65786 [facility] N VENOUS 1 PRIMARY ALVAREZ BLOOD CARE DECALVO VENIPUNCT CENTER MAR URE CORRECTIO 49049 [facility] 1 FOR HUONG TRICHIASI EYEHLTH & S SURG P EPILATION FORCEPS ONLY OPHTH 73482 [facility] 1 FOR HUONG XM&EVAL EYEHLTH & INTERMEDI SURG P ATE ESTAB PT OPHTH 60475 [facility] 1 FOR HUONG XM&EVAL EYEHLTH & INTERMEDI SURG P ATE ESTAB PT CORRECTIO 72604 [facility] 1 FOR HUONG TRICHIASI EYEHLTH & S [place] [address] LABORATOR LABORATOR PROSTATE 1 Y & Y & SPECIFIC BIODIAGNO BIODIAGNO ANTIGEN STICS STICS TOTAL 25 22943 LABORATOR LABORATOR HYDROXY 1 Y & Y & INCLUDES BIODIAGNO BIODIAGNO FRACTIONS STICS STICS IF PERFORMED CYANOCOBA 89612 LABORATOR LABORATOR EDD 1 Y & Y & VITAMIN BIODIAGNO BIODIAGNO B-12 STICS STICS IRON 80531 LABORATOR LABORATOR BINDING 1 Y & Y & CAPACITY BIODIAGNO BIODIAGNO STICS STICS LIPOPROTE 53837 LABORATOR LABORATOR IN DIRECT 1 Y & Y & BIODIAGNO BIODIAGNO MEASUREME STICS STICS NT LDL CHOLESTER OL LIPID 52713 LABORATOR LABORATOR PANEL 1 Y & Y & BIODIAGNO BIODIAGNO STICS STICS BLOOD 26246 LABORATOR LABORATOR COUNT 1 Y & Y & COMPLETE BIODIAGNO BIODIAGNO AUTO&AUTO [place] [address] LABORATOR LABORATOR IRON 1 Y & Y & BIODIAG[place] [address] LABORATOR LABORATOR FOLIC 1 Y & Y & ACID BIODIAGNO BIODIAGNO SERUM STICS STICS COMPREHEN 08166 LABORATOR LABORATOR SIVE 1 Y & Y & METABOLIC BIODIAGNO BIODIAGNO PANEL STICS STICS COLLECTIO 80305 [facility] N VENOUS 1 PRIMARY ALVAREZ BLOOD CARE DECALVO VENIPUNCT CENTER [facility] URE ORGANIC 80682 LABORATOR LABORATOR ACID 1 1 Y & Y & QUANTITAT BIODIAGNO BIODIAGNO BALAJI STICS STICS DXA BONE 19601 [facility] DENSITY 1 W W STUDY 1/> REGIONAL REGIONAL SITES MEDICAL MEDICAL AXIAL SKEL OPHTH 18023 [facility] 1 FOR HUONG XM&EVAL EYEHLTH & INTERMEDI SURG P ATE ESTAB PT CORRECTIO 33023 [facility] 1 FOR HUONG TRICHIASI EYEHLTH & S SURG P EPILATION FORCEPS ONLY ECG 45292 [facility] ROUTINE 1 PRIMARY ALVAREZ ECG CARE DECALVO W/LEAST CENTER MAR 12 LDS TRCG ONLY W/O I&R CORRECTIO 10802 [facility] N 0 FOR HUONG TRICHIASI EYEHLTH & S SURG P EPILATION FORCEPS ONLY OPHTH 93982 [facility] 0 FOR HUONG XM&EVAL EYEHLTH & INTERMEDI SURG P ATE ESTAB PT ORGANIC 94035 LABORATOR LABORATOR ACID 1 0 Y & Y & QUANTITAT BIODIAGNO BIODI[place] [address] LABORATOR LABORATOR [id number] 0 Y & Y & SFERRIN BIODIAGNO BIODIAGNO STICS STICS BLOOD 73153 LABORATOR LABORATOR COUNT 0 Y & Y & COMPLETE BIODIAGNO BIODIAG[place] [address] LABORATOR LABORATOR FOLIC 0 Y & Y & ACID BIODIAGNO BIODIAGNO SERUM STICS STICS COMPREHEN 08359 LABORATOR LABORATOR SIVE 0 Y & Y & METABOLIC BIODIAGNO BIODIAGNO PANEL STICS STICS CYANOCOBA 49165 LABORATOR LABORATOR EDD 0 Y & Y & VITAMIN BIODIAGNO BIODIAGNO B-12 STICS STICS CORRECTIO 01853 [place] [facility] N 0 FOR HUONG TRICHIASI EYEHLTH & S SURG P EPILATION FORCEPS ONLY OPHTH 72778 [facility] MEDICAL 0 FOR HUONG XM&EVAL EYEHLTH & INTERMEDI SURG P ATE ESTAB [place] OPHTH [address] [place] [facility] MEDICAL 0 FOR HUONG XM&EVAL EYEHLTH & INTERMEDI SURG P ATE ESTAB PT COMPREHEN 00387 [facility] SIVE 0 W W METABOLIC [facility] C[facility] COLLECTIO 58494 [facility] N VENOUS 0 W W BLOOD [facility] CENTER BILIRUBIN 51419 [facility] DIRECT 0 W W [facility] CENTER BLOOD 24118 [facility] COUNT 0 W W COMPLETE [facility] AUTO&AUTO MEDICAL [facility] DIFRNTL CENTER CENTER WBC OPHTH [address] [place] [facility] MEDICAL 0 FOR MARTHA Emmanuel XM&EVAL EYEHLTH & INTERMEDI SURG PSC ATE ESTAB PT CORRECTIO 40865 [place] INST [place] N 0 FOR MARTHA TRICHIASI EYEHLTH & S SURG PSC EPILATION FORCEPS ONLY OPHTH [address] [place] [facility] MEDICAL 0 FOR MARTHA Emmanuel XM&EVAL EYEHLTH & INTERMEDI SURG PSC ATE ESTAB PT UNCLASSIF J3490 [facility] IED DRUGS 0 W W REGIONAL [facility] MEDICAL [place] CENTER INJECTION J3010 [facility] FENTANYL 0 W W [place] REGIONAL REGIONAL 0.1 [facility] CENTER INJECTION 43633 [facility] CARDIAC 0 W W CATHJ L REGIONAL REGIONAL VENTR/L MEDICAL MEDICAL ATR CENTER CENTER ANGIOGRAP H PLCMT G0269 [facility] OCCL DEVC 0 W W REGIONAL REGIONAL SAMUEL/ART MEDICAL MEDICAL POST CENTER CENTER SURG/INTR VNL PROC LOCM Q9967 [facility] [phone] W W MG/ML REGIONAL [facility] IODINE MEDICAL MEDICAL CONCENTRA CENTER CENTER TION PER ML I SI&R 08051 [facility] F/NJX PX 0 W W DURING REGIONAL REGIONAL C-CATHJ MEDICAL MEDICAL PULM&/OR CENTER CENTER SELECT I SI&R 59920 [facility] F/NJX PX 0 W W DURING REGIONAL REGIONAL C-CATHJ MEDICAL MEDICAL VENTR&/[place] [address] [facility] C-CATHJ 0 W W F/SLCTV C [facility] C[facility] L HRT 64621 [facility] CATHETERI 0 W W ZATION REGIONAL REGIONAL RETROGRAD MEDICAL MEDICAL E CENTER CENTER BRACHIAL PERQ INJECTION J2001 [facility] 0 W W LIDOCAINE REGIONAL REGIONAL HCL MEDICAL MEDICAL INTRAVENO CENTER CENTER US INFUS 10 MG INJECTION [id number] MEADOW[facility]IE MEADOWVIE 0 W W [place] [facility] PER MEDICAL MEDICAL 1 MG [facility] ECG 15279 MEADOWVIE MEADOWVIE ROUTINE 0 W W ECG REGIONAL REGIONAL W/LEAST MEDICAL MEDICAL 12 LDS [facility] TRCG ONLY W/O I&R BLOOD 92132 MEADOW[facility]IE MEADOWVIE COUNT 0 W W COMPLETE REGIONAL REG[facility]AL AUTO&AUTO MEDICAL MEDICAL DIFRNTL CENTER CENTER WBC COLLECTIO 10211 MEAD[facility]IE MEADOWVIE N VENOUS 0 W W BLOOD [facility]AL [facility] VENIPUNCT MEDICAL MEDICAL URE CENTER CENTER BASIC 08443 JOHNYOLANDA THOMPSON METABOLIC 0 W W PANEL [facility]AL CALCIUM MEDICAL MEDICAL TOTAL CENTER CENTER TECHNETIU A9502 JOHNYOLANDA Kasper TC-99M 0 W W TETROFOSM REGIONAL REGIONAL IN DX PER [facility] CENTER DOSE CV STRS [address]509 [facility], TST 0 [place] HIWOT R XERS&/OR HEART RX CONT ECG W/O I&R MYOCARDIA 71852 JOHNELSYSHAE JAY L SPECT 0 W W MULTIPLE REGIONAL REGIONAL STUDIES [facility] CENTER CV STRS 01201 JAY THOMPSON TST 0 W W XERS&/OR REGIONAL REGIONAL RX CONT MEDICAL MEDICAL ECG TRCG CENTER CENTER ONLY CV STRS 42133 [facility], TST 0 [place] HIWOT R XERS&/OR HEART RX CONT ECG I&R ONLY OPHTH 96812 [facility] 0 FOR , MARTHA L XM&EVAL EYEHLTH & INTERMEDI SURG PSC ATE ESTAB PT CV STRS 54130 JOHNYOLANDA THOMPSON TST 0 W W XERS&/OR REGIONAL REGIONAL RX CONT MEDICAL MEDICAL ECG TRCG CENTER CENTER ONLY ECHO 15149 JOHNYOLANDA THOMPSON TTHRC R-T 0 W W 2D REGIONAL REGIONAL W/WOM-MOD MEDICAL MEDICAL E COMPL CENTER CENTER SPEC&COLR D CV STRS 93938 [facility] TST 0 [place] YOLIS XERS&/OR HEART RX CONT ECG W/O I&R CV STRS 89537 [facility] TST 0 [place] XERS&/OR HEART RX CONT ECG I&R ONLY COMPREHEN 71782 LABORATOR LABORATOR SIVE 0 Y & Y & METABOLIC BIODIAGNO BIODIAGNO PANEL STICS STICS COLLECTIO 53583 [facility] N VENOUS 0 PRIMARY [facility] BLOOD CARE [facility]AL[facility] IRON 62022 LABORATOR LABORATOR BINDING 0 Y & Y & CAPACITY BIODIAGNO BIODIAGNO STICS STICS BLOOD 64654 LABORATOR LABORATOR COUNT 0 Y & Y & COMPLETE BIODIAGNO BIODIAGNO AUTO&AUTO [place] [address] LABORATOR LABORATOR FERRITIN 0 Y & Y & BIODIAGNO BIODIAGNO STICS STICS CYANOCOBA 15830 LABORATOR LABORATOR EDD 0 Y & Y & VITAMIN BIODIAGNO BIODIAGNO B-12 STICS STICS 25 40450 LABORATOR LABORATOR HYDROXY 0 Y & Y & INCLUDES BIODIAGNO BIODIAGNO FRACTIONS [place] [address] LABORATOR LABORATOR IRON 0 Y & Y & BIODIAG[place] [address] LABORATOR LABORATOR FOLIC 0 Y & Y & ACID BIODIAGNO BIODIAGNO SERUM STICS STICS CORRECTIO 22370 [facility] N 0 FOR , MARTHA Benitez TRICHIASI EYEHLTH & S SURG PSC EPILATION FORCEPS ONLY OPHTH 24968 [facility] 0 FOR , MARTHA Benitez XM&EVAL EYEHLTH & INTERMEDI SURG PSC [place]E [place]AB [place] ECG 89617 [facility] ROUTINE 0 PRIMARY ALVAREZ ECG CARE DECALVO, W/LEAST [facility]ENTER[facility] KYA 12 LDS OPAL V TRCG ONLY W/O I&R CORRECTIO 34557 [facility] N 0 FOR , MARTHA Benitez TRICHIASI EYEHLTH & S SURG PSC EPILATION FORCEPS ONLY OPHTH 99086 [facility] 0 FOR , MARTHA Benitez XM&EVAL EYEHLTH & INTERMEDI SURG PSC ATE ESTAB PT OPHTH 47307 [facility] 9 FOR , MARTHA Benitez XM&EVAL EYEHLTH & INTERMEDI SURG PSC ATE ESTAB PT CORRECTIO 64603 [facility] 9 FOR , MARTHA Benitez TRICHIASI EYEHLTH & S SURG PSC EPILATION FORCEPS ONLY COLLECTIO 74322 [facility] N VENOUS 9 PRIMARY ALVAREZ BLOOD CARE DECALVO, VENIPUNCT CENTERINC KYA URE OPAL V COMPREHEN 81823 [facility] METABOLIC PANEL BLOOD 50630 [facility] COUNT 9 [facility] COMPLETE AUTO&AUTO DIFRNTL WBC CORRECTIO 39326 [facility] 9 MARTHA TELLES TRICHIASI EYEHLTH & S SURG PSC EPILATION FORCEPS ONLY OPHTH 54741 [facility] 9 MARTHA TELLES XM&EVAL EYEHLTH & INTERMEDI SURG PSC ATE ESTAB PT OPHTH 40737 [facility] 9 FOR , MARTHA Benitez XM&EVAL EYEHLTH & INTERMEDI SURG PSC ATE ESTAB PT RADIOLOGI 69574 JAY Matthews EXAM 9 W W CHEST 2 [facility] FRONTAL&L CENTER CENTER ATERAL PROSTATE [id number] [facility] CANCER 9 [facility] SCREENING ; PSA TEST URNLS DIP 99856 [facility] 9 [facility] STICK/TAB LET REAGENT AUTO MICROSCOP Y CYANOCOBA 30893 [facility] EDD 9 [facility] VITAMIN B-12 25 65653 [facility] HYDROXY 9 [facility] INCLUDES FRACTIONS IF PERFORMED BLOOD 80049 [facility] COUNT 9 [facility] COMPLETE AUTO&[place] [address] [facility] THYROID 9 [facility] [place] [address] [facility] FOLIC 9 [facility] [place] [address] [facility] HAPTOGLOB 9 [facility] IN QUANTITAT BALAJI COMPREHEN 28863 [facility] SIVE 9 [facility] METABOLIC PANEL OPHTH 34415 [facility] 9 FOR , MARTHA Benitez XM&EVAL EYEHLTH & INTERMEDI SURG PSC ATE ESTAB PT COLLECTIO 69840 JAY THOMPSON N VENOUS 9 W W BLOOD [facility]RE CENTER CENTER BLOOD 43024 [facility] COUNT 9 W W COMPLETE REGIONAL REGIONAL AUTO&AUTO MEDICAL MEDICAL DIFRNTL [facility] WBC HEPATIC 07433 [facility] ME[facility] FUNCTION 9 W W PANEL [facility] CENTER CORRECTIO 70648 [facility] 9 MARTHA TELLES TRICHIASI EYEHLTH & S SUR[place] [address] PATHOLOGY PATHOLOGY SURG 9 & & PATHOLOGY CYTOLOGY CYTOLOGY LAB LAB GROSS&HERB ROSCOPIC EXAM EXCISION 52338 SANDY DELGADO MALIGNANT 9 , KIM , KIM LESION S/N/H/F/G 0.6-1.0 CM COLLECTIO 38173 [facility] N VENOUS 9 [facility] BLOOD VENIPUNCT URE HEPATIC 27929 [facility] FUNCTION 9 [facility] PANEL OPHTH 30281 [facility] 9 MARTHA TELLES XM&EVAL EYEHLTH & INTERMEDI SURG PSC ATE ESTAB PT BLOOD 01438 [facility] COUNT 9 [facility] COMPLETE AUTO&AUTO DIFRNTL WBC BLOOD 17206 [facility] COUNT 9 [facility]IC AMERIC COMPLETE HOLDING HOLDING AUTO&AUTO DIFRNTL WBC ALBUMIN 52143 [facility] SERUM 9 AMERIC AMERIC PLASMA/[place] [address] [facility] PHOSPHATA 9 AMERIC AMERIC SE HOLDING HOLDING ALKALINE POTASSIUM 39491 [facility] SERUM 9 AMERIC AMERIC PLASMA/WH HOLDING HOLDING OLE BLOOD COLLECTIO 29024 [facility] N VENOUS 9 AMERIC AMERIC BLOOD HOLDING HOLDING VENIPUNCT URE GLUC-6-PH 69957 [facility] OSPHATE 9 AMERIC AMERIC DEHYDROGE HOLDING HOLDING NASE QUANTITAT BALAJI GLUCOSE 96313 [facility] QUANTITAT 9 AMERIC AMERIC BALAJI BLOOD HOLDING HOLDING XCPT REAGENT STRIP SODIUM 58526 [facility] SERUM 9 AMERIC AMERIC PLASMA OR HOLDING HOLDING WHOLE BLOOD CALCIUM 68127 [facility] TOTAL 9 AMERIC AMERIC HOLDING HOLDING PROTEIN 48477 [facility] XCPT 9 AMERIC AMERIC REFRACTOM HOLDING HOLDING ETRY SERUM PLASMA/[place] [address] UNIVERSIT TERESA, LIP 9 Y ASSOC SPENCER Miller DERMATOLO GY CREATININ 32852 [facility] E BLOOD 9 AMERIC AMERIC HOLDING HOLDING CHLORIDE 06557 [facility] BLD 9 AMERIC AMERIC HOLDING HOLDING BX SKIN 69985 UNIVERSIT TERESA, SUBCUTANE 9 Y ASSOC SPENCER Miller OUS&/MUCO DERMATOLO US GY MEMBRANE 1 LESION COL-CHR/M 26432 [facility] S NONDRUG 9 AMERIC AMERIC ANALYTE HOLDING HOLDING LEV QUAL/[place] [address] [facility] UREA 9 AMERIC AMERIC NITROGEN HOLDING HOLDING QUANTITAT BALAJI BILIRUBIN 54295 [facility] TOTAL 9 AMERIC AMERIC HOLDING HOLDING TRANSFERA 38134 [facility] SE 9 AMERIC AMERIC ASPARTATE HOLDING HOLDING AMINO AST SGOT OPHTH 16288 [facility] 9 FOR , MARTHA Benitez XM&EVAL EYEHLTH & INTERMEDI SURG PSC ATE ESTAB PT CT THORAX 36832 [facility], 9 IGLESIA Hastings W/CONTRAS RADIOLOGY T MATERIAL ASSOCIATE S PSC 3D 26569 [facility], RENDERING 9 IGLESIA Hastings W/INTERP RADIOLOGY & POSTPROCE ASSOCIATE SS S PSC SUPERVISI ON RINGERS J7120 [facility] LACTATE 9 W W INFUSION REGIONAL REGIONAL UP TO MEDICAL MEDICAL 1000 CC CENTER CENTER LAPAROSCO 64841 [facility] MEADOWVIE PY SURG 9 W W RPR REGIONAL REGIONAL INITIAL [facility] INGUINAL [facility] HERNIA MESH C1781 [facility] MEADOWVIE 9 W W REGIONAL REGIONAL [facility] INJECTION J2250 MEADOWVIE MEADOWVIE 9 W W MIDAZOLAM REGIONAL REGIONAL HCL PER MEDICAL MEDICAL 1 MG [facility] INJECTION J0690 [facility] MEADOWVIE 9 W W CEFAZOLIN REGIONAL REGIONAL SODIUM [facility] MEDICAL 500 MG [facility] INJECTION J3010 ME[facility]IE MEADOWVIE FENTANYL 9 W W CITRATE REGIONAL REGIONAL 0.1 MG [facility] C[facility] ANESTHESI 76422 [facility] BRAMARCELAON A HERNIA 9 LTH , CELESTE REPAIR ANESTHESI LOWER A PSC ABDOMEN NOS ECG 03306 [facility] ROUTINE 9 W W ECG REGIONAL REGIONAL W/LEAST MEDICAL MEDICAL 12 [facility] CENTER TRCG ONLY W/O I&R RADIOLOGI 93681 [facility] ME[facility] C EXAM 9 W W CHEST 2 REGIONAL REGIONAL VIEWS [facility] FRONTAL&L CENTER CENTER ATERAL URNLS DIP 97984 [facility] 9 W W STICK/TAB REGIONAL REGIONAL LET MEDICAL MEDICAL REAGENT CENTER CENTER AUTO MICROSCOP Y BLOOD 13889 [facility] COUNT 9 W W COMPLETE REGIONAL REGIONAL AUTO&AUTO MEDICAL MEDICAL DIFRNTL CENTER CENTER WBC COMPREHEN 76310 [facility] SIVE 9 W W METABOLIC REGIONAL REGIONAL PANEL [facility] COLLECTIO 87947 [facility] MEADOWVIE N VENOUS 9 W W BLOOD REGIONAL [facility] VENIPUNCT [facility] URE [facility] OPH BMTRY 91014 [facility] 9 FOR , MARTHA Benitez ECHOGRAPY EYEHLTH & A-SCAN SURG PSC IO LENS PWR JEFF OPHTH 11557 [facility] 9 FOR , MARTHA Benitez XM&EVAL EYEHLTH & COMPRHNSV SURG PSC ESTAB PT 1/> OPHTH 22789 [facility] 8 FOR , MARTHA Benitez XM&EVAL EYEHLTH & INTERMEDI SURG PSC ATE ESTAB PT OPHTH 06916 [facility] 8 FOR , MARTHA Benitez XM&EVAL EYEHLTH & COMPRE SURG PSC NEW PT 1/> VST FUNDUS 08750 RUDI GRIJALVA, PHOTOGRAP 8 MURALI CARRION HY W/INTERPR ETATION & REPORT OPHTH 42521 RUDI GRIJALVA, MEDICAL 8 MURLAI CARRION XM&EVAL COMPRHNSV ESTAB PT 1/> Encounters Encounter Start End Date Code Location Performer Type Date OFFICE 59857 [facility] 5 5 PRIMARY T VISIT [facility]ARE 15 CENTER MINUTES OFFICE 11501 [facility] 5 5 PRIMARY T VISIT CARE 15 CENTER MINUTES OFFICE 59557 SHEYLA CARRION OUTPATIEN 4 4 ABR ABR T VISIT 15 MINUTES [facility] 4 4 [facility] 94314 [facility] 4 4 PRIMARY T VISIT CARE 25 CENTER MINUTES OFFICE 40792 [facility] 4 4 PRIMARY T VISIT CARE 25 CENTER MINUTES [facility]48 [facility] 3 3 PRIMARY T VISIT CARE 15 CENTER MINUTES OFFICE 90355 [facility] 2 2 PRIMARY T VISIT CARE 25 CENTER MINUTES OFFICE 23066 [facility] 2 2 PRIMARY T VISIT CARE 25 CENTER MINUTES OFFICE 24667 [facility] 1 1 PRIMARY T VISIT CARE 10 CENTER MINUTES OFFICE 72549 [facility] OUTPATIEN 1 1 PRIMARY ALVAREZ T VISIT CARE DECALVO 15 CENTER MAR MINUTES OFFICE 20972 [facility] 1 1 PRIMARY T VISIT CARE 15 CENTER MINUTES OFFICE 22192 [facility] 1 1 PRIMARY T VISIT CARE 15 CENTER MINUTES OFFICE 48576 [facility] 1 1 PRIMARY T VISIT CARE 15 CENTER MINUTES HOSPITAL MEAWVIE - 1 1 [facility] 53945 [facility] 1 1 PRIMARY T VISIT CARE 15 CENTER MINUTES OFFICE 15670 [facility] OUT[facility] 1 1 [facility] N RAG T NEW 45 HEART MINUTES OFFICE 47207 [facility] 0 0 PRIMARY T VISIT CARE 15 CENTER MINUTES [facility]OSPITAL [facility] 0 [facility] 0 [facility] ME[facility] - 0 0 W [facility] OFFICE 82268 [facility] 0 0 [facility] YOLIS T VISIT HEART 25 [facility] MEADOWV[facility] 0 0 [facility] 0 0 W [facility] OFFICE 89246 [facility] 0 0 PRIMARY T VISIT CARE 15 [facility] FREE 0 0 PRIMARY STANDING CARE [facility] FREE 0 0 [facility] OFF[facility] 75898 [facility] 0 0 [facility]ES [facility] 97519 [facility] 0 0 PRIMARY T VISIT CARE 15 [facility] FREE 0 0 [facility] OFF[facility] 75648 [facility] 9 9 PRIMARY T VISIT CARE 15 [facility] MINUTES CLINIC, [facility] FREE 9 9 [facility] OFFICE 80781 [facility] 9 9 PRIMARY T VISIT CARE 10 [facility] MINUTES CLINIC, [facility] FREE 9 9 [facility] OFFICE 13144 [facility] 9 9 PRIMARY T VISIT 5 CARE MINUTES [facility] FREE 9 9 PRIMARY STANDING CARE [facility] MEADOWVIE [facility] 9 9 [facility] FREE 9 9 PRIMARY STANDING CARE [facility] OFFICE 74248 [facility] 9 9 PRIMARY T VISIT CARE 25 [facility]OW[facility] - 9 [facility] 95280 [facility] 9 9 , KIM ALVAREZ ION NEW/ESTAB PATIENT 40 MIN OFFICE 72459 [facility] 9 Y ASSOC SPENCER Miller ION DERMATOLO NEW/ESTAB GY PATIENT 40 MIN [facility] MEADOW - 9 9 [facility] - 9 9 W [facility] OFFICE 94398 [facility] OUT[facility] 9 9 PRIMARY T NEW 20 CARE MINUTES [facility], [facility] FREE 9 9 PRIMARY STANDING CARE [facility] OFFICE 38115 [facility] OUTPATIEN 9 9 MARTHA TELLES T VISIT EYEHLTH & 15 SURG PSC MINUTES OFFICE 69961 RUDI GRIJALVA OUTPATIEN 8 8 MURALI CARRION T VISIT 10 MINUTES
--- OUTSIDE RECORDS SUMMARY | 2016-07-19 23:28 | External Medical Summary Rpt ---
Author Author , Organization [employer] Address Unknown Phone Unavailable Care Team Providers Care Plugger Worker Name Role Phone MURALI GRIJALVA, Unavailable Unavailable [...] ABR SHEYLA ABR, SHEYLA Unavailable Unavailable [facility] Un[facility] Unavailable [facility], [facility] & Unavailable Unavailable [facility], [place] [facility] Unavailable Unavailable [facility], [facility], Unavailable Unavailable [facility] & Unavailable [facility]available [facility] & Unavailable Unavailable [facility], [facility] Unavailable Unavailable [facility] JAYCE RIVERA Unavailable Unavailable [facility], Unavailable Unavailable [facility], Unavailable Unavailable DANIELLE DÍAZ [facility] Unavailable Unavailable MEDICAL, [facility] Unavailable Unavailable MED[facility] CENTER, [facility], Unavailable Unavailable [facility] Unavailable Unavailable [...] [facility] CARDI[facility] DYSRHYTHMIA [facility] 77433 OTHER 04-05-2014 [facility] MALAISE AND [facility] FATIGUE [facility] 3688 OTHER 02-23-2014 [facility] SPECIFIED DIAGNOSTICS VISUAL DISTURBANCE S 61189 PAIN IN OR 02-23-2014 [facility] AROUND [facility]YE DIAGNO[facility] 20245 URINARY 02-23-2014 [facility] FREQUENCY DIAGNOSTICS 32139 NONSPECIFIC 02-23-2014 [facility] ABNORMAL [facility]AG[facility] UNSPEC CV FUNCTION STUDY V7791 SCREENING 02-23-2014 [facility] FOR LIPOID DIAGNOSTICS DISORDERS 07875 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 [facility] [place] [facility] WITHOUT IN[facility] ENTROPION 53585 JL MUCOUS 02-22-2014 [facility] PEMPHIGOID [place] OBISPO W/OCULAR INVLV 4149 UNSPECIFIED 10-15-2013 [facility] A[facility] CHRONIC ISCHEMIC HEART DISEASE 09933 OTHER 10-15-2013 [facility] SPECIFIED CARDIAC DYSRHYTHMIA S 2859 UNSPECIFIED 10-07-2013 [facility] ANEMIA [facility]ICAL 4139 OTHER AND 10-07-2013 [facility] UNSPECIFIED HEART ANGINA PECTORIS 30851 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 [facility] ATHEROSCLER REGIONAL [place] [place] [facility] CORONARY ARTERY 4280 CONGESTIVE 10-07-2013 [facility] HEART FAILURE UNSPECIFIED 77620 CHEST PAIN 10-07-2013 [facility] UNSPECIFIED REGIONAL MEDICAL 09368 OTH 10-07-2013 [facility] NONSPECIFIC HEART ABNORM CV SYSTEM FUNCTION STUDY 43116 SHORTNESS 09-17-2013 [facility] OF BREATH HEART 57168 NONSPECIFIC 09-17-2013 [facility] ABNORMAL HEART ELECTROCARD IOGRAM 52007 ANEMIA OF 09-07-2013 [facility] OTHER DIAGNOSTICS CHRONIC DISEASE 7804 DIZZINESS 09-07-2013 [facility] [place] [facility] 7840 HEADACHE 09-07-2013 [facility] DI[facility] V5869 LONG-TERM 09-07-2013 [facility] (CURRENT) DIAGNOSTICS USE OF OTHER MEDICATIONS V431 LENS 04-24-2013 [place] [facility] BY [facility] OTHER INSTITUTE MEANS 2469 UNSPECIFIED 03-05-2013 [facility] DISORDER DIAGNOSTICS OF THYROID 2689 UNSPECIFIED 03-05-2013 [facility] VITAMIN D DIAGNOSTICS DEFICIENCY 23343 UNSPECIFIED 03-05-2013 [facility] DISORDER DIAGNOSTICS OF EYE 3804 IMPACTED 03-05-2013 [facility] CERUMEN DIAGNOSTICS 49463 DISORDER OF 03-05-2013 [facility] BONE AND DIAGNOSTICS CARTILAGE UNSPECIFIED V851 BODY MASS 03-05-2013 [facility] INDEX DIAGNOSTICS BETWEEN 19-24 ADULT 67698 NUCLEAR 09-18-2012 [facility] 3669 UNSPECIFIED 09-18-2012 [place] CATARACT [facility] 15195 UNSPECIFIED 09-10-2012 [facility] CASTR[facility] INTERSTITIA L KERATITIS 83206 SCARRING OF 09-10-2012 [facility] [place] CONJUNCTIVA 30954 UNSPECIFIED 09-10-2012 [facility] [place] ABNORMAL PUPILLARY FUNCTION 2662 OTHER 01-30-2012 [facility] B-COMPLEX PRIMARY DEFICIENCIE CARE CENTER S 2669 UNSPECIFIED 01-30-2012 [facility] VITAMIN B DIAGNOSTICS DEFICIENCY 5225 PERIAPICAL 06-18-2011 [facility] ABSCESS PRIMARY WITHOUT CARE CENTER SINUS 68764 UNSPECIFIED 06-18-2011 [facility] PRIMARY OSTEOPOROSI CARE [...] & LENIN BIODIAGNOST ICS V8281 SPECIAL 03-27-2010 [place] SCREENING REGIONAL FOR MEDICAL OSTEOPOROSI S 7851 PALPITATION 02-13-2010 [facility] S HEART 82633 BLEPHAROPHI 01-09-2010 [place] [facility] [place] EYE[place] & SURG P 2800 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 BI[facility] SECONDARY ICS TO BLOOD LOSS 4011 ESSENTIAL 06-13-2009 [place] HYPERTENSIO REGIONAL N, [facility] 2692 UNSPECIFIED 04-05-2009 [facility] VITAMIN PRIMARY DEFICIENCY CARE CENTERINC 39567 UNSPECIFIED 03-07-2009 [place] [facility] CORNEAL EYEHLTH & OPACITY SURG PSC V7644 SPECIAL 02-23-2009 [facility] SCREENING PRIMARY MALIGNANT CARE NEOPLASM OF CENTERINC PROSTATE V7651 SPECIAL 02-23-2009 [facility] SCREENING PRIMARY FOR CARE MALIGNANT CENTERINC NEOPLASMS COLON 4940 BRONCHIECTA 10-26-2008 [facility] SIS WITHOUT RADIOLOGY ACUTE ASSOCIATES EXACERBATIO PSC N 7862 COUGH 10-26-2008 PSYCHIATRIC 2324 CARCINOMA 10-01-2008 PATHOLOGY & IN SITU OF CYTOLOGY SCALP AND LAB SKIN OF NECK 1733 OTH MALIG 09-30-2008 [facility], NEOPLASM KIM SKIN OTH & UNS PARTS FACE V1083 PERSONAL 09-30-2008 [facility], HISTORY KIM OTHER MALIGNANT NEOPLASM SKIN 1734 OTHER 09-02-2008 [facility] MALIGNANT ASSOC NEOPLASM OF DERMATOLOGY SCALP & SKIN OF NECK 6944 PEMPHIGUS 09-02-2008 [facility] 6948 OTHER 09-02-2008 [facility] SPECIFIED ASSOC BULLOUS DERMATOLOGY DERMATOSIS 4928 OTHER 07-09-2008 [facility] EMPHYSEMA RADIOLOGY ASSOCIATES PSC 31529 OTHER 07-09-2008 [facility] DISEASES OF RADIOLOGY LUNG NOT ASSOCIATES ELSEWHERE PSC CLASSIFIED 7856 ENLARGEMENT 07-09-2008 [facility] OF LYMPH RADIOLOGY NODES ASSOCIATES PSC 88034 ING VANITA 06-22-2008 [place] W/O MENTION H ANESTHESIA OBST/GANGRE PSC N UNILAT/UNSP EC 496 CHRONIC 06-21-2008 [facility] RADI[facility] OBSTRUCTION ASSOCIATES NEC PSC 78759 ING VANITA 06-21-2008 [facility] W/O REGIONAL OBST/GANGRE MEDICAL N RECUR CENTER UNILAT/UNS V1201 PERSONAL 06-21-2008 [facility] HISTORY OF REGIONAL TUBERCULOSI MEDICAL S CENTER V7284 UNSPECIFIED 06-21-2008 [place] REGIONAL PRE-OPERATI MEDICAL VE CENTER EXAMINATION 5539 VANITA UNS 06-14-2008 [facility] SITE ABD PRIMARY CAV W/O CARE MENTION CENTERINC OBST/GANGRE N 90913 UNSPECIFIED 06-09-2007 RUD[facility], PTOSIS OF MURALI EYELID 83314 DERMATOCHAL 06-09-2007 [facility] ASIS MURALI 28285 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 Procedures Procedure DOS Code Location Performer Comment ECG 17773 [facility] KATHY ROUTINE 5 PRIMARY ECG CARE W/LEAST CENTER 12 LDS TRCG ONLY W/O I&R BLOOD 36131 [facility] MAE KATHY COUNT 5 PRIMARY HEMOGLOBI CARE N CENTER BLOOD 78107 [facility] COUNT 5 DIAGNOSTI DIAGNOSTI COMPLETE CS CS AUTO&[place] [address] [facility] PROSTATE 5 DIAGNOSTI DIAGNOSTI [place] [address] [facility] THYROID 5 DIAGNOSTI DIAGNOSTI STIMULATI CS CS NG HORMONE TSH COLLECTIO 15456 [facility] N VENOUS 5 DIAGNOSTI DIAGNOSTI BLOOD CS CS VENIPUNCT URE COMPREHEN 59595 [facility] SIVE 5 DIAGNOSTI DIAGNOSTI METABOLIC CS CS PANEL OPHTH 72964 [facility] 5 EYE HUONG XM&EVAL INSTITUTE INTERMEDI ATE ESTAB PT OPHTH 52862 [facility] 4 EYE HUONG XM&EVAL INSTITUTE INTERMEDI ATE ESTAB PT CORRECTIO 85127 [facility] 4 EYE HUONG TRICHIASI INSTITUTE [place] DOP [address]190 [facility] PATRICIA&/OR 4 [facility] PRESS HEART C/IRWIN RSRV TRANG 1ST VSL R & L HRT 26757 [facility] CATH 4 [facility] WINJX HRT HEART ART& L VENTR IMG GUIDE C1769 [facility] WIRE 4 W W [facility] MEDICAL MEDICAL ARTERIAL 73207 [facility] PUNCTURE 4 W W WITHDRAWA [facility] L BLOOD MEDICAL MEDICAL DX INTRDUCR/ C1766 [facility] SHEATH 4 W W GUID [facility] INTRACARD MEDICAL MEDICAL EP NOT PEEL-AWAY CATHETER C1887 [facility] GUIDING 4 W W [facility] MEDICAL CV STRS 16529 [facility] TST 4 W W XERS&/OR [facility] RX CONT [place]ICAL [place] [address] [facility] MAGNESIUM 4 W W [facility] MEDICAL MEDICAL ECHO 43958 [facility] TTHRC R-T 4 W W 2D [facility] W/WOM-MOD MEDICAL MEDICAL E COMPL SPEC&COLR D BLOOD 97324 [facility] COUNT 4 W W COMPLETE [facility] AUTO&AUTO [place] [address] [facility] THYROID 4 W W STIMULATI REGIONAL REGIONAL [place] [address] [facility] FREE 4 W W THYROXINE REGIONAL REGIONAL MEDICAL MEDICAL COMPREHEN 35089 [facility] SIVE 4 W W METABOLIC REGIONAL REGIONAL PANEL MEDICAL MEDICAL COLLECTIO 48914 [facility] VELASCOWSHAE N VENOUS 4 W W BLOOD REGIONAL REGIONAL VENIPUNCT MEDICAL MEDICAL URE MYOCARDIA 94857 [place] JAYCE L SPECT 4 VALLEY [place] MULTIPLE HEART STUDIES TECHNETIU A9502 JAY THOMPSON M TC-99M 4 W W TETROFOSM REGIONAL REGIONAL IN DX PER MEDICAL MEDICAL STUDY DOSE CV STRS 55839 [facility] TST 4 [place] XERS&/OR HEART RX CONT ECG I&R ONLY COMPREHEN 84442 [facility] SIVE 4 DIAGNOSTI DIAGNOSTI METABOLIC CS CS PANEL COLLECTIO 79393 [facility] N VENOUS 4 DIAGNOSTI DIAGNOSTI [place] [address] [facility] THYROID 4 DIAGNOSTI DIAGNOSTI STIMULATI CS CS NG HORMONE TSH BLOOD 65532 [facility] COUNT 4 DIAGNOSTI DIAGNOSTI COMPLETE CS CS AUTO&AUTO DIFRNTL WBC ECG 10256 [facility] ROUTINE 4 PRIMARY Y BRE ECG CARE W/LEAST CENTER 12 LDS TRCG ONLY W/O I&[place] [address] [facility] PROSTATE 4 DIAGNOSTI DIAGNOSTI SPECIFIC CS CS ANTIGEN TOTAL CORRECTIO 23442 [facility] N 4 EYE [facility] TR[facility] INSTITUTE S EPILATION FORCEPS ONLY OPHTH 41667 [facility] 4 EYE HUONG XM&EVAL INSTITUTE INTERMEDI ATE ESTAB PT CORRECTIO 78322 [facility] N 4 EYE [facility]ONG TRICHIASI INSTITUTE S EPILATION FORCEPS ONLY OPHTH 32530 [facility] 4 EYE HUONG XM&EVAL INSTITUTE INTERMEDI ATE ESTAB PT REMOVAL 72243 [facility] IMPACTED 4 PRIMARY PRIMARY CERUMEN CARE CARE INSTRUMEN CENTER CENTER TATION UNILAT COMPREHEN 36680 [facility] SIVE 4 DIAGNOSTI DIAGNOSTI METABOLIC CS CS PANEL COLLECTIO 65422 [facility] N VENOUS 4 DIAGNOSTI DIAGNOSTI [place] [address] [facility] THYROID 4 DIAGNOSTI DIAGNOSTI STIMULATI [place] [address] [facility] FREE 4 DIAGNOSTI DIAGNOSTI THYROXINE CS CS OPHTH 15533 [facility] 3 EYE HUONG &EVAL INSTITUTE INTERMEDI ATE ESTAB PT CORRECTIO 48293 [facility] N [address] [facility] S EPILATION FORCEPS ONLY OPHTH 18389 [facility] 3 EYE HUONG &EVAL INSTITUTE INTERMEDI ATE ESTAB PT CORRECTIO 03182 [facility] N 3 EYE [facility] [place] [facility] S EPILATION FORCEPS ONLY INJECTION J2001 [facility] 3 W W LIDOCAINE REGIONAL REGIONAL HCL MEDICAL MEDICAL INTRAVENO US INFUS 10 MG CATARACT 82955 [facility] REMOVAL 3 W W INSERTION REGIONAL REGIONAL OF LENS MEDICAL MEDICAL OPH BMTRY 05417 [facility] 3 EYE HUONG ECHOGRAPY INSTITUTE A-SCAN IO LENS PWR JEFF OPHTH 96683 [facility] 3 GLORIA GLORIA &EVAL INTERMEDI ATE NEW PT CORRECTIO 03963 [facility] N 3 EYE [facility] S EPILATION FORCEPS ONLY CORRECTIO 66096 [facility] N [address] [facility] S EPILATION FORCEPS ONLY OPHTH 96906 [facility] 3 EYE HUONG &EVAL INSTITUTE INTERMEDI ATE ESTAB PT IRON 74487 [facility] BINDING 2 DIAGNOSTI DIAGNOSTI CAPACITY CS CS BLOOD 02576 [facility] COUNT 2 DIAGNOSTI DIAGNOSTI COMPLETE CS CS AUTO&AUTO DIFRNTL WBC COMPREHEN 14011 [facility] SIVE 2 DIAGNOSTI DIAGNOST[place] [address] [facility] IRON 2 DIAGNOSTI DIAGNOSTI CS CS COLLECTIO 05026 [facility] N VENOUS 2 DIAGNOSTI DIAGNOSTI [place] [address] [facility] FOLIC 2 DIAGNOSTI DIAGNOSTI ACID CS CS SERUM 25 05398 [facility] HYDROXY 2 DIAGNOSTI DIAGNOSTI INCLUDES CS CS FRACTIONS IF PERFORMED CYANOCOBA 90793 [facility] EDD 2 DIAGNOSTI DIAGNOSTI VITAMIN CS CS B-12 BLOOD 48525 [facility] COUNT 2 DIAGNOSTI DIAGNOSTI [place] [address] [facility] FERRITIN 2 DIAGNOSTI DIAGNOSTI CS CS CORRECTIO 62130 [facility] N 2 FOR HUONG TRICHIASI EYEHLTH & S SURG P EPILATION FORCEPS ONLY OPHTH 48849 [facility] 2 FOR HUONG XM&EVAL EYEHLTH & INTER[place] [address] [facility] THYRO[facility] 2 [facility] NG HORMONE TSH CORRECTIO 96045 [facility] N 2 FOR HUONG TRICHIASI EYEHLTH & S SURG P EPILATION FORCEPS ONLY OPHTH 10028 [facility] 2 FOR HUONG XM&EVAL EYEHLTH & INTERMEDI SURG P ATE ESTAB PT 25 58268 LABORATOR LABORATOR HYDROXY 2 Y & Y & INCLUDES BIODIAGNO BIODIAGNO FRACTIONS STICS STICS IF PERFORMED CYANOCOBA 41310 LABORATOR LABORATOR EDD 2 Y & Y & VITAMIN BIODIAGNO BIODIAGNO B-12 [place] [address] LABORATOR LABORATOR TRIIODOTH 2 Y & Y & YRONINE BIODIAGNO BIODIAGNO T3 FREE STICS STICS BLOOD 88362 LABORATOR LABORATOR COUNT 2 Y & Y & COMPLETE BIODIAGNO BIODIAGNO AUTO&AUTO STICS STICS DIFRNTL WBC LIPID 84131 LABORATOR LABORATOR PANEL 2 Y & Y & BIODI[place] [address] LABORATOR LABORATOR FREE 2 Y & Y & THYROXINE BIODIAGNO BIODIAGNO STICS STICS COMPREHEN 20981 LABORATOR LABORATOR SIVE 2 Y & Y & METABOLIC BIODIAGNO BIODIAGNO PANEL STICS STICS COLLECTIO 61893 LABORATOR LABORATOR N VENOUS 2 Y & Y & BLOOD BIODIAGNO BIODIAGNO [place] [address] LABORATOR LABORATOR THYROID 2 Y & Y & STIMULATI BIODIAGNO BIODIAGNO NG STICS STICS HORMONE TSH OPHTH 29279 [facility] 2 FOR HUONG XM&EVAL EYEHLTH & INTERMEDI SURG P ATE ESTAB PT CORRECTIO 86332 [facility] N 2 FOR HUONG TRICHIASI EYEHLTH & S SURG P EPILATION FORCEPS ONLY CORRECTIO 06273 [facility] N 2 FOR HUONG TRICHIASI EYEHLTH & S SURG P EPILATION FORCEPS ONLY OPHTH 27575 [facility] 2 FOR HUONG XM&EVAL EYEHLTH & [place]MED[place] [address] LABORATOR LABORATOR SURG 1 Y & Y & PATHOLOGY BIODIAGNO BIODIAGNO STICS STICS GROSS&HERB ROSCOPIC EXAM OPHTH 91908 [facility] 1 FOR HUONG XM&EVAL EYEHLTH & INTERMEDI SURG P ATE ESTAB PT COLLECTIO 98539 [facility] N VENOUS 1 PRIMARY ALVAREZ BLOOD CARE DECALVO VENIPUNCT CENTER MAR URE CORRECTIO 10539 [facility] N 1 FOR HUONG TRICHIASI EYEHLTH & S SURG P EPILATION FORCEPS ONLY OPHTH 15605 [facility] 1 FOR HUONG XM&EVAL EYEHLTH & INTERMEDI SURG P ATE ESTAB PT OPHTH 16644 [facility] 1 FOR HOUNG XM&EVAL EYEHLTH & INTERMEDI SURG P ATE ESTAB PT CORRECTIO 21784 [facility] 1 FOR HUONG TRICHIASI EYEHLTH & S [place] [address] LABORATOR LABORATOR PROSTATE 1 Y & Y & SPECIFIC BIODIAGNO BIODIAGNO ANTIGEN STICS STICS TOTAL 25 10233 LABORATOR LABORATOR HYDROXY 1 Y & Y & INCLUDES BIODIAGNO BIODIAGNO FRACTIONS STICS STICS IF PERFORMED CYANOCOBA 85513 LABORATOR LABORATOR EDD 1 Y & Y & VITAMIN BIODIAGNO BIODIAGNO B-12 STICS STICS IRON 88389 LABORATOR LABORATOR BINDING 1 Y & Y & CAPACITY BIODIAGNO BIODIAGNO STICS STICS LIPOPROTE 83890 LABORATOR LABORATOR IN DIRECT 1 Y & Y & BIODIAGNO BIODIAGNO MEASUREME STICS STICS NT LDL CHOLESTER OL LIPID 55651 LABORATOR LABORATOR PANEL 1 Y & Y & BIODIAGNO BIODIAGNO STICS STICS BLOOD 80585 LABORATOR LABORATOR COUNT 1 Y & Y & COMPLETE BIODIAGNO BIODIAGNO AUTO&AUTO [place] [address] LABORATOR LABORATOR IRON 1 Y & Y & BIODIAG[place] [address] LABORATOR LABORATOR FOLIC 1 Y & Y & ACID BIODIAGNO BIODIAGNO SERUM STICS STICS COMPREHEN 75391 LABORATOR LABORATOR SIVE 1 Y & Y & METABOLIC BIODIAGNO BIODIAGNO PANEL STICS STICS COLLECTIO 04237 [facility] N VENOUS 1 PRIMARY ALVAREZ BLOOD CARE DECALVO VENIPUNCT CENTER [facility] URE ORGANIC 89764 LABORATOR LABORATOR ACID 1 1 Y & Y & QUANTITAT BIODIAGNO BIODIAGNO BALAJI STICS STICS DXA BONE 75309 [facility] DENSITY 1 W W STUDY 1/> REGIONAL REGIONAL SITES MEDICAL MEDICAL AXIAL SKEL OPHTH 34511 [facility] 1 FOR HUONG XM&EVAL EYEHLTH & INTERMEDI SURG P ATE ESTAB PT CORRECTIO 45461 [facility] N 1 FOR HUONG TRICHIASI EYEHLTH & S SURG P EPILATION FORCEPS ONLY ECG 42617 [facility] DEL ROUTINE 1 PRIMARY ALVAREZ ECG CARE DECALVO W/LEAST CENTER MAR 12 LDS TRCG ONLY W/O I&R CORRECTIO 40649 [facility] N 0 FOR HUONG TRICHIASI EYEHLTH & S SURG P EPILATION FORCEPS ONLY OPHTH 15289 [facility] 0 FOR HUONG XM&EVAL EYEHLTH & INTERMEDI SURG P ATE ESTAB PT ORGANIC 07991 LABORATOR LABORATOR ACID 1 0 Y & Y & QUANTITAT BIODIAGNO BIODI[place] [address] LABORATOR LABORATOR [id number] 0 Y & Y & SFERRIN BIODIAGNO BIODIAGNO STICS STICS BLOOD 42372 LABORATOR LABORATOR COUNT 0 Y & Y & COMPLETE BIODIAGNO BIODIAGNO [place] [address] LABORATOR LABORATOR FOLIC 0 Y & Y & ACID BIODIAGNO BIODIAGNO SERUM STICS STICS COMPREHEN 92036 LABORATOR LABORATOR SIVE 0 Y & Y & METABOLIC BIODIAGNO BIODIAGNO PANEL STICS STICS CYANOCOBA 71013 LABORATOR LABORATOR EDD 0 Y & Y & VITAMIN BIODIAGNO BIODIAGNO B-12 STICS STICS CORRECTIO 98827 [facility] N 0 FOR HUONG TRICHIASI EYEHLTH & S SURG P EPILATION FORCEPS ONLY OPHTH 12396 [facility] MEDICAL 0 FOR HUONG XM&EVAL EYEHLTH & INTERMEDI SURG P ATE ESTAB PT OPHTH 94797 [facility] BOONE MEDICAL 0 FOR HUONG XM&EVAL EYEHLTH & INTERMEDI SURG P ATE ESTAB PT COMPREHEN 32269 [facility]OW[facility] SIVE 0 W W METABOLIC [facility] CENTER COLLECTIO 87313 [facility] N VENOUS 0 W W BLOOD [facility] C[facility] BILIRUBIN 05672 [facility]OW[facility] DIRECT 0 W W [facility] CENTER BLOOD 13912 [facility]OW[facility] COUNT 0 W W COMPLETE [facility] AUTO&AUTO MEDICAL [facility] DIFRNTL CENTER CENTER WBC OPHTH 52568 [facility] BOONE MEDICAL 0 FOR MARTHA Emmanuel XM&EVAL EYEHLTH & INTERMEDI SURG PSC ATE ESTAB PT CORRECTIO 35940 [place] [facility] N 0 FOR MARTHA TRICHIASI EYEHLTH & S SURG PSC EPILATION FORCEPS ONLY OPHTH 79566 [facility] BOONE MEDICAL 0 FOR MARTHA Emmanuel XM&EVAL EYEHLTH & INTERMEDI SURG PSC ATE ESTAB PT UNCLASSIF J3490 [facility] IED DRUGS 0 W W [facility]AL [facility] MEDICAL [facility]BUR CENTER INJECTION J3010 [facility] FENTANYL 0 W W [place] REGIONAL REGIONAL 0.1 MG [facility] CENTER INJECTION 98010 [facility] CARDIAC 0 W W CATHJ L REGIONAL REGIONAL VENTR/L MEDICAL MEDICAL ATR CENTER CENTER ANGIOGRAP H PLCMT G0269 [facility] OCCL DEVC 0 W W REGIONAL REGIONAL SAMUEL/ART MEDICAL MEDICAL POST CENTER CENTER SURG/INTR VNL PROC LOCM Q9967 [facility] [phone] W W MG/ML REGIONAL [facility] IODINE MEDICAL MEDICAL CONCENTRA CENTER CENTER TION PER ML I SI&R 38484 [facility] F/NJX PX 0 W W [place] REGIONAL REGIONAL C-CATHJ MEDICAL MEDICAL PULM&/OR CENTER CENTER SELECT I SI&R 75961 [facility] F/NJX PX 0 W W DURING REGIONAL REGIONAL C-CATHJ MEDICAL MEDICAL VENTR&/[place] [address] [facility] C-CATHJ 0 W W F/SLCTV C [facility]AL [facility] CENTER L HRT 04499 [facility] CATHETERI 0 W W ZATION REGIONAL REGIONAL RETROGRAD MEDICAL MEDICAL E CENTER CENTER BRACHIAL PERQ INJECTION J2001 [facility] 0 W W LIDOCAINE REGIONAL REGIONAL HCL MEDICAL MEDICAL INTRAVENO CENTER CENTER US INFUS 10 MG INJECTION J2250 [facility] 0 W W MIDAZOLAM REGIONAL REGIONAL HCL PER MEDICAL MEDICAL 1 MG [facility] C[facility] ECG 63147 [facility] ROUTINE 0 W W ECG REGIONAL REGIONAL W/LEAST MEDICAL MEDICAL 12 LDS [facility] TRCG ONLY W/O I&R BLOOD 92560 [facility] COUNT 0 W W COMPLETE REGIONAL REGIONAL AUTO&AUTO MEDICAL MEDICAL DIFRNTL CENTER CENTER WBC COLLECTIO 75515 [facility] N VENOUS 0 W W BLOOD REGIONAL REGIONAL VENIPUNCT MEDICAL MEDICAL URE CENTER CENTER BASIC 83046 JOHNYOLANDA THOMPSON METABOLIC 0 W W PANEL REGIONAL REGIONAL CALCIUM MEDICAL MEDICAL TOTAL CENTER CENTER TECHNETIU A9502 JOHNYOLANDA Kasper TC-99M 0 W W TETROFOSM REGIONAL REGIONAL IN DX PER [facility] MEDICAL STUDY CENTER CENTER DOSE CV STRS 24523 [facility], TST 0 VALLEY HIWOT R XERS&/OR HEART RX CONT ECG W/O I&R MYOCARDIA 24240 JOHNELSYSHAE JAY L SPECT 0 W W MULTIPLE REGIONAL REGIONAL STUDIES [facility] MEDICAL CENTER CENTER CV STRS 47173 JAY THOMPSON TST 0 W W XERS&/OR REGIONAL REGIONAL RX CONT MEDICAL MEDICAL ECG TRCG CENTER CENTER ONLY CV STRS 01734 [facility], TST 0 VALLEY HIWOT R XERS&/OR HEART RX CONT ECG I&R ONLY OPHTH 80202 [facility] 0 FOR , MARTHA L XM&EVAL EYEHLTH & INTERMEDI SURG PSC ATE ESTAB PT CV STRS 97383 JOHNYOLANDA THOMPSON TST 0 W W XERS&/OR REGIONAL REGIONAL RX CONT MEDICAL MEDICAL ECG TRCG CENTER CENTER ONLY ECHO 55881 JOHNYOLANDA THOMPSON TTHRC R-T 0 W W 2D REGIONAL REGIONAL W/WOM-MOD MEDICAL MEDICAL E COMPL CENTER CENTER SPEC&COLR D CV STRS 74548 [facility] TST 0 VALLEY YOLIS XERS&/OR HEART RX CONT ECG W/O I&R CV STRS 72158 [facility] TST 0 [place] YOLIS XERS&/OR HEART RX CONT ECG I&R ONLY COMPREHEN 15491 LABORATOR LABORATOR SIVE 0 Y & Y & METABOLIC BIODIAGNO BIODIAGNO PANEL STICS STICS COLLECTIO 16222 [facility] N VENOUS 0 PRIMARY ALVAREZ BLOOD CARE DECALVO, [facility] OPAL V IRON 13842 LABORATOR LABORATOR BINDING 0 Y & Y & CAPACITY BIODIAGNO BIODIAGNO STICS STICS BLOOD 66259 LABORATOR LABORATOR COUNT 0 Y & Y & COMPLETE BIODIAGNO BIODIAGNO AUTO&AUTO [place] [address] LABORATOR LABORATOR FERRITIN 0 Y & Y & BIODIAGNO BIODIAGNO STICS STICS CYANOCOBA 70650 LABORATOR LABORATOR EDD 0 Y & Y & VITAMIN BIODIAGNO BIODIAGNO B-12 STICS STICS 25 49504 LABORATOR LABORATOR HYDROXY 0 Y & Y & INCLUDES BIODIAGNO BIODIAGNO FRACTIONS [place] [address] LABORATOR LABORATOR IRON 0 Y & Y & BIODIAG[place] [address] LABORATOR LABORATOR FOLIC 0 Y & Y & ACID BIODIAGNO BIODIAGNO SERUM STICS STICS CORRECTIO 81614 [facility] N 0 FOR , MARTHA Benitez TRICHIASI EYEHLTH & S SURG PSC EPILATION FORCEPS ONLY OPHTH 28525 [facility] 0 FOR , MARTHA Benitez XM&EVAL EYEHLTH & INTERMEDI SURG PSC ATE ESTAB [place] ECG 74700 [facility] DEL ROUTINE 0 PRIMARY ALVAREZ ECG CARE DECALVO, W/[facility] KYA 12 LDS OPAL V TRCG ONLY W/O I&R CORRECTIO 03984 [facility] N 0 FOR , MARTHA Benitez TRICHIASI EYEHLTH & S SURG PSC EPILATION FORCEPS ONLY OPHTH 05749 [facility] 0 FOR , MARTHA Benitez XM&EVAL EYEHLTH & INTERMEDI SURG PSC ATE ESTAB PT OPHTH 17619 [facility] 9 FOR , MARTHA Benitez XM&EVAL EYEHLTH & INTERMEDI SURG PSC ATE ESTAB PT CORRECTIO 94393 [facility] N 9 FOR , MARTHA Benitez TRICHIASI EYEHLTH & S SURG PSC EPILATION FORCEPS ONLY COLLECTIO 11793 [facility] N VENOUS 9 PRIMARY ALVAREZ BLOOD CARE DECALVO, VENIPUNCT CENTER[facility] KYA URE OPAL V COMPREHEN 43926 [facility] 9 [facility] METABOLIC PANEL BLOOD 69689 [facility] COUNT 9 [facility] COMPLETE AUTO&AUTO DIFRNTL WBC CORRECTIO 34385 [facility] 9 MARTHA TELLES TRICHIASI EYEHLTH & S SURG PSC EPILATION FORCEPS ONLY OPHTH 46387 [facility] 9 MARTHA TELLES XM&EVAL EYEHLTH & INTERMEDI SURG PSC ATE ESTAB PT OPHTH 61499 [facility] 9 FOR , MARTHA Benitez XM&EVAL EYEHLTH & INTERMEDI SURG PSC ATE ESTAB PT RADIOLOGI 79477 JAY Matthews EXAM 9 W W CHEST 2 [facility] FRONTAL&L CENTER CENTER ATERAL PROSTATE [id number] [facility] CANCER 9 [facility] SCREENING ; PSA TEST URNLS DIP 95650 [facility] 9 [facility] STICK/TAB LET REAGENT AUTO MICROSCOP Y CYANOCOBA 04777 [facility] EDD 9 [facility] VITAMIN B-12 25 82613 [facility] HYDROXY 9 [facility] INCLUDES FRACTIONS IF PERFORMED BLOOD 76506 [facility] COUNT 9 [facility] COMPLETE AUTO&[place] [address] [facility] THYROID 9 [facility] [place] [address] [facility] FOLIC 9 [facility] [place] [address] [facility] HAPTOGLOB 9 [facility] IN QUANTITAT BALAJI COMPREHEN 67592 [facility] SIVE 9 [facility] METABOLIC PANEL OPHTH 89417 [facility] 9 FOR , MARTHA Benitez XM&EVAL EYEHLTH & INTERMEDI SURG PSC ATE ESTAB PT COLLECTIO 29678 JAY THOMPSON N VENOUS 9 W W BLOOD [facility] CENTER BLOOD 20298 [facility] VELASCOW[facility] COUNT 9 W W COMPLETE REGIONAL REGIONAL AUTO&AUTO MEDICAL MEDICAL DIFRNTL [facility] WBC HEPATIC 72327 MEADOW[facility]IE MEADOWVIE FUNCTION 9 W W PANEL [facility] C[facility] CORRECTIO 67001 [facility] 9 MARTHA TELLES TRICHIASI EYEHLTH & S SUR[place] [address] PATHOLOGY PATHOLOGY SURG 9 & & PATHOLOGY CYTOLOGY CYTOLOGY LAB LAB GROSS&HERB ROSCOPIC EXAM EXCISION 10748 SANDY DELGADO MALIGNANT 9 , KIM , KIM LESION S/N/H/F/G 0.6-1.0 CM COLLECTIO 20241 [facility] N VENOUS 9 [facility] BLOOD VENIPUNCT URE HEPATIC 48890 [facility] FUNCTION 9 [facility] PANEL OPHTH 39590 [facility] 9 MARTHA TELLES XM&EVAL EYEHLTH & INTERMEDI SURG PSC ATE ESTAB PT BLOOD 42591 [facility] COUNT 9 [facility] COMPLETE AUTO&AUTO DIFRNTL WBC BLOOD 34594 [facility] COUNT 9 [facility] COMPLETE HOLDING HOLDING AUTO&AUTO DIFRNTL WBC ALBUMIN 95664 [facility] SERUM 9 AMERIC AMERIC PLASMA/[place] [address] [facility] PHOSPHATA 9 AMERIC AMERIC SE HOLDING HOLDING ALKALINE POTASSIUM 14061 [facility] SERUM 9 AMERIC AMERIC PLASMA/WH HOLDING HOLDING OLE BLOOD COLLECTIO 62729 [facility] N VENOUS 9 AMERIC AMERIC BLOOD HOLDING HOLDING VENIPUNCT URE GLUC-6-PH 60866 [facility] OSPHATE 9 AMERIC AMERIC DEHYDROGE HOLDING HOLDING NASE QUANTITAT BALAJI GLUCOSE 60734 [facility] QUANTITAT 9 AMERIC AMERIC BALAJI BLOOD HOLDING HOLDING XCPT REAGENT STRIP SODIUM 96602 [facility] SERUM 9 AMERIC AMERIC PLASMA OR HOLDING HOLDING WHOLE BLOOD CALCIUM 46290 [facility] LAB ZINO TOTAL 9 AMERIC AMERIC HOLDING HOLDING PROTEIN 97395 [facility] Z[facility] XCPT 9 AMERIC AMERIC REFRACTOM HOLDING HOLDING ETRY SERUM PLASMA/[place] [address] UNIVERSIT TERESA, LIP 9 Y ASSOC SPENCER Miller DERMATOLO GY CREATININ 46574 [facility] E BLOOD 9 AMERIC AMERIC HOLDING HOLDING CHLORIDE 75024 [facility] BLD 9 AMERIC AMERIC HOLDING HOLDING BX SKIN 65797 UNIVERSIT TERESA, SUBCUTANE 9 Y ASSOC SPENCER Miller OUS&/MUCO DERMATOLO US GY MEMBRANE 1 LESION COL-CHR/M 13846 [facility] Z[facility] S NONDRUG 9 AMERIC AMERIC ANALYTE HOLDING HOLDING LEV QUAL/[place] [address] [facility] LAB ZION UREA 9 AMERIC AMERIC NITROGEN HOLDING HOLDING QUANTITAT BALAJI BILIRUBIN 09791 [facility] LAB ZION TOTAL 9 AMERIC AMERIC HOLDING HOLDING TRANSFERA 10724 [facility] LAB ZION SE 9 AMERIC AMERIC ASPARTATE HOLDING HOLDING AMINO AST SGOT OPHTH [address] [place] [facility] 9 FOR , MARTHA Benitez XM&EVAL EYEHLTH & INTERMEDI SURG PSC ATE ESTAB PT CT THORAX 00473 [facility], 9 IGLESIA Hastings W/CONTRAS RADIOLOGY T MATERIAL ASSOCIATE S PSC 3D 48229 [facility], RENDERING 9 IGLESIA Hastings W/INTERP RADIOLOGY & POSTPROCE ASSOCIATE SS S PSC SUPERVISI ON RINGERS J7120 [facility] MEADOW[facility]IE LACTATE 9 W W INFUSION REGIONAL REGIONAL UP TO MEDICAL MEDICAL 1000 CC CENTER CENTER LAPAROSCO 56679 [facility] MEADOWVIE PY SURG 9 W W RPR REGIONAL REGIONAL INITIAL [facility] [place] HERNIA MESH C1781 MEADOWVIE MEADOWVIE 9 W W REGIONAL REGIONAL [facility] CENTER INJECTION J2250 MEADOWVIE MEADOWVIE 9 W W MIDAZOLAM REGIONAL REGIONAL HCL PER MEDICAL MEDICAL 1 MG [facility] INJECTION J0690 MEADOW[facility]IE MEADOWVIE 9 W W CEFAZOLIN REGIONAL REGIONAL SODI[facility] MEDICAL 500 MG [facility] INJECTION J3010 MEADOWVIE MEADOWVIE FENTANYL 9 W W CITRATE REGIONAL REGIONAL 0.1 MG [facility] CENTER ANESTHESI 06931 [facility] BRAMARCELAON A HERNIA 9 LTH , CELESTE REPAIR ANESTHESI LOWER A PSC ABDOMEN NOS ECG 68273 [facility]IE MEADOWVIE ROUTINE 9 W W ECG REGIONAL REGIONAL W/LEAST MEDICAL MEDICAL 12 [facility] TRCG ONLY W/O I&R RADIOLOGI 82455 [facility] MEADOWVIE C EXAM 9 W W CHEST 2 REGIONAL REGIONAL VIEWS [facility] [place] FRONTAL&L CENTER CENTER ATERAL URNLS DIP 40160 [facility]IE MEADOW[facility]IE 9 W W STICK/TAB REGIONAL REGIONAL LET MEDICAL MEDICAL REAGENT CENTER CENTER AUTO MICROSCOP Y BLOOD 77494 ME[facility] MEADOWVIE COUNT 9 W W COMPLETE REGIONAL REGIONAL AUTO&AUTO MEDICAL MEDICAL DIFRNTL CENTER CENTER WBC COMPREHEN 06011 [facility] MEADOWVIE SIVE 9 W W METABOLIC REGIONAL REGIONAL PANEL [facility] COLLECTIO 18994 MEADOWVIE MEADOWVIE N VENOUS 9 W W BLOOD [facility] VENIP[facility]CT [facility] [place] URE [facility] OPH BMTRY 71001 [facility] 9 FOR , MARTHA Benitez ECHOGRAPY EYEHLTH & A-SCAN SURG PSC IO LENS PWR JEFF OPHTH 96323 [facility] 9 FOR , MARTHA Benitez XM&EVAL EYEHLTH & COMPRHNSV SURG PSC ESTAB PT 1/> OPHTH 03079 [facility] 8 FOR , MARTHA Benitez XM&EVAL EYEHLTH & INTERMEDI SURG PSC ATE ESTAB PT OPHTH 25495 [facility] 8 FOR , MARTHA Benitez XM&EVAL EYEHLTH & COMPRE SURG PSC NEW PT 1/> VST FUNDUS 52310 RUDI GRIJALVA, PHOTOGRAP 8 MURALI CARRION HY W/INTERPR ETATION & REPORT OPHTH 59805 RUDI GRIJALVA, MEDICAL 8 MURALI CARRION XM&EVAL COMPRHNSV ESTAB PT 1/> Encounters Encounter Start End Date Code Location Performer Type Date OFFICE 58004 [facility] 5 [facility] T V[facility] 15 CENTER MINUTES OFFICE 35294 [facility] 5 5 PRIMARY T VISIT CARE 15 CENTER MINUTES OFFICE 95201 SHEYLA CARRION OUTPATIEN 4 4 ABR ABR T VISIT 15 MINUTES [facility]OSPITAL [facility] - [address] [facility] MEADOWVIE [facility] 4 4 W [facility] MEDICAL [facility] 92181 [facility] 4 4 PRIMARY T VISIT CARE 25 CENTER MINUTES OFFICE 72140 [facility] 4 4 [facility] T VISIT CARE 25 CENTER MINUTES [facility] 3 3 PRIMARY T VISIT CARE 15 CENTER MINUTES OFFICE 07150 [facility] 2 2 PRIMARY T VISIT CARE 25 CENTER MINUTES OFFICE 00508 [facility] 2 2 PRIMARY T VISIT CARE 25 CENTER MINUTES OFFICE 69419 [facility] 1 1 PRIMARY T VISIT CARE 10 CENTER MINUTES OFFICE 54514 [facility] DEL OUTPATIEN 1 1 PRIMARY ALVAREZ T VISIT CARE DECALVO 15 CENTER MAR MINUTES OFFICE 24093 [facility] 1 1 PRIMARY T VISIT CARE 15 CENTER MINUTES OFFICE 48985 [facility] 1 1 PRIMARY T VISIT CARE 15 CENTER MINUTES OFFICE 38078 [facility] 1 1 PRIMARY T VISIT CARE 15 CENTER MINUTES HOSPITAL MEAWVIE - 1 1 W [facility] MEDICAL [facility] 14150 [facility] 1 1 PRIMARY T VISIT CARE 15 CENTER MINUTES OFFICE 61873 [place] [facility] 1 1 [facility] N RAG T NEW 45 HEART MINUTES OFFICE 07002 [facility] 0 0 PRIMARY T VISIT CARE 15 CENTER MINUTES HOSPITAL MEADOWVIE - 0 0 W [facility] MEADOWVIE - 0 0 W [facility] MEADOWVIE - 0 0 W [facility] OFFICE 15555 [facility] OUTPATIEN 0 0 VALLEY YOLIS T VISIT HEART 25 [facility] ME[facility]OW[facility] - 0 0 W [facility] MEADOWVIE - 0 0 W [facility] OFFICE 44572 [facility] 0 0 PRIMARY T VISIT CARE 15 [facility] FREE 0 0 PRIMARY STANDING CARE [facility] FREE 0 0 [facility] 82746 [facility] 0 0 [facility] 87583 [facility] 0 0 PRIMARY T VISIT CARE 15 [facility] FREE 0 0 [facility] 85670 [facility] 9 9 PRIMARY T VISIT CARE 15 [facility] FREE 9 9 [facility] OFFICE 70607 [facility] 9 9 PRIMARY T VISIT CARE 10 [facility] MINUTES [facility] FREE 9 9 [facility] OFF[facility] 17569 [facility]PATIEN 9 9 PRIMARY T VISIT 5 CARE MINUTES [facility] [place] FREE 9 9 PRIMARY STANDING CARE [facility]PITAL MEADOWVIE - 9 9 [facility] [place] FREE 9 9 PRIMARY STANDING CARE [facility] OFFICE 95683 [facility] 9 9 PRIMARY T VISIT CARE 25 [facility] ME[facility]OW[facility] - 9 [facility] 08716 [facility] 9 9 , KIM ALVAREZ ION NEW/ESTAB PATIENT 40 MIN OFFICE 22486 [facility] 9 9 Y ASSOC SPENCER Miller ION DERMATOLO NEW/ESTAB GY PATIENT 40 MIN [facility]PITAL MEADOW - 9 9 [facility] W - 9 9 W [facility] OFFICE 86952 [facility] 9 9 PRIMARY T NEW 20 CARE MINUTES [facility] FREE 9 9 PRIMARY STANDING CARE [facility] OFFICE 21606 [facility] OUTPATIEN 9 9 MARTHA TELLES T VISIT EYEHLTH & 15 SURG PSC MINUTES OFFICE 58829 RUDI GRIJALVA OUTPATIEN 8 8 MURALI CARRION T VISIT 10 MINUTES
--- OUTSIDE RECORDS SUMMARY | 2016-07-19 23:31 | External Medical Summary Rpt ---
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 Name Role Phone RUDI MURALI, Unavailable Unavailable [...] ABR SHEYLA ABR, SHEYLA Unavailable Unavailable [facility], [facility] [place] [facility] & Unavailable Unavailable [facility], [place] [facility] Unavailable Unavailable [facility], [facility], Unavailable Unavailable [facility] & Unavailable [facility]available [facility] & Unavailable Unavailable [facility]available Unavailable [facility] Unavailable Unavailable [facility] JAYCE RIVERA Unavailable Unavailable [facility], Unavailable Unavailable [facility], Unavailable Unavailable DANIELLE DÍAZ [facility] Unavailable Unavailable MEDICAL, [facility] Unavailable Unavailable [facility] CENTER, [facility], Unavailable Unavailable [facility]OLOG[facility] & CYTOLOGY Unavailable Unavailable [...] DOS Provider Status 2449 UNSPECIFIED 04-05-2014 [facility] ISM 4279 UNSPECIFIED 04-05-2014 [facility] CARDIAC PRIMARY DYSRHYTHMIA CARE CENTER 86748 OTHER 04-05-2014 [facility] MALAISE AND PRIMARY FATIGUE CARE CENTER 3688 OTHER 02-23-2014 [facility] SPECIFIED DIAGNOSTICS VISUAL DISTURBANCE S 02393 PAIN IN OR 02-23-2014 [facility] AROUND EYE DIAGNOSTICS 43060 URINARY 02-23-2014 [facility] FREQUENCY DIAGNOSTICS 79293 NONSPECIFIC 02-23-2014 [facility] ABNORMAL DIAGNOSTICS UNSPEC CV FUNCTION STUDY V7791 SCREENING 02-23-2014 [facility] FOR LIPOID DIAGNOSTICS DISORDERS 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 21726 JL MUCOUS 02-22-2014 [facility] [place] [place] W/OCULAR INVLV 4149 UNSPECIFIED 10-15-2013 [facility] CHRONIC ISCHEMIC HEART DISEASE 46668 OTHER 10-15-2013 [facility] SPECIFIED CARDIAC DYSRHYTHMIA S 2859 UNSPECIFIED 10-07-2013 [facility]IA [facility] MEDICAL 4139 OTHER AND 10-07-2013 [facility] UNSPECIFIED HEART ANGINA PECTORIS 65886 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 [facility] [place] [facility] CORONARY ARTERY 4280 CONGESTIVE 10-07-2013 [facility] HEART HEART FAILURE UNSPECIFIED 15031 CHEST PAIN 10-07-2013 [facility] UNSPECIFIED REGIONAL MEDICAL 57364 OTH 10-07-2013 [facility] NONSPECIFIC HEART ABNORM CV SYSTEM FUNCTION STUDY 78035 SHORTNESS 09-17-2013 [place] [facility] 17127 NONSPECIFIC 09-17-2013 [facility] ABNORMAL HEART ELECTROCARD IOGRAM 45356 ANEMIA OF 09-07-2013 [facility] OTHER [facility]AG[facility]STICS CHRONIC DISEASE 7804 DIZZINESS 09-07-2013 [facility]IMARY GIDDINESS [facility]ARE [facility]ENTER 7840 HEADACHE 09-07-2013 [facility] V5869 LONG-TERM 09-07-2013 [facility] (CURRENT) DIAGNOSTICS USE OF OTHER MEDICATIONS V431 LENS 04-24-2013 [place] [facility] OTHER INSTITUTE MEANS 2469 UNSPECIFIED 03-05-2013 [facility] DISORDER DIAGNOSTICS OF THYROID 2689 UNSPECIFIED 03-05-2013 [facility] VITAMIN D DIAGNOSTICS DEFICIENCY 27070 UNSPECIFIED 03-05-2013 [facility] DISORDER DIAGNOSTICS OF EYE 3804 IMPACTED 03-05-2013 [facility] CERUMEN DIAGNOSTICS 05137 DISORDER OF 03-05-2013 [facility] BONE AND DIAGNOSTICS CARTILAGE UNSPECIFIED V851 BODY MASS 03-05-2013 [facility] INDEX DIAGNOSTICS BETWEEN 19-24 ADULT 21302 NUCLEAR 09-18-2012 [facility] INSTITUTE 3669 UNSPECIFIED 09-18-2012 [place] [facility] 60101 UNSPECIFIED 09-10-2012 [facility] INTERSTITIA L KERATITIS 50636 SCARRING OF 09-10-2012 [facility] CONJUNCTIVA 20054 UNSPECIFIED 09-10-2012 [facility] [place] ABNORMAL PUPILLARY FUNCTION 2662 OTHER 01-30-2012 [facility] B-COMPLEX PRIMARY DEFICIENCIE CARE CENTER S 2669 UNSPECIFIED 01-30-2012 [facility] VITAMIN B DIAGNOSTICS DEFICIENCY 5225 PERIAPICAL 06-18-2011 [facility] ABSCESS PRIMARY WITHOUT CARE CENTER SINUS 43852 UNSPECIFIED 06-18-2011 [facility] PRIMARY OSTEOPOROSI CARE [...] & LENIN BIODIAGNOST ICS V8281 SPECIAL 03-27-2010 [place] SCREENING REGIONAL FOR MEDICAL OSTEOPOROSI S 7851 PALPITATION 02-13-2010 [facility] S HEART 92971 BLEPHAROPHI 01-09-2010 [place] [facility] [place] [facility] & SURG P 2800 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 BIODIAGNOST SECONDARY ICS TO BLOOD LOSS 4011 ESSENTIAL 06-13-2009 [place] HYPERTENSIO REGIONAL N, [facility] 2692 UNSPECIFIED 04-05-2009 [facility] VITAMIN PRIMARY DEFICIENCY CARE CENTERINC 77487 UNSPECIFIED 03-07-2009 [place] [facility] [place] [facility] & OPACITY SURG PSC V7644 SPECIAL 02-23-2009 [facility] SCREENING PRIMARY MALIGNANT CARE NEOPLASM OF CENTERINC PROSTATE V7651 SPECIAL 02-23-2009 [facility] SCREENING PRIMARY FOR CARE MALIGNANT CENTERINC NEOPLASMS COLON 4940 BRONCHIECTA 10-26-2008 [place] SIS WITHOUT RADIOLOGY ACUTE ASSOCIATES EXACERBATIO PSC N 7862 COUGH 10-26-2008 [facility] 2324 CARCINOMA 10-01-2008 PATHOLOGY & IN SITU OF CYTOLOGY SCALP AND LAB SKIN OF NECK 1733 OTH MALIG 09-30-2008 [facility], NEOPLASM KIM SKIN OTH & UNS PARTS FACE V1083 PERSONAL 09-30-2008 [facility], HISTORY KIM OTHER MALIGNANT NEOPLASM SKIN 1734 OTHER 09-02-2008 [facility] MALIGNANT ASSOC NEOPLASM OF DERMATOLOGY SCALP & SKIN OF NECK 6944 PEMPHIGUS 09-02-2008 [facility] 6948 OTHER 09-02-2008 [facility] SPECIFIED ASSOC BULLOUS DERMATOLOGY DERMATOSIS 4928 OTHER 07-09-2008 [place] EMPHYSEMA RADIOLOGY ASSOCIATES PSC 19741 OTHER 07-09-2008 [place] DISEASES OF RADIOLOGY LUNG NOT ASSOCIATES ELSEWHERE PSC CLASSIFIED 7856 ENLARGEMENT 07-09-2008 [place] OF LYMPH RADIOLOGY NODES ASSOCIATES PSC 74921 ING VANITA 06-22-2008 [place] W/O MENTION H ANESTHESIA OBST/GANGRE PSC N UNILAT/UNSP EC 496 CHRONIC 06-21-2008 [place] AIR[facility]AY RADIOLOGY OBSTRUCTION ASSOCIATES NEC PSC 08741 ING VANITA 06-21-2008 [facility] W/O REGIONAL OBST/GANGRE MEDICAL N RECUR CENTER UNILAT/UNS V1201 PERSONAL 06-21-2008 [facility] HISTORY OF REG[facility]AL TUBERCULOSI MEDICAL S JENERA V7284 UNSPECIFIED 06-21-2008 [facility] PRE-OPERATI MEDICAL VE CENTER EXAMINATION 5539 VANITA UNS 06-14-2008 [facility] SITE ABD PRIMARY CAV W/O CARE MENTION CENTERINC OBST/GANGRE N 15135 UNSPECIFIED 06-09-2007 [facility] PTOSIS OF MURALI EYELID 39823 DERMATOCHAL 06-09-2007 [facility] ASIS MURALI 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 Procedures Procedure DOS Code Location Performer Comment BLOOD 14072 [facility] MA[facility] COUNT 5 PRIMARY HEMOGLOBI CARE N CENTER ECG 71397 [facility] ROUTINE 5 PRIMARY ECG CARE W/LEAST CENTER 12 LDS TRCG ONLY W/O I&[place] [address] [facility] PROSTATE 5 DIAGNOSTI DIAGNOSTI SPECIFIC CS CS ANTIGEN TOTAL BLOOD 42646 [facility] COUNT 5 DIAGNOSTI DIAGNOSTI COMPLETE CS CS AUTO&AUTO DIFRNTL WBC COLLECTIO 78668 [facility] N VENOUS 5 DIAGNOSTI DIAGNOSTI BLOOD CS CS VENIPUNCT URE COMPREHEN 19840 [facility] SIVE 5 DIAGNOSTI DIAGNOSTI [place] [address] [facility] THYROID 5 DIAGNOSTI DIAGNOSTI STIMULATI CS CS NG HORMONE TSH OPHTH 26232 [facility] 5 EYE HUONG XM&EVAL INSTITUTE INTERMEDI ATE ESTAB PT OPHTH 79397 [facility] 4 EYE HUONG XM&EVAL INSTITUTE INTERMEDI ATE ESTAB PT CORRECTIO 10829 [facility] N 4 EYE HUONG TRICHIASI [place] 84714 [facility] PATRICIA&/OR 4 [facility] PRESS HEART C/IRWIN RSRV TRANG 1ST VSL INTRDUCR/ C1766 [facility] SHEATH 4 W W GUID [facility] INTRACARD MEDICAL MEDICAL EP NOT PEEL-AWAY GUIDE C1769 [facility] WIRE 4 W W [facility] MEDICAL ARTERIAL 68046 [facility] PUNCTURE 4 W W WITHDRAWA [facility] L BLOOD MEDICAL MEDICAL DX R & L HRT 65466 [facility] CATH 4 [place] YOLIS WINJX HRT HEART ART& L VENTR IMG CATHETER C1887 [facility] GUIDING 4 W W [facility] MEDICAL MEDICAL BLOOD 96154 [facility] COUNT 4 W W COMPLETE [facility] AUTO&AUTO MEDICAL MEDICAL DIFRNTL WBC ECHO 35684 [facility] TTHRC R-T 4 W W 2D [facility] W/WOM-MOD MEDICAL MEDICAL E COMPL SPEC&COLR D MYOCARDIA 83039 [facility] SPECT 4 [facility] YOLIS MULTIPLE HEART STUDIES TECHNETIU A9502 JAY THOMPSON M TC-99M 4 W W TETROFOSM REGIONAL REGIONAL IN DX PER MEDICAL MEDICAL STUDY DOSE COLLECTIO 35390 [facility] N VENOUS 4 W W BLOOD REGIONAL REGIONAL VENIPUNCT MEDICAL MEDICAL URE COMPREHEN 82701 [facility] SIVE 4 W W [facility] [place] [address] [facility]OW[facility] FREE 4 W W THYROXINE [place] [address] [facility] THYROID 4 W W STIMULATI REGIONAL REGIONAL NG MEDICAL MEDICAL HORMONE TSH CV STRS 48128 [facility] TST 4 [place] YOLIS XERS&/OR HEART [place] CONT ECG I&[place] [address] [facility] MAGNESIUM 4 W W [facility] MEDICAL MEDICAL CV STRS 96365 [facility] TST 4 W W XERS&/OR REGIONAL REGIONAL RX CONT MEDICAL MEDICAL ECG TRCG ONLY ECG 51275 [facility] ROUTINE 4 PRIMARY Y BRE ECG CARE W/LEAST CENTER 12 LDS TRCG ONLY W/O I&[place] [address] [facility] PROSTATE 4 DIAGNOSTI DIAGNOSTI [place] [address] [facility] THYROID 4 DIAGNOSTI DIAGNOSTI STIMULATI CS CS NG HORMONE TSH COLLECTIO 68838 [facility] N VENOUS 4 DIAGNOSTI DIAGNOSTI BLOOD CS CS VENIPUNCT URE COMPREHEN 25673 [facility] SIVE 4 DIAGNOSTI DIAGNOSTI METABOLIC CS CS PANEL BLOOD 85695 [facility] COUNT 4 DIAGNOSTI DIAGNOSTI COMPLETE CS CS AUTO&AUTO DIFRNTL WBC OPHTH 87653 [facility] 4 EYE HUONG XM&EVAL INSTITUTE INTERMEDI ATE ESTAB PT CORRECTIO 80136 [facility] N 4 EYE HUONG TRICHIASI INSTITUTE S EPILATION FORCEPS ONLY CORRECTIO 77960 [facility] N 4 EYE HUONG TRICHIASI INSTITUTE S EPILATION FORCEPS ONLY OPHTH 21144 [facility] 4 EYE HUONG XM&EVAL [place] [address] [facility] FREE 4 DIAGNOSTI [place]AG[place] [address] [facility] THYROID 4 DIAGNOSTI DIAGNOSTI STIMULATI CS CS NG HORMONE TSH COLLECTIO 63955 [facility] N VENOUS 4 DIAGNOSTI DIAGNOSTI BLOOD CS CS VENIPUNCT URE COMPREHEN 43737 [facility] SIVE 4 DIAGNOSTI DIAGNOSTI METABOLIC CS CS PANEL REMOVAL 93317 [facility] IMPACTED 4 PRIMARY PRIMARY CERUMEN CARE CARE INSTRUMEN CENTER CENTER TATION UNILAT OPHTH 87205 [facility] 3 EYE HUONG &EVAL [place] INTERMEDI ATE ESTAB PT CORRECTIO 81528 [facility] N 3 EYE HUONG TRICHIASI [place] S EPILATION FORCEPS ONLY CORRECTIO 46047 [facility] N 3 EYE HUONG [facility] [place] S EPILATION FORCEPS ONLY OPHTH 31430 [facility] 3 EYE HUONG &EVAL [place] INTERMEDI ATE ESTAB PT INJECTION J2001 [facility] 3 W W LIDOCAINE REGIONAL REGIONAL HCL MEDICAL MEDICAL INTRAVENO US INFUS 10 MG CATARACT 65434 [facility] REMOVAL 3 W W INSERTION REGIONAL REGIONAL OF LENS MEDICAL MEDICAL OPH BMTRY 98716 [facility] 3 EYE HUONG ECHOGRAPY INSTITUTE A-SCAN IO LENS PWR JEFF OPHTH 57581 [facility] 3 GLORIA GLORIA &EVAL INTERMEDI ATE NEW PT CORRECTIO 91045 [facility] N 3 EYE HUONG TRICHIASI [place] S EPILATION FORCEPS ONLY CORRECTIO 59834 [facility] N 3 EYE HUONG TRICHIASI INSTITUTE S EPILATION FORCEPS ONLY OPHTH 42850 [facility] 3 EYE HUONG &EVAL [place] [address] [facility] FERRITIN 2 DIAGNOSTI DIAGNOSTI CS CS BLOOD 93666 [facility] COUNT 2 DIAGNOSTI DIAGNOSTI RETICULOC CS CS YTE AUTOMATED CYANOCOBA 65378 [facility] EDD 2 DIAGNOSTI DIAGNOSTI VITAMIN CS CS B-12 25 99421 [facility] HYDROXY 2 DIAGNOSTI DIAGNOSTI INCLUDES CS CS FRACTIONS IF PERFORMED BLOOD 09912 [facility] COUNT 2 DIAGNOSTI DIAGNOSTI COMPLETE CS CS AUTO&AUTO DIFRNTL WBC IRON 54863 [facility] BINDING 2 DIAGNOSTI [place] [address] [facility] FOLIC 2 DIAGNOSTI DIAGNOSTI ACID CS CS SERUM COLLECTIO 52168 [facility] N VENOUS 2 DIAGNOSTI DIAGNOSTI [place] [address] [facility] IRON 2 DIAGNOSTI DIAGNOSTI CS CS COMPREHEN 45880 [facility] SIVE 2 DIAGNOSTI DIAGNOSTI METABOLIC CS CS PANEL CORRECTIO 54045 [facility] N 2 FOR HUONG TRICHIASI EYEHLTH & S SURG P EPILATION FORCEPS ONLY OPHTH 33859 [facility] 2 FOR HUONG XM&EVAL EYEHLTH & INTERMEDI SURG P ATE ESTAB PT OPHTH 06886 [facility] 2 FOR HUONG XM&EVAL EYEHLTH & INTERMEDI SURG P ATE ESTAB PT CORRECTIO 87355 [facility] N 2 FOR HUONG TRICHIASI EYEHLTH & S [place] [address] [facility]YRO[facility] 2 [employer] [place] [address] LABORATOR LABORATOR THYROID 2 Y & Y & STIMULATI BIODIAGNO BIODIAGNO NG STICS STICS HORMONE TSH COLLECTIO 09393 LABORATOR LABORATOR N VENOUS 2 Y & Y & BLOOD BIODIAGNO BIODIAGNO VENIPUNCT STICS STICS URE COMPREHEN 73505 LABORATOR LABORATOR SIVE 2 Y & Y & METABOLIC BIODIAGNO [place]IAG[place] [address] LABORATOR LABORATOR FREE 2 Y & Y & THYROXINE BIODIAGNO BIODIAGNO STICS STICS LIPID 28209 LABORATOR LABORATOR PANEL 2 Y & Y & BIODIAGNO BIODIAGNO STICS STICS BLOOD 18744 LABORATOR LABORATOR COUNT 2 Y & Y & COMPLETE BIODIAGNO BIODIAGNO AUTO&AUTO [place] [address] LABORATOR LABORATOR TRIIODOTH 2 Y & Y & YRONINE BIODIAGNO BIODIAGNO T3 FREE STICS STICS CYANOCOBA 42571 LABORATOR LABORATOR EDD 2 Y & Y & VITAMIN BIODIAGNO BIODIAGNO B-12 STICS STICS 25 24939 LABORATOR LABORATOR HYDROXY 2 Y & Y & INCLUDES BIODIAGNO BIODIAGNO FRACTIONS STICS STICS IF PERFORMED CORRECTIO 36867 [facility] N 2 FOR HUONG TRICHIASI EYEHLTH & S SURG P EPILATION FORCEPS ONLY OPHTH 67836 [facility] 2 FOR HUONG XM&EVAL EYEHLTH & INTERMEDI SURG P ATE ESTAB PT OPHTH 89974 [facility] 2 FOR HUONG XM&EVAL EYEHLTH & INTERMEDI SURG P ATE ESTAB PT CORRECTIO 80574 [facility] N 2 FOR HUONG TRICHIASI EYEHLTH & S SURG [place] [address] LABORATOR LABORATOR SURG 1 Y & Y & PATHOLOGY BIODIAGNO BIODIAGNO STICS STICS GROSS&HERB ROSCOPIC EXAM OPHTH 88086 [facility] 1 FOR HUONG XM&EVAL EYEHLTH & INTERMEDI SURG P ATE ESTAB PT COLLECTIO 10007 [facility] N VENOUS 1 PRIMARY ALVAREZ BLOOD CARE DECALVO VENIPUNCT CENTER [facility] URE OPHTH 97601 [facility] 1 FOR HUONG XM&EVAL EYEHLTH & INTERMEDI SURG P ATE ESTAB PT CORRECTIO 77812 [facility] N 1 FOR HUONG TRICHIASI EYEHLTH & S SURG P EPILATION FORCEPS ONLY CORRECTIO [address] [place] [facility] N 1 FOR HUONG TRICHIASI EYEHLTH & S SURG P EPILATION FORCEPS ONLY OPHTH 61037 [facility] 1 FOR HUONG XM&EVAL EYEHLTH & INTERMEDI SURG P ATE ESTAB PT COLLECTIO 81691 [facility] N VENOUS 1 PRIMARY ALVAREZ BLOOD CARE DECALVO VENIPUNCT CENTER MAR URE COMPREHEN 64637 LABORATOR LABORATOR SIVE 1 Y & Y & METABOLIC BIODIAGNO [place]IAG[place] [address] LABORATOR LABORATOR FOLIC 1 Y & Y & ACID BIODIAGNO [place] [address] LABORATOR LABORATOR IRON 1 Y & Y & BIODIAGNO BIODIAGNO STICS STICS BLOOD 64094 LABORATOR LABORATOR COUNT 1 Y & Y & COMPLETE BIODIAGNO BIODIAGNO AUTO&AUTO STICS STICS DIFRNTL WBC LIPID 21220 LABORATOR LABORATOR PANEL 1 Y & Y & BIODIAGNO BIODIAGNO STICS STICS LIPOPROTE 22561 LABORATOR LABORATOR IN DIRECT 1 Y & Y & BIODIAGNO BIODIAGNO MEASUREME STICS STICS NT LDL CHOLESTER OL IRON 86572 LABORATOR LABORATOR BINDING 1 Y & Y & CAPACITY BIODIAGNO BIODIAGNO STICS STICS ORGANIC 42509 LABORATOR LABORATOR ACID 1 1 Y & Y & QUANTITAT BIODIAGNO BIODIAGNO BALAJI STICS STICS CYANOCOBA 63714 LABORATOR LABORATOR EDD 1 Y & Y & VITAMIN BIODIAGNO BIODIAGNO B-12 STICS STICS 25 89932 LABORATOR LABORATOR HYDROXY 1 Y & Y & INCLUDES BIODIAGNO BIODIAGNO FRACTIONS [place] [address] LABORATOR LABORATOR PROSTATE 1 Y & Y & SPECIFIC BIODIAGNO BIODIAGNO ANTIGEN STICS STICS TOTAL DXA BONE 13299 [facility] 1 EIDER SHAE STUDY 1/> RADIOLOGY SITES ASSOCIAT AXIAL SKEL OPHTH 06860 [facility] 1 FOR HUONG XM&EVAL EYEHLTH & INTERMEDI SURG P ATE ESTAB PT CORRECTIO 02493 [facility] N 1 FOR HUONG TRICHIASI EYEHLTH & S SURG P EPILATION FORCEPS ONLY ECG 12671 [facility] ROUTINE 1 PRIMARY ALVAREZ ECG CARE DECALVO W/LEAST CENTER MAR 12 LDS TRCG ONLY W/O I&R CORRECTIO 02785 [facility] N 0 FOR HUONG TRICHIASI EYEHLTH & S SURG P EPILATION FORCEPS ONLY OPHTH 66993 [facility] 0 FOR HUONG XM&EVAL EYEHLTH & INTERMEDI SURG P ATE ESTAB PT COMPREHEN 70515 LABORATOR LABORATOR SIVE 0 Y & Y & METABOLIC BIODIAGNO BIODIAG[place] [address] LABORATOR LABORATOR FOLIC 0 Y & Y & ACID BIODIAGNO [place] [address] LABORATOR LABORATOR [id number] 0 Y & Y & SFERRIN BIODIAGNO BIODIAGNO STICS STICS BLOOD 47525 LABORATOR LABORATOR COUNT 0 Y & Y & COMPLETE BIODIAGNO BIODIAGNO AUTOMATED STICS STICS CYANOCOBA 35716 LABORATOR LABORATOR EDD 0 Y & Y & VITAMIN BIODIAGNO BIODIAGNO B-12 STICS STICS ORGANIC 86161 LABORATOR LABORATOR ACID 1 0 Y & Y & QUANTITAT BIODIAGNO BIODIAGNO BALAJI STICS STICS CORRECTIO 88636 [facility] N 0 FOR HUONG TRICHIASI EYEHLTH & S SURG P EPILATION FORCEPS ONLY OPHTH 04231 [facility] MEDICAL 0 FOR HUONG XM&EVAL EYEHLTH & INTERMEDI SURG P ATE ESTAB PT OPHTH 18832 [facility] MEDICAL 0 FOR HUONG XM&EVAL EYEHLTH & INTERMEDI SURG P ATE ESTAB PT COLLECTIO 76630 [facility] N VENOUS 0 W W BLOOD [facility] COMPREHEN 47318 [facility]OW[facility] SIVE 0 W [facility] PANEL [facility] BLOOD 79909 [facility] COUNT 0 W W COMPLETE [facility] AUTO&AUTO MEDICAL MEDICAL DIFRNTL JENER[facility] CENTER WBC BILIRUBIN 36120 [facility] DIRECT 0 W W [facility] CORRECTIO 93367 [place] [facility] [place] N 0 FOR , MARTHA Benitez TRICHIASI EYEHLTH & S SURG PSC EPILATION FORCEPS ONLY OPHTH 13414 [facility] MEDICAL 0 FOR , MARTHA Benitez XM&EVAL EYEHLTH & INTERMEDI SURG PSC ATE ESTAB PT OPHTH 84851 [facility] MEDICAL 0 FOR , MARTHA L XM&EVAL EYEHLTH & INTERMEDI SURG PSC ATE ESTAB PT INJECTION 74466 [facility], CARDIAC 0 [facility]LEY HIWOT R CATHJ L HEART VENTR/L ATR ANGIOGRAP H PLCMT [id number] [facility] OCCL DEVC 0 W W REGIONAL REGIONAL SAMUEL/ART MEDICAL MEDICAL [facility] SURG/INTR VNL PROC INJECTION J3010 [facility] FENTANYL 0 W W CIT[place] REGIONAL REGIONAL 0.1 MG [facility] UNCLASSIF J3490 [facility] IED DRUGS 0 W W REGIONAL [facility] CENTER INJECTION J2250 [facility] 0 W W [place] REGIONAL REGIONAL HCL PER MEDICAL MEDICAL 1 [place] [address] [place] [facility], C-CATHJ 0 [place] HIWOT R F/SLCTV C HEART ANGRPH I SI&R 77998 [facility], F/NJX PX 0 [facility] HIWOT R DURING HEART C-CATHJ PULM&/OR SELECT LOCM Q9967 [facility] [phone] W W MG/ML REGIONAL REGIONAL IODINE [facility] MEDICAL CON[facility] TION PER ML I SI&R 13138 [facility], F/NJX PX 0 VALLEY HIWOT R DURING HEART C-CATHJ VENTR&/AT R ANGRPH L HRT 16897 [facility], CATHETERI 0 VALLEY HIWOT R ZATION HEART RETROGRAD E BRACHIAL PERQ INJECTION J2001 [facility] 0 W W LIDOCAINE REGIONAL REGIONAL HCL MEDICAL MEDICAL INTRAVENO [facility] US INFUS 10 MG ECG 17912 [facility]ADOWVIE ROUTINE 0 W W ECG REGIONAL REGIONAL W/LEAST MEDICAL MEDICAL 12 [facility] TRCG ONLY W/O I&R COLLECTIO 79601 MEAWVIE MEADOWVIE N VENOUS 0 W W BLOOD REGIONAL REGIONAL VENIPUNCT MEDICAL MEDICAL [facility] BLOOD 10654 MEADOWVIE MEADOWVIE COUNT 0 W W COMPLETE REGIONAL REGIONAL AUTO&AUTO MEDICAL MEDICAL DIFRNTL [facility] WBC BASIC 67625 JAY THOMPSON METABOLIC 0 W W PANEL REGIONAL REGIONAL CALCIUM [facility]ICAL MEDICAL TOTAL CENTER CENTER MYOCARDIA 64011 Emmanuel MERINO SPECT 0 [facility] HIWOT R MULTIPLE HEART STUDIES CV STRS 54335 RODRÍGUEZ EDUARDO, TST 0 [facility] HI[facility]OT R XERS&/OR HEART RX CONT ECG I&R ONLY TECHNETIU A9502 JAY THOMPSON M TC-99M 0 W W TETROFOSM REGIONAL REGIONAL IN DX PER MEDICAL MEDICAL STUDY CENTER CENTER DOSE CV STRS 70433 RODRÍGUEZ EDUARDO, TST 0 [facility] HIWOT R XERS&/OR HEART RX CONT ECG W/O I&R CV STRS 77273 JAY THOMPSON TST 0 W W XERS&/OR REGIONAL REGIONAL RX CONT MEDICAL MEDICAL ECG TRCG CENTER CENTER ONLY OPHTH 34474 [facility] 0 FOR , MARTHA L XM&EVAL EYEHLTH & INTERMEDI SURG PSC ATE ESTAB PT CV STRS 14245 [place] JAYCE TST 0 [facility] YOLIS XERS&/OR HEART RX CONT ECG I&R ONLY ECHO 47225 [place] ANNE TTHRC R-T 0 VALLEY N, 2D HEART RAGHURAMA W/WOM-MOD N E COMPL SPEC&COLR D CV STRS 26241 JAY THOMPSON TST 0 W W XERS&/OR REGIONAL REGIONAL RX CONT MEDICAL MEDICAL ECG TRCG CENTER CENTER ONLY CV STRS 21945 [place] AJYCE TST 0 [place] YOLIS XERS&/OR HEART RX CONT ECG W/O I&R 25 99634 LABORATOR LABORATOR HYDROXY 0 Y & Y & INCLUDES BIODIAGNO BIODIAGNO FRACTIONS STICS STICS IF PERFORMED CYANOCOBA 98295 LABORATOR LABORATOR EDD 0 Y & Y & VITAMIN BIODIAGNO BIODIAGNO B-12 [place] [address] LABORATOR LABORATOR FERRITIN 0 Y & Y & BIODIAGNO BIODIAGNO STICS STICS BLOOD 96389 LABORATOR LABORATOR COUNT 0 Y & Y & COMPLETE BIODIAGNO BIODIAGNO AUTO&AUTO STICS STICS DIFRNTL WBC IRON 37704 LABORATOR LABORATOR BINDING 0 Y & Y & CAPACITY BIODIAGNO BIODIAGNO STICS STICS COLLECTIO 56402 [facility] N VENOUS 0 PRIMARY ALV[facility]Z BLOOD CARE DECALVO, VENIPUNCT CENTERINC KYA URE OPAL V COMPREHEN 74742 LABORATOR LABORATOR SIVE 0 Y & Y & METABOLIC BIODIAGNO BI[place] [address] LABORATOR LABORATOR FOLIC 0 Y & Y & ACID BIODIAGNO BI[place] [address] LABORATOR LABORATOR IRON 0 Y & Y & BIODIAGNO BIODIAGNO STICS STICS OPHTH 69434 [facility] 0 FOR , MARTHA Benitez XM&EVAL EYEHLTH & INTERMEDI SURG PSC ATE ESTAB PT CORRECTIO 34146 [facility] N 0 FOR , MARTHA Benitez TRICHIASI EYEHLTH & S SURG PSC EPILATION FORCEPS ONLY ECG 59029 [facility] DEL ROUTINE 0 PRIMARY ALVAREZ ECG CARE DECALVO, W/LEAST CENTERINC KYA 12 LDS OPAL V TRCG ONLY W/O I&R CORRECTIO 63936 [facility] N 0 FOR , MARTHA Benitez TRICHIASI EYEHLTH & S SURG PSC EPILATION FORCEPS ONLY OPHTH 58933 [facility] 0 FOR , MARTHA Benitez XM&EVAL EYEHLTH & INTERMEDI SURG PSC ATE ESTAB PT CORRECTIO 18157 [facility] N 9 FOR , MARTHA Benitez TRICHIASI EYEHLTH & S SURG PSC EPILATION FORCEPS ONLY OPHTH 46641 [facility] 9 FOR , MARTHA Benitez XM&EVAL EYEHLTH & INTERMEDI SURG PSC ATE ESTAB PT COMPREHEN 86629 [facility] S[facility] 9 [facility] METABOLIC PANEL COLLECTIO [address] [facility] DEL N VENOUS 9 [facility] DECALVO, VENIPUNCT CENTERINC KYA URE OPAL V BLOOD 89822 [facility] COUNT 9 [facility] COMPLETE AUTO&AUTO DIFRNTL WBC OPHTH 28211 [facility] 9 MARTHA TELLES XM&EVAL EYEHLTH & INTERMEDI SURG PSC ATE ESTAB PT CORRECTIO 09453 [facility] N 9 MARTHA TELLES EYEHLTH & S SURG PSC EPILATION FORCEPS ONLY OPHTH 30591 [facility] 9 MARTHA TELLES XM&EVAL EYEHLTH & INTERMEDI SURG PSC ATE ESTAB PT RADIOLOGI 08512 [facility] EXAM 9 EIDER, CHEST 2 RADIOLOGY MIKAYLA VIEWS K FRONTAL&L ASSOCIATE ATERAL S PSC URNLS DIP 67601 [facility] 9 [facility] STICK/TAB [place] [address] [facility] HAPTOGLOB 9 [facility] [place] [address] [facility] FOLIC 9 [facility] ACID RBC PROSTATE [id number] [facility] CANCER 9 [facility] SCREENING ; PSA TEST BLOOD 44315 [facility] COUNT 9 [facility] COMPLETE AUTO&[place] [address] [facility] THYROID 9 [facility] STIMULATI NG HORMONE TSH COMPREHEN 05699 [facility] SIVE 9 [facility] METABOLIC PANEL 25 49902 [facility] HYDROXY 9 [facility] INCLUDES FRACTIONS IF PERFORMED CYANOCOBA 97284 [facility] EDD 9 [facility] VITAMIN B-12 CORRECTIO 86025 [facility] N 9 FOR MARTHA EYEHLTH & S SURG PSC EPILATION FORCEPS ONLY HEPATIC 17586 [facility] FUNCTION 9 W [facility] BLOOD 80382 [facility] MEADOWV[facility] COUNT 9 W W [facility] AUTO&AUTO MEDICAL MEDICAL DIFRNTL [facility] WBC COLLECTIO 59817 [facility] MEADOW[facility] N VENOUS 9 W W BLOOD REGIONAL [facility]AL VENIPUNCT MEDICAL [facility] URE CENTER CENTER OPHTH 57558 [facility] 9 MARTHA TELLES XM&EVAL EYEHLTH & INTER[place] [address] PATHOLOGY PATHOLOGY SURG 9 & & PATHOLOGY CYTOLOGY CYTOLOGY LAB LAB GROSS&HERB ROSCOPIC EXAM EXCISION 41852 SANDY DELGADO MALIGNANT 9 , KIM , KIM LESION S/N/H/F/G 0.6-1.0 CM COLLECTIO 55460 [facility] N VENOUS 9 [facility] BLOOD VENIPUNCT URE OPHTH 33099 [facility] 9 MARTHA TELLES XM&EVAL EYEHLTH & INTERMEDI SURG PSC ATE ESTAB PT BLOOD 97255 [facility] COUNT 9 [facility] COMPLETE AUTO&AUTO DIFRNTL WBC HEPATIC 19991 [facility] FUNCTION 9 [facility] PANEL BLOOD 45824 [facility] COUNT 9 [facility] COMPLETE HOLDING HOLDING AUTO&AUTO DIFRNTL WBC PROTEIN 13165 [facility] XCPT 9 AMERIC AMERIC REFRACTOM HOLDING HOLDING ETRY SERUM PLASMA/WH L BLD ALBUMIN 20795 [facility] SERUM 9 AMERIC AMERIC PLASMA/WH HOLDING HOLDING OLE BLOOD BILIRUBIN 30092 [facility] TOTAL 9 [facility] HOLDING GLUCOSE 17234 [facility] QUANTITAT 9 AMERIC AMERIC BALAJI BLOOD HOLDING HOLDING XCPT REAGENT STRIP BX SKIN 55414 UNIV[facility] TERESA, SUBCUTANE 9 Y ASSOC SPENCER P OUS&/MUCO DERMATOLO US GY MEMBRANE 1 LESION COL-CHR/M 15851 [facility] S NONDRUG 9 AMERIC AMERIC ANALYTE HOLDING HOLDING LEV QUAL/ROYA EA SPEC CHLORIDE 88002 [facility] BLD 9 [facility] HOLDING POTASSIUM 75580 [facility] SERUM 9 AMERIC AMERIC PLASMA/WH HOLDING HOLDING OLE BLOOD CREATININ 17341 [facility] E BLOOD 9 [facility]ING HOLDING TRANSFERA 17232 [facility] SE 9 AMERIC AMERIC ASPARTATE HOLDING HOLDING AMINO AST SGOT CALCIUM 55877 [facility] TOTAL 9 [facility]IC [employer] [facility]ING HOLDING GLUC-6-PH 97161 [facility] OSPHATE 9 AMERIC AMERIC DEHYDROGE HOLDING [place] [address] [facility] UREA 9 AMERIC AMERIC NITROGEN HOLDING HOLDING QUANTITAT BAL[place]I COLLECTIO 09785 [facility] N VENOUS 9 AMERIC AMERIC BLOOD HOLDING HOLDING VENIPUNCT URE SODIUM 44250 [facility] SERUM 9 AMERIC AMERIC PLASMA [place] [address] [facility] PHOSPHATA 9 AMERIC AMERIC [place] [address] UNIVERSIT TERESA, LIP 9 Y ASSOC SPENCER Miller DERMATOLO GY OPHTH 59782 [facility] 9 FOR , MARTHA Benitze XM&EVAL EYEHLTH & INTERMEDI SURG [facility] ATE ESTAB PT CT THORAX [address] [place] DEE, 9 IGLESIA Zabala/CONTRAS RADIOLOGY T MATERIAL ASSOCIATE S [facility] 3D 38084 [place] PRICE, RENDERING 9 IGLESIA Zabala/INTERP RADIOLOGY & POSTPROCE ASSOCIATE SS S [facility] SUPERVISI ON INJECTION J0690 ME[facility] MEADOW[facility]IE 9 W W CEFAZOLIN REGIONAL REGIONAL SODIUM MEDICAL MEDICAL 500 [facility] INJECTION J2250 MEADOWVIE MEADOWVIE 9 W W MIDAZOLAM REGIONAL REGIONAL HCL PER MEDICAL MEDICAL 1 [facility] MESH C1781 MEADOW[facility]IE MEADOWVIE 9 W W REGIONAL REGIONAL MEDICAL MEDICAL [facility] LAPAROSCO 79903 MEADOWVIE MEADOWVIE PY SURG 9 W W RPR REGIONAL REGIONAL INITIAL MEDICAL MEDICAL INGUINAL CENTER CENTER HERNIA RINGERS J7120 MEADOW[facility]IE MEADOWVIE LACTATE 9 W W INFUSION REGIONAL REGIONAL UP TO MEDICAL MEDICAL 1000 CC [facility] ANESTHESI 16075 [facility] A HERNIA 9 [facility] , CELESTE REPAIR ANESTHESI LOWER A [facility] ABDOMEN NOS INJECTION J3010 MEADOW[facility]IE MEADOWVIE FENTANYL 9 W W CITRATE REGIONAL REGIONAL 0.1 [facility] CENTER COLLECTIO 78784 MEADOWVIE MEADOWVIE N VENOUS 9 W W BLOOD REGIONAL REGIONAL VENIPUNCT MEDICAL MEDICAL URE CENTER CENTER COMPREHEN 08014 MEADOWSHAE MEADOWVIE SIVE 9 W W METABOLIC REGIONAL REGIONAL PANEL [facility] MEDICAL [facility] BLOOD 74455 MEADOW[facility]IE MEADOWVIE COUNT 9 W W COMPLETE REGIONAL REGIONAL AUTO&AUTO MEDICAL MEDICAL DIFRNTL CENTER CENTER WBC URNLS DIP 54431 [facility] MEADOW[facility]IE 9 W W STICK/TAB REGIONAL REGIONAL LET MEDICAL MEDICAL REAGENT [facility] AUTO MICROSCOP Y RADIOLOGI 78396 ME[facility]IE MEADOWVIE C EXAM 9 W W CHEST 2 REGIONAL REGIONAL VIEWS [facility] FRONTAL&L [facility] ATERAL ECG 01342 MEADOW[facility]IE MEADOWVIE ROUTINE 9 W W ECG REGIONAL REGIONAL W/LEAST MEDICAL MEDICAL 12 [facility] TRCG ONLY W/O I&R OPH BMTRY 23213 [facility] 9 FOR , MARTHA Benitez ECHOGRAPY EYEHLTH & A-SCAN SURG PSC IO LENS PWR JEFF OPHTH 86140 [facility] 9 FOR , MARTHA Benitez XM&EVAL EYEHLTH & COMPRHNSV SURG PSC ESTAB PT 1/> OPHTH 93487 [facility] 8 FOR , MARTHA Benitez XM&EVAL EYEHLTH & INTERMEDI SURG PSC ATE ESTAB PT OPHTH 96653 [facility] 8 FOR , MARTHA Benitez XM&EVAL EYEHLTH & COMPRE SURG PSC NEW PT 1/> VST OPHTH 63514 RUDI RGIJALVA, MEDICAL 8 MURALI CARRION XM&EVAL COMPRHNSV ESTAB PT 1/> FUNDUS 42811 RUDI GRIJALVA, PHOTOGRAP 8 MURALI CARRION HY W/INTERPR ETATION & REPORT Encounters Encounter Start End Date Code Location Performer Type Date OFFICE 85987 [facility] OUTPATIEN 5 5 PRIMARY T VISIT [facility]ARE 15 CENTER MINUTES OFFICE 54194 [facility] OUTPATI[facility] 5 5 PRIMARY T VISIT CARE 15 CENTER MINUTES OFFICE 18799 SHEYLA CARRION OUTPATIEN 4 4 ABR ABR T VISIT 15 MINUTES HOSPITAL [facility] - 4 4 W OUTPATIEN [facility] 32627 [facility] 4 4 PRIMARY T VISIT CARE 25 CENTER MINUTES OFFICE 14852 [facility] OUTPATIEN 4 4 PRIMARY T VISIT CARE 25 CENTER MINUTES HOSPITAL MEADOWVIE - 3 3 W OUTPATIEN [facility] T MEDICAL OFFICE 17426 [facility] OUTPATIEN 3 3 PRIMARY T VISIT CARE 15 CENTER MINUTES OFFICE 82182 [facility] OUTPATIEN 2 2 PRIMARY T VISIT CARE 25 CENTER MINUTES OFFICE 41666 [facility] OUTPATIEN 2 2 PRIMARY T VISIT CARE 25 CENTER MINUTES OFFICE 40766 [facility] OUTPATIEN 1 1 PRIMARY T VISIT CARE 10 CENTER MINUTES OFFICE 03497 [facility] DEL OUTPATIEN 1 1 PRIMARY ALVAREZ T VISIT CARE DECALVO 15 CENTER MAR MINUTES OFFICE 61241 [facility] OUTPATIEN 1 1 PRIMARY T VISIT CARE 15 CENTER MINUTES OFFICE 35319 [facility] OUTPATIEN 1 1 PRIMARY T VISIT CARE 15 CENTER MINUTES OFFICE 04121 [facility] OUTPATIEN 1 1 PRIMARY T VISIT CARE 15 CENTER MINUTES [facility]OSP[facility] - [facility] 47050 [place] OUT[facility] 1 1 [place] [facility] 45 HEART MINUTES OFFICE 41896 [facility] OUTPATIEN 1 1 PRIMARY T VISIT CARE 15 CENTER MINUTES OFFICE 04362 [facility] OUTPATIEN 0 0 PRIMARY T VISIT CARE 15 CENTER MINUTES [facility] 0 0 W [facility] OFF[facility] 35430 [facility] OUTPATIEN 0 0 [facility] T VISIT HEART 25 MINUTES HOSPITAL MEADOWVIE - 0 0 W [facility] MEADOWVIE - 0 0 W [facility] MEADOWVIE - 0 0 W [facility] OFFICE 17684 [facility] OUTPATIEN 0 0 [facility] FREE 0 0 [facility] FREE 0 0 [facility] OFFICE 25016 [facility] OUTPATIEN 0 0 PRIMARY T VISIT CARE 15 CENTERINC MINUTES OFFICE 39649 [facility] OUTPATIEN 0 0 PRIMARY T VISIT CARE 15 CENTERINC [facility], [facility] FREE 0 0 [facility] OFFICE 26188 [facility] OUTPATIEN 9 9 PRIMARY T VISIT CARE 15 CENTERINC MINUTES CLINIC, [facility] FREE 9 9 [facility], [facility] FREE 9 9 [facility] OFFICE 67251 [facility] OUTPATIEN 9 9 PRIMARY T VISIT CARE [facility] MINUTES [facility], [facility] FREE 9 9 [facility] OFFICE 87151 [facility] OUTPATIEN 9 9 PRIMARY T VISIT 5 CARE MINUTES [facility] MEADOWVIE - 9 9 [facility] FREE 9 9 [facility] OFFICE 47362 [facility] OUTPATIEN 9 9 PRIMARY T VISIT CARE 25 [facility] MEADOWVIE - 9 9 [facility] 60104 SANDY DELGADO CONSULTAT 9 9 , KIM ALVAREZ ION NEW/ESTAB PATIENT 40 MIN OFFICE 76942 [facility], CONSULTAT 9 9 Y ASSOC SPENCER Miller ION DERMATOLO NEW/ESTAB GY PATIENT 40 MIN HOSPITAL MEADOWVIE - 9 9 W [facility] MEADOWSHAE - 9 9 W [facility] CL[facility], [facility] FREE 9 9 [facility] OFFICE 02771 [facility] OUTPATIEN 9 9 PRIMARY [facility] 20 CARE [facility] OFFICE 08757 [facility] OUTPATIEN 9 9 MARTHA TELLES T VISIT EYEHLTH & 15 SURG PSC MINUTES OFFICE 37317 RUDI GRIJALVA OUTPATIEN 8 8 MURALI CARRION T VISIT 10 MINUTES
--- OUTSIDE RECORDS SUMMARY | 2016-07-19 23:31 | External Medical Summary Rpt ---
Author Author , Organization [employer] Address Unknown Phone Unavailable Care Team Providers Care Cryptozoologist Name Role Phone RUDI MURALI, Unavailable Unavailable [...] ABR SHEYLA ABR, SHEYLA Unavailable Unavailable [facility], [facility] & Un[facility] Unavailable [facility], [place] [facility] Unavailable Unavailable [facility], [facility], Unavailable Unavailable [facility] & Unavailable [facility]available [facility] & Unavailable Unavailable [facility] Unavailable Unavailable [facility] Unavailable Unavailable [facility] JAYCE RIVERA Unavailable Unavailable [facility], Unavailable Unavailable [facility], Unavailable Unavailable DANIELLE DÍAZ [facility] Unavailable Unavailable MEDICAL, [facility] Unavailable Unavailable MEDICAL CENTER, [facility], Unavailable Unavailable [facility] Unavailable Unavailable LAB, [...] DOS Provider Status 2449 UNSPECIFIED 04-05-2014 [facility] ISM 4279 UNSPECIFIED 04-05-2014 [facility] CARDIAC PRIMARY DYSRHYTHMIA CARE CENTER 20195 OTHER 04-05-2014 [facility] MALAISE AND PRIMARY FATIGUE CARE CENTER 3688 OTHER 02-23-2014 [facility] SPECIFIED DIAGNOSTICS VISUAL DISTURBANCE S 31182 PAIN IN OR 02-23-2014 [facility] AROUND EYE DIAGNOSTICS 25682 URINARY 02-23-2014 [facility] FREQUENCY DIAGNOSTICS 78957 NONSPECIFIC 02-23-2014 [facility] ABNORMAL DIAGNOSTICS UNSPEC CV FUNCTION STUDY V7791 SCREENING 02-23-2014 [facility] FOR LIPOID DIAGNOSTICS DISORDERS 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 00312 JL MUCOUS 02-22-2014 [facility] PEMPHIGOID [place] W/OCULAR INVLV 4149 UNSPECIFIED 10-15-2013 [facility] CHRONIC ISCHEMIC HEART DISEASE 02012 OTHER 10-15-2013 [facility] SPECIFIED CARDIAC DYSRHYTHMIA S 2859 UNSPECIFIED 10-07-2013 [facility] ANEMIA [facility]AL MEDICAL 4139 OTHER AND 10-07-2013 [facility] UNSPECIFIED HEART ANGINA PECTORIS 29318 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 [facility] ATHEROSCLER [facility]AL [place] [facility] CORONARY ARTERY 4280 CONGESTIVE 10-07-2013 [facility] HEART HEART FAILURE UNSPECIFIED 42192 CHEST PAIN 10-07-2013 [facility] UNSPECIFIED REGIONAL MEDICAL 12506 OTH 10-07-2013 [facility] NONSPECIFIC HEART ABNORM CV SYSTEM FUNCTION STUDY 16356 SHORTNESS 09-17-2013 [facility] [facility] 13401 NONSPECIFIC 09-17-2013 [facility] ABNORMAL HEART ELECTROCARD IOGRAM 39412 ANEMIA OF 09-07-2013 [facility] OTHER DIAGNOSTICS CHRONIC DISEASE 7804 DIZZINESS 09-07-2013 [facility] AND PRIMARY GIDDINESS CARE CENTER 7840 HEADACHE 09-07-2013 [facility] DIAGNOSTICS V5869 LONG-TERM 09-07-2013 [facility] (CURRENT) DIAGNOSTICS USE OF OTHER MEDICATIONS V431 LENS 04-24-2013 [place] [facility] OTHER INSTITUTE MEANS 2469 UNSPECIFIED 03-05-2013 [facility] DISORDER DIAGNOSTICS OF THYROID 2689 UNSPECIFIED 03-05-2013 [facility] VITAMIN D DIAGNOSTICS DEFICIENCY 75293 UNSPECIFIED 03-05-2013 [facility] DISORDER DIAGNOSTICS OF EYE 3804 IMPACTED 03-05-2013 [facility] CERUMEN DIAGNOSTICS 68256 DISORDER OF 03-05-2013 [facility] BONE AND DIAGNOSTICS CARTILAGE UNSPECIFIED V851 BODY MASS 03-05-2013 [facility] INDEX DIAGNOSTICS BETWEEN 19-24 ADULT 38030 NUCLEAR 09-18-2012 [facility] 3669 UNSPECIFIED 09-18-2012 [facility] CATARACT [facility] 00580 UNSPECIFIED 09-10-2012 [facility] INTERSTITIA L KERATITIS 24499 SCARRING OF 09-10-2012 [facility] CONJUNCTIVA 58227 UNSPECIFIED 09-10-2012 [facility] ABNORMAL PUPILLARY FUNCTION 2662 OTHER 01-30-2012 [facility] B-COMPLEX PRIMARY DEFICIENCIE CARE CENTER S 2669 UNSPECIFIED 01-30-2012 [facility] VITAMIN B DIAGNOSTICS DEFICIENCY 5225 PERIAPICAL 06-18-2011 [facility] ABSCESS PRIMARY WITHOUT CARE CENTER SINUS 62083 UNSPECIFIED 06-18-2011 [facility] PRIMARY OSTEOPOROSI CARE [...] & LENIN BIODIAGNOST ICS V8281 SPECIAL 03-27-2010 [facility] SCREENING REGIONAL FOR MEDICAL OSTEOPOROSI S 7851 PALPITATION 02-13-2010 [facility] S HEART 51482 BLEPHAROPHI 01-09-2010 [place] [facility] E[facility] & SURG P 2800 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 BIODIAGNOST SECONDARY ICS TO BLOOD LOSS 4011 ESSENTIAL 06-13-2009 [facility] HYPERTENSIO REGIONAL N, [facility] 2692 UNSPECIFIED 04-05-2009 [facility] VITAMIN PRIMARY DEFICIENCY CARE CENTERINC 26195 UNSPECIFIED 03-07-2009 [place] [facility] [place]NEAL E[facility] & OPACITY SURG PSC V7644 SPECIAL 02-23-2009 [facility] SCREENING PRIMARY MALIGNANT CARE NEOPLASM OF CENTERINC PROSTATE V7651 SPECIAL 02-23-2009 [facility] SCREENING PRIMARY FOR CARE MALIGNANT CENTERINC NEOPLASMS COLON 4940 BRONCHIECTA 10-26-2008 [facility] SIS WITHOUT RADIOLOGY ACUTE ASSOCIATES EXACERBATIO PSC N 7862 COUGH 10-26-2008 [facility] 2324 CARCINOMA 10-01-2008 PATHOLOGY & IN SITU OF CYTOLOGY SCALP AND LAB SKIN OF NECK 1733 OTH MALIG 09-30-2008 [facility], NEOPLASM KIM SKIN OTH & UNS PARTS FACE V1083 PERSONAL 09-30-2008 [facility], HISTORY KIM OTHER MALIGNANT NEOPLASM SKIN 1734 OTHER 09-02-2008 [facility] NEOPLASM OF DERMATOLOGY SCALP & SKIN OF NECK 6944 PEMPHIGUS 09-02-2008 [facility] 6948 OTHER 09-02-2008 [place] SPECIFIED ASSOC BULLOUS DERMATOLOGY DERMATOSIS 4928 OTHER 07-09-2008 [facility] EMPHYSEMA RADIOLOGY ASSOCIATES PSC 00547 OTHER 07-09-2008 [facility] [place] DISEASES OF RADIOLOGY LUNG NOT ASSOCIATES ELSEWHERE PSC CLASSIFIED 7856 ENLARGEMENT 07-09-2008 [facility] [place] OF LYMPH RADIOLOGY NODES ASSOCIATES PSC 40742 ING VANITA 06-22-2008 [place] W/O MENTION H ANESTHESIA OBST/GANGRE PSC N UNILAT/UNSP EC 496 CHRONIC 06-21-2008 [facility] AIRWAY RADIOLOGY OBSTRUCTION ASSOCIATES NEC PSC 22988 ING VANITA 06-21-2008 [facility] W/O REGIONAL OBST/GANGRE MEDICAL N RECUR CENTER UNILAT/UNS V1201 PERSONAL 06-21-2008 [facility] HISTORY OF REGIONAL TUBERCULOSI MEDICAL S [place] V7284 UNSPECIFIED 06-21-2008 [facility] PRE-OPERATI MEDICAL VE CENTER EXAMINATION 5539 VANITA UNS 06-14-2008 [facility] SITE ABD PRIMARY CAV W/O CARE MENTION CENTERINC OBST/GANGRE N 51795 UNSPECIFIED 06-09-2007 [facility] PTOSIS OF MURALI EYELID 95813 DERMATOCHAL 06-09-2007 [facility] ASIS MURALI 68417 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 Procedures Procedure DOS Code Location Performer Comment BLOOD 47592 [facility] MA[facility]ATH[facility] COUNT 5 PRIMARY HEMOGLOBI CARE N CENTER ECG 57681 [facility] ROUTINE 5 PRIMARY ECG CARE W/LEAST CENTER 12 LDS TRCG ONLY W/O I&[place] [address] [facility] PROSTATE 5 DIAGNOSTI DIAGNOSTI SPECIFIC CS CS ANTIGEN TOTAL BLOOD 48548 [facility] COUNT 5 DIAGNOSTI DIAGNOSTI COMPLETE CS CS AUTO&AUTO DIFRNTL WBC COLLECTIO 42723 [facility] N VENOUS 5 DIAGNOSTI DIAGNOSTI BLOOD CS CS VENIPUNCT URE COMPREHEN 87245 [facility] SIVE 5 DIAGNOSTI DIAGNOST[place] [address] [facility] THYROID 5 DIAGNOSTI DIAGNOSTI STIMULATI CS CS NG HORMONE TSH OPHTH 13200 [facility] 5 EYE HUONG XM&EVAL INSTITUTE INTERMEDI ATE ESTAB PT OPHTH 67825 [facility] 4 EYE HUONG XM&EVAL INSTITUTE INTERMEDI ATE ESTAB PT CORRECTIO 43699 [facility] N 4 EYE HUONG TRICHIASI [place] D[place] [address] [facility] PATRICIA&/OR 4 [facility] PRESS HEART C/IRWIN RSRV TRANG 1ST VSL INTRDUCR/ C1766 [facility] SHEATH 4 W W GUID [facility] INTRACARD MEDICAL MEDICAL EP NOT PEEL-AWAY GUIDE C1769 [facility] WIRE 4 W W [facility] MEDICAL ARTERIAL 54826 [facility] PUNCTURE 4 W W WITHDRAWA [facility] L BLOOD MEDICAL MEDICAL DX R & L HRT 05476 [facility] CATH 4 RIVERVIEW YOLIS WINJX HRT HEART ART& L VENTR IMG CATHETER C1887 [facility] GUIDING 4 W [facility] MEDICAL MEDICAL BLOOD 12680 [facility] COUNT 4 W W COMPLETE [facility] AUTO&AUTO MEDICAL MEDICAL DIFRNTL WBC ECHO 46221 [facility] TTHRC R-T 4 W W 2D [facility] W/WOM-MOD MEDICAL MEDICAL E COMPL SPEC&COLR D MYOCARDIA 66418 [facility] SPECT 4 VALLEY YOLIS MULTIPLE HEART STUDIES TECHNETIU A9502 JAY THOMPSON M TC-99M 4 W W TETROFOSM REGIONAL REGIONAL IN DX PER MEDICAL MEDICAL STUDY DOSE COLLECTIO 27819 [facility] N VENOUS 4 W W BLOOD REGIONAL REGIONAL VENIPUNCT MEDICAL MEDICAL URE COMPREHEN 23544 [facility] SIVE 4 W W METABOLIC REGIONAL [facility] [place] [address] [facility] FREE 4 W W THYROXINE [facility] [place] [address] [facility] THYROID 4 W W STIMULATI REGIONAL REGIONAL NG MEDICAL MEDICAL HORMONE TSH CV STRS 94532 [facility] TST 4 VALLEY YOLIS XERS&/OR HEART RX CONT ECG I&[place] [address] [facility] MAGNESIUM 4 W W [facility] MEDICAL MEDICAL CV STRS 70747 [facility] TST 4 W W XERS&/OR REGIONAL REGIONAL RX CONT MEDICAL MEDICAL ECG TRCG ONLY ECG 09991 [facility] ROUTINE 4 PRIMARY Y BRE ECG CARE W/LEAST CENTER 12 LDS TRCG ONLY W/O I&[place] [address] [facility] PROSTATE 4 DIAGNOSTI DIAGNOSTI [place] [address] [facility] THYROID 4 DIAGNOSTI DIAGNOSTI STIMULATI CS CS NG HORMONE TSH COLLECTIO 04613 [facility] N VENOUS 4 DIAGNOSTI DIAGNOSTI BLOOD CS CS VENIPUNCT URE COMPREHEN 72936 [facility] SIVE 4 DIAGNOSTI DIAGNOSTI METABOLIC CS CS PANEL BLOOD 85208 [facility] COUNT 4 DIAGNOSTI DIAGNOSTI COMPLETE CS CS AUTO&AUTO DIFRNTL WBC OPHTH 49101 [facility] 4 EYE HUONG XM&EVAL INSTITUTE INTERMEDI ATE ESTAB PT CORRECTIO 75177 [facility] N 4 EYE HUONG TRICHIASI INSTITUTE S EPILATION FORCEPS ONLY CORRECTIO 96853 [facility] N 4 EYE HUONG TRICHIASI INSTITUTE S EPILATION FORCEPS ONLY OPHTH 16998 [facility] 4 EYE HUONG XM&EVAL [place] [address] [facility] FREE 4 DIAGNOSTI [place]AG[place] [address] [facility] THYROID 4 DIAGNOSTI DIAGNOSTI STIMULATI CS CS NG HORMONE TSH COLLECTIO 37745 [facility] N VENOUS 4 DIAGNOSTI DIAGNOSTI BLOOD CS CS VENIPUNCT URE COMPREHEN 26831 [facility] SIVE 4 DIAGNOSTI DIAGNOSTI METABOLIC CS CS PANEL REMOVAL 92676 [facility] IMPACTED 4 PRIMARY PRIMARY CERUMEN CARE CARE INSTRUMEN CENTER CENTER TATION UNILAT OPHTH 06093 [facility] 3 EYE HUONG &EVAL [place] INTERMEDI ATE ESTAB PT CORRECTIO 95223 [facility] N 3 EYE HUONG TRICHIASI [place] S EPILATION FORCEPS ONLY CORRECTIO 22600 [facility] N 3 [facility] [place] [facility] EPILATION FORCEPS ONLY OPHTH 73613 [facility] 3 EYE HUONG &EVAL [place] INTERMEDI ATE ESTAB PT INJECTION J2001 [facility] 3 W W LIDOCAINE REGIONAL REGIONAL HCL MEDICAL MEDICAL INTRAVENO US INFUS 10 MG CATARACT 05746 [facility] REMOVAL 3 W W INSERTION REGIONAL REGIONAL OF LENS MEDICAL MEDICAL OPH BMTRY 96389 [facility] 3 EYE HUONG ECHOGRAPY INSTITUTE A-SCAN IO LENS PWR JEFF OPHTH 37388 [facility] 3 GLORIA GLORIA &EVAL INTERMEDI ATE NEW PT CORRECTIO 58481 [facility] N 3 EYE HUONG TRICHIASI [place] S EPILATION FORCEPS ONLY CORRECTIO 69669 [facility] N 3 EYE HUONG TRICHIASI INSTITUTE S EPILATION FORCEPS ONLY OPHTH 26903 [facility] 3 EYE HUONG &EVAL [place] [address] [facility] FERRITIN 2 DIAGNOSTI DIAGNOSTI CS CS BLOOD 30047 [facility] COUNT 2 DIAGNOSTI DIAGNOSTI RETICULOC CS CS YTE AUTOMATED CYANOCOBA 98915 [facility] EDD 2 DIAGNOSTI DIAGNOSTI VITAMIN CS CS B-12 25 38411 [facility] HYDROXY 2 DIAGNOSTI DIAGNOSTI INCLUDES CS CS FRACTIONS IF PERFORMED BLOOD 15765 [facility] COUNT 2 DIAGNOSTI DIAGNOSTI COMPLETE CS CS AUTO&AUTO DIFRNTL WBC IRON 10160 [facility] BINDING 2 DIAGNOSTI [place] [address] [facility] FOLIC 2 DIAGNOSTI DIAGNOSTI ACID CS CS SERUM COLLECTIO 39674 [facility] N VENOUS 2 DIAGNOSTI DIAGNOSTI [place] [address] [facility] IRON 2 DIAGNOSTI DIAGNOSTI CS CS COMPREHEN 94938 [facility] SIVE 2 DIAGNOSTI DIAGNOSTI METABOLIC CS CS PANEL CORRECTIO 83292 [place] [facility] BOONE N 2 FOR HUONG TRICHIASI EYEHLTH & S SURG P EPILATION FORCEPS ONLY OPHTH 82307 [place] [facility] 2 FOR HUONG XM&EVAL EYEHLTH & INTERMEDI SURG P ATE ESTAB PT OPHTH 35379 [place] [facility] 2 FOR HUONG XM&EVAL EYEHLTH & INTERMEDI SURG P ATE ESTAB PT CORRECTIO 94630 [place] [facility] N 2 FOR HUONG TRICHIASI EYEHLTH & S [place] [address] [facility] 2 [facility] [employer] [place] [address] LABORATOR LABORATOR THYROID 2 Y & Y & STIMULATI BIODIAGNO BIODIAGNO NG STICS STICS HORMONE TSH COLLECTIO 21099 LABORATOR LABORATOR N VENOUS 2 Y & Y & BLOOD BIODIAGNO BIODIAGNO VENIPUNCT STICS STICS URE COMPREHEN 05955 LABORATOR LABORATOR SIVE 2 Y & Y & METABOLIC BIODIAGNO [place]IAG[place] [address] LABORATOR LABORATOR FREE 2 Y & Y & THYROXINE BIODIAGNO BIODIAGNO STICS STICS LIPID 99030 LABORATOR LABORATOR PANEL 2 Y & Y & BIODIAGNO BIODIAGNO STICS STICS BLOOD 46577 LABORATOR LABORATOR COUNT 2 Y & Y & COMPLETE BIODIAGNO BIODIAGNO AUTO&AUTO [place] [address] LABORATOR LABORATOR TRIIODOTH 2 Y & Y & YRONINE BIODIAGNO BIODIAGNO T3 FREE STICS STICS CYANOCOBA 81709 LABORATOR LABORATOR EDD 2 Y & Y & VITAMIN BIODIAGNO BIODIAGNO B-12 STICS STICS 25 63394 LABORATOR LABORATOR HYDROXY 2 Y & Y & INCLUDES BIODIAGNO BIODIAGNO FRACTIONS STICS STICS IF PERFORMED CORRECTIO 62367 [facility] N 2 FOR HUONG TRICHIASI EYEHLTH & S SURG P EPILATION FORCEPS ONLY OPHTH 63831 [facility] 2 FOR HUONG XM&EVAL EYEHLTH & INTERMEDI SURG P ATE ESTAB PT OPHTH 27470 [place] [facility] 2 FOR HUONG XM&EVAL EYEHLTH & INTERMEDI SURG P ATE ESTAB PT CORRECTIO 95921 [facility] N 2 FOR HUONG TRICHIASI EYEHLTH & S SUR[place] [address] LABORATOR LABORATOR SURG 1 Y & Y & PATHOLOGY BIODIAGNO BIODIAGNO STICS STICS GROSS&HERB ROSCOPIC EXAM OPHTH 38949 [facility] 1 FOR HUONG XM&EVAL EYEHLTH & INTERMEDI SURG P ATE ESTAB PT COLLECTIO 39025 [facility] N VENOUS 1 PRIMARY ALVAREZ BLOOD CARE DECALVO VENIPUNCT CENTER [facility] URE OPHTH 22594 [facility] 1 FOR HUONG XM&EVAL EYEHLTH & INTERMEDI SURG P ATE ESTAB PT CORRECTIO 48782 [facility] N 1 FOR HUONG TRICHIASI EYEHLTH & S SURG P EPILATION FORCEPS ONLY CORRECTIO [address] [place] [facility] N 1 FOR HUONG TRICHIASI EYEHLTH & S SURG P EPILATION FORCEPS ONLY OPHTH 57027 [place] [facility] 1 FOR HUONG XM&EVAL EYEHLTH & INTERMEDI SURG P ATE ESTAB PT COLLECTIO 80814 [facility] N VENOUS 1 PRIMARY AL[facility]Z BLOOD CARE DECALVO VENIPUNCT CENTER MAR URE COMPREHEN 83055 LABORATOR LABORATOR SIVE 1 Y & Y & METABOLIC BIODIAGNO [place] [address] LABORATOR LABORATOR FOLIC 1 Y & Y & ACID BIODIAGNO [place] [address] LABORATOR LABORATOR IRON 1 Y & Y & BIODIAGNO BIODIAGNO STICS STICS BLOOD 77386 LABORATOR LABORATOR COUNT 1 Y & Y & COMPLETE BIODIAGNO BIODIAGNO AUTO&AUTO STICS STICS DIFRNTL WBC LIPID 49618 LABORATOR LABORATOR PANEL 1 Y & Y & BIODIAGNO BIODIAGNO STICS STICS LIPOPROTE 06064 LABORATOR LABORATOR IN DIRECT 1 Y & Y & BIODIAGNO BIODIAGNO MEASUREME STICS STICS NT LDL CHOLESTER OL IRON 18420 LABORATOR LABORATOR BINDING 1 Y & Y & CAPACITY BIODIAGNO BIODIAGNO STICS STICS ORGANIC 14796 LABORATOR LABORATOR ACID 1 1 Y & Y & QUANTITAT BIODIAGNO BIODIAGNO BALAJI STICS STICS CYANOCOBA 23973 LABORATOR LABORATOR EDD 1 Y & Y & VITAMIN BIODIAGNO BIODIAGNO B-12 STICS STICS 25 78987 LABORATOR LABORATOR HYDROXY 1 Y & Y & INCLUDES BIODIAGNO BIODIAGNO FRACTIONS [place] [address] LABORATOR LABORATOR PROSTATE 1 Y & Y & SPECIFIC BIODIAGNO BIODIAGNO ANTIGEN STICS STICS TOTAL DXA BONE 45396 [facility] DENSITY 1 EIDER SHAE STUDY 1/> RADIOLOGY SITES ASSOCIAT AXIAL SKEL OPHTH 90024 [facility] 1 FOR HUONG XM&EVAL EYEHLTH & INTERMEDI SURG P ATE ESTAB PT CORRECTIO 79375 [facility] N 1 FOR HUONG TRICHIASI EYEHLTH & S SURG P EPILATION FORCEPS ONLY ECG 19645 [facility] ROUTINE 1 PRIMARY ALVAREZ ECG CARE DECALVO W/LEAST CENTER MAR 12 LDS TRCG ONLY W/O I&R CORRECTIO 01659 [facility] N 0 FOR HUONG TRICHIASI EYEHLTH & S SURG P EPILATION FORCEPS ONLY OPHTH 52930 [facility] 0 FOR HUONG XM&EVAL EYEHLTH & INTERMEDI SURG P ATE ESTAB PT COMPREHEN 31958 LABORATOR LABORATOR SIVE 0 Y & Y & METABOLIC BIODIAGNO BIODIAG[place] [address] LABORATOR LABORATOR FOLIC 0 Y & Y & ACID BIODIAGNO BIODI[place] [address] LABORATOR LABORATOR [id number] Y & Y & SFERRIN BIODIAGNO BIODIAGNO STICS STICS BLOOD 84284 LABORATOR LABORATOR COUNT 0 Y & Y & COMPLETE BIODIAGNO BIODIAGNO AUTOMATED STICS STICS CYANOCOBA 20051 LABORATOR LABORATOR EDD 0 Y & Y & VITAMIN BIODIAGNO BIODIAGNO B-12 STICS STICS ORGANIC 47636 LABORATOR LABORATOR ACID 1 0 Y & Y & QUANTITAT BIODIAGNO BIODIAGNO BALAJI STICS STICS CORRECTIO 98527 [facility] BOONE N 0 FOR HUONG TRICHIASI EYEHLTH & S SURG P EPILATION FORCEPS ONLY OPHTH 20442 [place] [facility] MEDICAL 0 FOR HUONG XM&EVAL EYEHLTH & INTERMEDI SURG P ATE ESTAB PT OPHTH 05636 [place] [facility] BOONE MEDICAL 0 FOR HUONG XM&EVAL EYEHLTH & INTERMEDI SURG P ATE ESTAB PT COLLECTIO 83602 [facility] N VENOUS 0 W W BLOOD [facility] COMPREHEN 62599 [facility] SIVE 0 W W METABOLIC REGIONAL [facility] PANEL [facility] BLOOD 49716 [facility] COUNT 0 W W COMPLETE [facility] AUTO&AUTO MEDICAL MEDICAL DIFRNTL [facility] WBC BILIRUBIN 10066 [facility] DIRECT 0 W W [facility] CORRECTIO 47645 [place] [facility] [place] N 0 FOR , MARTHA Benitez TRICHIASI EYEHLTH & S SURG PSC EPILATION FORCEPS ONLY OPHTH 94581 [place] [facility] BOONE MEDICAL 0 FOR , MARTHA Benitez XM&EVAL EYEHLTH & INTERMEDI SURG PSC ATE ESTAB PT OPHTH 34150 [place] [facility]ONE MEDICAL 0 FOR , MARTHA L XM&EVAL EYEHLTH & INTERMEDI SURG PSC ATE ESTAB PT INJECTION 85183 [facility], CARDIAC 0 [facility] R CATHJ L HEART VENTR/L ATR ANGIOGRAP H PLCMT G0269 [facility] O[facility]L DEVC 0 W W REGIONAL REGIONAL SAMUEL/ART MEDICAL MEDICAL POST [facility] SURG/INTR VNL PROC INJECTION J3010 [facility] FENTANYL 0 W W CITRATE REGIONAL REGIONAL 0.1 MG [facility] UNCLASSIF J3490 [facility] IED DRUGS 0 W W REGIONAL [facility] INJECTION J2250 [facility] 0 W W [place] REGIONAL REGIONAL HCL PER MEDICAL MEDICAL 1 MG [facility] [place] [address] [place] [facility], C-CATHJ 0 [facility] F/SLCTV C HEART ANGRPH I SI&R 91441 [facility], F/NJX PX 0 [facility] DURING HEART C-CATHJ PULM&/OR SELECT LOCM Q9967 [facility] V[facility] [phone] W W MG/ML REGIONAL REGIONAL [facility] MEDICAL CONCENTRA [facility] TION PER ML I SI&R 46977 [facility], F/NJX PX 0 [facility] DURING HEART C-CATHJ VENTR&/AT R ANGRPH L HRT 74846 [facility], CATHETERI 0 [facility] ZATION HEART RETROGRAD E BRACHIAL PERQ INJECTION J2001 [facility] 0 W W LIDOCAINE REGIONAL REGIONAL HCL MEDICAL MEDICAL INTRAVENO [facility] US INFUS 10 MG ECG 22136 [facility] ROUTINE 0 W W ECG REGIONAL REGIONAL W/LEAST MEDICAL MEDICAL 12 [facility] TRCG ONLY W/O I&R COLLECTIO 75649 [facility] N VENOUS 0 W W BLOOD REGIONAL REGIONAL VENIPUNCT MEDICAL MEDICAL [facility] BLOOD 79327 [facility] COUNT 0 W W COMPLETE REGIONAL REGIONAL AUTO&AUTO MEDICAL MEDICAL DIFRNTL [facility] WBC BASIC 50377 JAY THOMPSON METABOLIC 0 W W PANEL REGIONAL REGIONAL [facility] TOTAL CENTER CENTER MYOCARDIA 25532 Emmanuel MERINO SPECT 0 [facility] MULTIPLE HEART STUDIES CV STRS 29476 RODRÍGUEZ EDUARDO, TST 0 [facility] XERS&/OR HEART RX CONT ECG I&R ONLY TECHNETIU [id number] JAY THOMPSON M TC-99M 0 W W TETROFOSM REGIONAL REGIONAL IN DX PER MEDICAL MEDICAL STUDY CENTER CENTER DOSE CV STRS 84462 RODRÍGUEZ EDUARDO, TST 0 [facility] HIWOT R XERS&/OR HEART RX CONT ECG W/O I&R CV STRS 70808 JAY THOMPSON TST 0 W W XERS&/OR REGIONAL REGIONAL RX CONT MEDICAL MEDICAL ECG TRCG CENTER CENTER ONLY OPHTH 47204 [facility] 0 FOR , MARTHA L XM&EVAL EYEHLTH & INTERMEDI SURG PSC ATE ESTAB PT CV STRS 34059 [place] JAYCE TST 0 [facility] [place] XERS&/OR HEART RX CONT ECG I&R ONLY ECHO 11538 [place] ANNE TTHRC R-T 0 VALLEY N, 2D HEART RAGHURAMA W/WOM-MOD N E COMPL SPEC&COLR D CV STRS 53480 JAY THOMPSON TST 0 W W XERS&/OR REGIONAL REGIONAL RX CONT MEDICAL MEDICAL ECG TRCG CENTER CENTER ONLY CV STRS 94635 [place] JAYCE TST 0 [facility] [place] XERS&/OR HEART RX CONT ECG W/O I&R 25 [id number] LABORATOR LABORATOR HYDROXY 0 Y & Y & INCLUDES BIODIAGNO BIODIAGNO FRACTIONS STICS STICS IF PERFORMED CYANOCOBA 51436 LABORATOR LABORATOR EDD 0 Y & Y & VITAMIN BIODIAGNO BIODIAGNO B-12 [place] [address] LABORATOR LABORATOR FERRITIN 0 Y & Y & BIODIAGNO BIODIAGNO STICS STICS BLOOD 10771 LABORATOR LABORATOR COUNT 0 Y & Y & COMPLETE BIODIAGNO BIODIAGNO AUTO&AUTO STICS STICS DIFRNTL WBC IRON 84235 LABORATOR LABORATOR BINDING 0 Y & Y & CAPACITY BIODIAGNO BIODIAGNO STICS STICS COLLECTIO 06524 [facility] N VENOUS 0 PRIMARY ALVAREZ BLOOD CARE DECALVO, VENIPUNCT CENTERINC KYA URE OPAL V COMPREHEN 38506 LABORATOR LABORATOR SIVE 0 Y & Y & METABOLIC BIODIAGNO BI[place] [address] LABORATOR LABORATOR FOLIC 0 Y & Y & ACID BIODIAGNO BI[place] [address] LABORATOR LABORATOR IRON 0 Y & Y & BIODIAGNO BIODIAGNO STICS STICS OPHTH 12944 [facility] 0 FOR , MARTHA Benitez XM&EVAL EYEHLTH & INTERMEDI SURG PSC ATE ESTAB PT CORRECTIO 14255 [facility] N 0 FOR , MARTHA Benitez TRICHIASI EYEHLTH & S SURG PSC EPILATION FORCEPS ONLY ECG 35369 [facility] ROUTINE 0 PRIMARY ALVAREZ ECG CARE DECALVO, W/LEAST CENTERINC KYA 12 LDS OPAL V TRCG ONLY W/O I&R CORRECTIO 21888 [facility] N 0 FOR , MARTHA Benitez TRICHIASI EYEHLTH & S SURG PSC EPILATION FORCEPS ONLY OPHTH 02940 [facility] 0 FOR , MARTHA Benitez XM&EVAL EYEHLTH & INTERMEDI SURG PSC ATE ESTAB PT CORRECTIO 28808 [facility] N 9 FOR , MARTHA Benitez TRICHIASI EYEHLTH & S SURG PSC EPILATION FORCEPS ONLY OPHTH 34974 [facility] 9 FOR , MARTHA Benitez XM&EVAL EYEHLTH & INTERMEDI SURG PSC ATE ESTAB PT COMPREHEN 15992 [facility] SIVE 9 [facility] METABOLIC PANEL COLLECTIO 55168 [facility] N VENOUS 9 PRIMARY ALVAREZ BLOOD CARE DECALVO, VENIPUNCT CENTERINC KYA URE OPAL V BLOOD 56352 [facility] COUNT 9 [facility] COMPLETE AUTO&AUTO DIFRNTL WBC OPHTH 88993 [facility] 9 MARTHA TELLES XM&EVAL EYEHLTH & INTERMEDI SURG PSC ATE ESTAB PT CORRECTIO 63874 [facility] N 9 MARTHA TELLES EYEHLTH & S SURG PSC EPILATION [facility] ONLY OPHTH [address] [facility] 9 MARTHA TELLES XM&EVAL EYEHLTH & INTERMEDI SURG PSC ATE ESTAB PT RADIOLOGI 02496 [facility] EXAM 9 EIDER, CHEST 2 RADIOLOGY MIKAYLA VIEWS K FRONTAL&L ASSOCIATE ATERAL S PSC URNLS DIP 97371 [facility] STICK/TAB [place] [address] [facility] HAPTOGLOB 9 [facility] [place] [address] [facility] FOLIC 9 [facility] ACID RBC PROSTATE G0103 [facility] CANCER 9 [facility] SCREENING ; PSA TEST BLOOD 12796 [facility] COUNT 9 [facility] COMPLETE AUTO&[place] [address] [facility] THYROID 9 [facility] STIMULATI NG HORMONE TSH COMPREHEN 60984 [facility] SIVE 9 [facility] METABOLIC PANEL 25 49334 [facility] HYDROXY 9 [facility] INCLUDES FRACTIONS IF PERFORMED CYANOCOBA 51882 [facility] EDD [facility] VITAMIN B-12 CORRECTIO 48507 [facility] N 9 FOR MARTHA EYEHLTH & S SURG PSC EPILATION [facility] ONLY HEPATIC 47747 [facility] ME[facility]OW[facility] FUNCTION 9 W W [facility] BLOOD 67644 [facility] MEADOWVIE COUNT 9 W W COMPLETE [facility] AUTO&AUTO MEDICAL MEDICAL DIFRNTL [facility] WBC COLLECTIO 84261 ME[facility] MEADOWVIE N VENOUS 9 W W BLOOD REGIONAL REGIONAL VENIPUNCT [facility]RE CENTER CENTER OPHTH 845[address] [facility] 9 MARTHA TELLES XM&EVAL EYEHLTH & INTERMED[place] [address] PATHOLOGY PATHOLOGY SURG 9 & & PATHOLOGY CYTOLOGY CYTOLOGY LAB LAB GROSS&HERB ROSCOPIC EXAM EXCISION 30923 SANDY DELGADO MALIGNANT 9 , KIM , KIM LESION S/N/H/F/G 0.6-1.0 CM COLLECTIO 72911 [facility] N VENOUS 9 [facility] BLOOD VENIPUNCT URE OPHTH 70254 [facility] 9 MARTHA TELLES XM&EVAL EYEHLTH & INTERMEDI SURG PSC ATE ESTAB PT BLOOD 60058 [facility] COUNT 9 [facility] COMPLETE AUTO&AUTO DIFRNTL WBC HEPATIC 91959 [facility] FUNCTION 9 [facility] PANEL BLOOD 30659 [facility] COUNT 9 [facility]IC [facility] COMPLETE [employer] HOLDING AUTO&AUTO DIFRNTL WBC PROTEIN 05892 [facility] XCPT 9 AMERIC AMERIC REFRACTOM HOLDING HOLDING ETRY SERUM PLASMA/WH L BLD ALBUMIN 88529 [facility] SERUM 9 AMERIC AMERIC PLASMA/WH HOLDING HOLDING OLE BLOOD BILIRUBIN 02458 [facility] TOTAL 9 [facility]IC [facility] HOLDING GLUCOSE 93675 [facility] QUANTITAT 9 AMERIC AMERIC [place] BLOOD HOLDING HOLDING XCPT REAGENT STRIP BX SKIN 41759 UNIVERSIT TERESA, SUBCUTANE 9 Y ASSOC SPENCER P OUS&/MUCO DERMATOLO US GY MEMBRANE 1 LESION COL-CHR/M 41222 [facility] S NONDRUG 9 AMERIC AMERIC ANALYTE HOLDING HOLDING LEV QUAL/ROYA EA SPEC CHLORIDE 56440 [facility] BLD 9 [employer]IC [employer] HOLDING POTASSIUM 90504 [facility] SERUM 9 AMERIC AMERIC PLASMA/WH HOLDING HOLDING OLE BLOOD CREATININ 38466 [facility] E BLOOD 9 AMERIC AMERIC HOLDING HOLDING TRANSFERA 75086 [facility] LAB Z[facility] SE 9 AMERIC AMERIC ASPARTATE HOLDING HOLDING AMINO AST SGOT CALCIUM 05884 [facility] TOTAL 9 AMERIC AMERIC HOLDING HOLDING GLUC-6-PH 68281 [facility] OSPHATE 9 AMERIC AMERIC DEHYDROGE HOLDING [place] [address] LAB Z[facility] LAB ZION UREA 9 AMERIC AMERIC NITROGEN HOLDING HOLDING QUANTITAT [place] COLLECTIO 67942 LAB [facility] LAB ZION N VENOUS 9 AMERIC AMERIC BLOOD HOLDING HOLDING VENIPUNCT URE SODIUM 10005 [facility] LAB ZION SERUM 9 AMERIC AMERIC PLASMA [place] [address] LAB Z[facility] LAB ZINO PHOSPHATA 9 AMERIC AMERIC [place] [address] UNIVERSIT TERESA, LIP 9 Y ASSOC SPENCER Miller DERMATOLO GY OPHTH [address]32 [place] [facility] 9 FOR , MARTHA Benitez XM&EVAL EYEHLTH & INTERMEDI SURG [facility] ATE ESTAB PT CT THORAX [address] [place], 9 IGLESIA Zabala/CONTRAS RADIOLOGY T MATERIAL ASSOCIATE S [facility] 3D [address] [place], RENDERING 9 IGLESIA Zbaala/INTERP RADIOLOGY & POSTPROCE ASSOCIATE SS S [facility] SUPERVISI ON INJECTION J0690 [facility] MEADOW[facility]IE 9 W W CEFAZOLIN REGIONAL REGIONAL SODIUM MEDICAL MEDICAL 500 MG [facility] INJECTION J2250 MEADOW[facility]IE MEADOWVIE 9 W W MIDAZOLAM REGIONAL REGIONAL HCL PER MEDICAL MEDICAL 1 MG [facility] MESH C1781 MEADOW[facility]IE MEADOWVIE 9 W W REGIONAL REGIONAL MEDICAL MEDICAL [facility] LAPAROSCO 04163 MEADOWVIE MEADOWVIE PY SURG 9 W W RPR REGIONAL REGIONAL INITIAL MEDICAL MEDICAL INGUINAL CENTER CENTER HERNIA RINGERS J7120 MEADOW[facility]IE MEADOWVIE LACTATE 9 W W INFUSION REGIONAL REGIONAL UP TO MEDICAL MEDICAL 1000 CC [facility] ANESTHESI 31313 [facility] HERNIA 9 [facility] , CELESTE REPAIR ANESTHESI LOWER A [facility] ABDOMEN NOS INJECTION J3010 ME[facility]IE MEADOWVIE FENTANYL 9 W W CITRATE REGIONAL REGIONAL 0.1 MG [facility] CENTER COLLECTIO 05278 MEADOWVIE MEADOWVIE N VENOUS 9 W W BLOOD REGIONAL REGIONAL VENIPUNCT MEDICAL MEDICAL URE CENTER CENTER COMPREHEN 47470 MEADOWSHAE MEADOWVIE SIVE 9 W W METABOLIC REGIONAL REGIONAL PANEL [facility] MEDICAL [facility] BLOOD 98457 MEADOW[facility]IE MEADOWVIE COUNT 9 W W COMPLETE REGIONAL REGIONAL AUTO&AUTO MEDICAL MEDICAL DIFRNTL CENTER CENTER WBC URNLS DIP 84842 [facility] MEADOW[facility]IE 9 W W STICK/TAB REGIONAL REGIONAL LET MEDICAL MEDICAL REAGENT [facility] AUTO MICROSCOP Y RADIOLOGI 71903 MEADOW[facility]IE MEADOWVIE C EXAM 9 W W CHEST 2 REGIONAL REGIONAL VIEWS [facility] FRONTAL&L [facility] ATERAL ECG 85589 MEADOW[facility]IE MEADOWVIE ROUTINE 9 W W ECG REGIONAL REGIONAL W/LEAST MEDICAL MEDICAL 12 [facility] TRCG ONLY W/O I&R OPH BMTRY 19984 [facility] 9 FOR , MARTHA Benitez ECHOGRAPY EYEHLTH & A-SCAN SURG PSC IO LENS PWR JEFF OPHTH 63351 [facility] 9 FOR , MARTHA Benitez XM&EVAL EYEHLTH & COMPRHNSV SURG PSC ESTAB PT 1/> OPHTH 80728 [facility] 8 FOR , MARTHA Benitez XM&EVAL EYEHLTH & INTERMEDI SURG PSC ATE ESTAB PT OPHTH 65960 [facility] 8 FOR , MARTHA Benitez XM&EVAL EYEHLTH & COMPRE SURG PSC NEW PT 1/> VST OPHTH 02193 RUDI GRIJALVA, MEDICAL 8 MURALI CARRION XM&EVAL COMPRHNSV ESTAB PT 1/> FUNDUS 08990 RUDI GRIJALVA, PHOTOGRAP 8 MURALI CARRION HY W/INTERPR ETATION & REPORT Encounters Encounter Start End Date Code Location Performer Type Date OFFICE 30979 [facility] 5 5 [facility] T [facility] 15 CENTER MINUTES OFFICE 77325 [facility] 5 5 [facility] T V[facility] 15 CENTER MINUTES OFFICE 20751 [facility] CARRION OUTPATIEN 4 4 ABR ABR T VISIT 15 MINUTES [facility]OSP[facility] - 4 4 W OUTPATIEN [facility] 79634 [facility] 4 4 PRIMARY T VISIT CARE 25 CENTER MINUTES OFFICE 91993 [facility] 4 4 [facility]IMARY T VISIT CARE 25 CENTER MINUTES [facility]OSPITAL [facility] - 3 3 W OUTPATIEN [facility] T MEDICAL OFFICE 49477 [facility] 3 3 PRIMARY T VISIT CARE 15 CENTER MINUTES OFFICE 48735 [facility] 2 2 PRIMARY T VISIT CARE 25 CENTER MINUTES OFFICE 90043 [facility] 2 2 PRIMARY T VISIT CARE 25 CENTER MINUTES OFFICE 24311 [facility] 1 1 PRIMARY T VISIT CARE 10 CENTER MINUTES OFFICE 44148 [facility] DEL OUTPATIEN 1 1 PRIMARY ALVAREZ T VISIT CARE DECALVO 15 CENTER MAR MINUTES OFFICE 42549 [facility] 1 1 PRIMARY T VISIT CARE 15 CENTER MINUTES OFFICE 13581 [facility] 1 1 PRIMARY T VISIT CARE 15 CENTER MINUTES OFFICE 72817 [facility] 1 1 PRIMARY T VISIT CARE 15 CENTER MINUTES [facility]OSP[facility] - 1 1 [facility] 47760 [place] OUT[facility] 1 1 RIVERVIEW N RAG T [facility] 45 HEART MINUTES OFFICE 61048 [facility] OUTPATI[facility] 1 1 PRIMARY T VISIT CARE 15 CENTER MINUTES OFFICE 14405 [facility] OUTPATIEN 0 0 PRIMARY T VISIT CARE 15 CENTER MINUTES [facility]OSPITAL [facility] ME[facility] - 0 0 W [facility] OFFICE 73268 [facility] OUTPATIEN 0 0 [facility] T VISIT HEART 25 MINUTES HOSPITAL MEADOW[facility]IE - 0 0 W [facility] MEADOWVIE - 0 0 W [facility] MEADOWVIE [facility] 0 0 W [facility] OFFICE 01650 [facility] 0 0 [facility] FREE 0 0 PRIMARY STANDING CARE [facility] CL[facility], [facility] [place] FREE 0 0 [facility] OFF[facility] 26275 [facility] OUTPATIEN 0 0 PRIMARY T VISIT CARE 15 CENTERINC MINUTES OFFICE 20217 [facility] OUTPATIEN 0 0 PRIMARY T VISIT CARE 15 CENTERINC [facility] FREE 0 0 PRIMARY STANDING [facility]ARE [facility] OFFICE 80855 [facility] OUT[facility] 9 9 PRIMARY T VISIT CARE 15 CENTERINC MINUTES CLINIC, [facility] FREE 9 9 [facility], [facility] FREE 9 9 [facility]IMARY STAND[facility]ARE [facility] OFFICE 54966 [facility] OUTPATIEN 9 9 PRIMARY T VISIT CARE [address] [facility] MINUTES CLINIC, [facility] [place] FREE 9 9 [facility]ANDING [facility]ARE [facility] OFFICE 84133 [facility] OUTPATIEN 9 9 PRIMARY T VISIT 5 CARE MINUTES [facility] MEADOWVIE [facility] 9 9 [facility] [place] [place] [facility] 9 9 [facility] STAND[facility] CARE [facility]ENTER[facility] OFFICE 95010 [facility] [place] OUTPATIEN 9 9 PRIMARY T VISIT CARE 25 [facility] MEADOWVIE - 9 9 [facility] 41068 SANDY DELGADO CONSULTAT 9 9 , KIM ALVAREZ ION NEW/ESTAB PATIENT 40 MIN OFFICE 54065 [facility], CONSULTAT 9 9 Y ASSOC SPENCER Miller ION DERMATOLO NEW/ESTAB GY PATIENT 40 MIN HOSPITAL ME[facility] - 9 9 W [facility] MEADOWSHAE - 9 9 W [facility] CLINIC, [facility] [place] FREE 9 9 PRIMARY STANDING CARE [facility] OFFICE 67659 [facility] OUTPATIEN 9 9 PRIMARY T [facility] 20 CARE [facility] OFFICE 60067 [facility] OUTPATIEN 9 9 MARTHA TELLES T VISIT EYEHLTH & 15 SURG PSC MINUTES OFFICE 81488 RUDI GRIJALVA OUTPATIEN 8 8 MURALI CARRION T VISIT 10 MINUTES
--- OUTSIDE RECORDS SUMMARY | 2016-07-19 23:32 | External Medical Summary Rpt ---
[...] Blood RESU LTS CALLED TO: LISHA 07/19/162035 Ernesto,[place] nda Lymphocyt 0.7 - 4.5 K/mm3 Normal [...]
--- OUTSIDE RECORDS SUMMARY | 2016-07-19 23:32 | External Medical Summary Rpt ---
[...] Blood RESU LTS CALLED TO: LISHA 07/19/162035 Ernesto,[place] nda Lymphocyt 0.7 - 4.5 K/mm3 Normal [...]
[2016-07-20] VITALS (21 sets, daily range): BP systolic 115–139; BP diastolic 55–87
[2016-07-20 01:46] LABS: ABO BLOOD TYPE O; ANTIHUMAN GLOB CROSSMATCH COMPAT; RH BLOOD TYPE POSITIVE
--- NOTE | 2016-07-20 05:55 | RADIOLOGY REPORT PS360 ---
CHEST-AP VIEW ONLY HISTORY: VISION CHANGES ORDERING PHYSICIAN: Aparna Leal MD PATIENT AGE: 80 years COMPARISON: None available FINDINGS: The cardiomediastinal silhouette and pulmonary vascularity are within normal limits. There is an irregular pleural-based opacity in the right upper lobe superiorly and laterally measuring approximately 1.9 cm. Atelectatic changes are present in the right lower lobe. The remaining lungs are clear.. No acute bony abnormalities. IMPRESSION: 1. 1.9 cm irregular pleural-based opacity right upper lobe. Differential diagnosis includes fibrotic change versus neoplasm. Consider CT for more thorough evaluation since there are no old exams available for comparison. 2. Right lower lobe atelectatic changes
[2016-07-20 06:08] LABS: STOOL OCCULT BLOOD POSITIVE (NEG)
--- NOTE | 2016-07-20 06:23 | RADIOLOGY REPORT PS360 ---
CT HEAD W/O CONTRAST HISTORY: Visual disturbance VISION CHANGES ORDERING PHYSICIAN: Octavio Guo MD PATIENT AGE: 80 years COMPARISON: None TECHNIQUE: Axial images obtained without contrast. Brain and bone windows reviewed. FINDINGS: No midline shift, mass effect, intracranial hemorrhage, hydrocephalus, or extra-axial fluid collection is evident. Involutional changes compatible with patient's age. The calvarium has an unremarkable appearance. No mastoid effusion. Mucosal thickening noted of the right aspect of the sphenoid sinus. IMPRESSION: 1. No acute intracranial pathology. 2. Sphenoid sinus disease.
--- NOTE | 2016-07-20 07:18 | Discharge Summary Standard ---
Demographics: Admit date: 07/20/16 Chief complaint: "I feel sick" PRIMARY DIAGNOSIS: ANEMIA Allergies: Coded Allergies: tuberculin, purified protein deriva (07/20/16) History of present illness: History of present illness: 80-year-old male presented to the emergency department after a rather adventurous day yesterday with complaints of just not feeling well. Patient tells me his symptoms actually started 48 hours prior. He was mowing hay and realized he didn't feel well so he quit mowing hay for the day and went to rest. He did not recover over the next 48 hours. On the day of admission he was seen in the [facility] office by my nurse practitioner and sent over to [facility] for labs and a CT scan of the head. The patient had mentioned he had had some transient vision loss and amaurosis fugax was a concern. Patient had his labs performed at [facility] but no CT scan. He then came to our hospital for his CT scan and showed up in the emergency department. His emergency department workup was rather unrevealing except for anemia with a hemoglobin of 8.1. Patient tells me about 2 years ago he did require blood transfusion but does not know the source of his anemia. Patient was admitted for observation and transfusion of 2 units of packed red blood cells. His chest x-ray has also revealed a RIGHT upper lobe nodule and this will require follow-up CT scanning. Past medical history: Family HX Family Hx Insignificant No Immunization HX DT/Tetanus Unknown Pneumonia Unknown TB Test in last year No General CAD? Yes Angina: No CT: No Hypertension? Yes Hyperlipidemia? No CHF? No DVT? No PE? No COPD? Yes Asthma? No Anemia? No GERD? No Gastric ulcers? No GI Bleed? No Hernia? No Thyroid Problems? Yes Hypothyroidism? No CVA? No Seizures? No Diabetes? No Renal Insuffiency? No UTI? No Stones? No BPH? No GB Disease: No Nephritic Syndrome? No Asplenia? No Hepatitis? No Sickle Cell Disease? No Arthritis? No Migraines? No Cataracts? No Glaucoma? No MRSA? No HIV? No TB? No Anxiety? No Depression? No Cancer? No More? No Past Surgical HX Previous Surgery?Y SKIN CA REMOVAL Current home meds: Reported Medications Levothyroxine Sodium (Levothyroxine) 0.025 MG NG DAILY Omeprazole (Omeprazole 20MG) 20 MG PO DAILY Metoprolol Tartrate (Metoprolol) 12.5 MG PO BID Dapsone 100 MG PO DAILY Social Hx: Smoking HX Tobacco Yes Type SNUFF Alcohol Alcohol: No Hx of Drug Use Drug Use? No Review of systems: Constitutional malaise. Respiratory no symptoms reported. Cardiovascular no symptoms reported Gastrointestinal/Abdominal no symptoms reported Genitourinary no symptoms reported. Musculoskeletal no symptoms reported. Neurological Yes: no symptoms reported. Exam: Lab data for last 24 hours: Laboratory Tests 07/20/16 0515: Stool Occult Blood POSITIVE 07/20/16 0425: Misc Test Units BLOOD UNIT RELEASE 07/20/16 0200: Misc Test Units BLOOD UNIT RELEASE 07/19/16 2330: TSH 10.99 H, Thyroxine (T4) 7.1 07/19/162329: Ferritin 50, Retic Count 5.0 H, Antibody Screen NEGATIVE, Miscellaneous Test POSITIVE 07/19/162142: Urine Color YELLOW, Urine Appearance CLEAR, Urine pH 7.0, Ur Specific Tyler <= 1.005, Urine Protein NEGATIVE, Urine Ketones NEGATIVE, Urine Blood NEGATIVE, Urine Nitrate NEGATIVE, Urine Bilirubin NEGATIVE, Urine Urobilinogen 1.0, Ur Leukocyte Esterase TRACE H, Urine RBC NONE, Urine WBC OCC, Ur Squamous Epith Cells OCC, Urine Bacteria NONE, Urine Glucose NEGATIVE 07/19/162023: Sodium 133 L, Potassium 3.7, Chloride 99, Carbon Dioxide 27, BUN 11, Creatinine 1.1, Estimated Creat Clear 48 L, Estimated GFR (MDRD) 65, Glucose 122 H, Calcium 8.4 L, Total Bilirubin 1.0, AST 34, ALT 26, Alkaline Phosphatase 98, Creatine Kinase 95, CK-MB (CK-2) Rel Index 1.1, CK and CKMB Interp 1.0, Troponin I < 0.02, Total Protein 6.7, Albumin 3.0 L, Globulin 3.7 H, Albumin/Globulin Ratio 0.8 L, WBC 6.6, RBC 3.35 L, Hgb 8.1 L, Hct 27.8 L, MCV 82.9, RDW 17.7 H, Plt Count 185, MPV 8.0, Gran % 69.9, Gran # 4.6, Lymphocytes % 21.7, Monocytes % 7.0, Eosinophils % 0.7, Basophils % 0.6, Lymphocytes # 1.4, Monocytes # 0.5, Eosinophils # 0.1, Basophils # 0.0, PUBS MCHC 28.9 L, MCH 24.0 L Admission vital signs: 1ST Vital Signs Result Date Time Pulse Ox 94 07/19 2013 B/P 118/60 07/19 2013 Temp 98.5 07/19 2013 Pulse 76 07/19 2013 Resp 18 07/19 2013 O2 Delivery ROOM AIR 07/20 0000 Exam General appearance: alert, active, awake Cardiovascular: regular rate & rhythm Respiratory: clear to auscultation, chest non-tender ABD: non-distended, normal bowel sounds, no rebound Extremities: full range of motion Hospital Course Hospital Course: Patient was admitted and received 2 units of packed red blood cells which improved his anemia. CT scan of the chest was performed prior to discharge. Patient was discharged later in the day on July 20. He will follow-up in the office on July 26 with Katie Garibay, nurse practitioner. By this point additional iron studies and his CT report will be available Medications Medications: Discharge meds are as noted. Follow up Follow up in office in: saturday, july 26 with: Carly Campo
--- NOTE | 2016-07-20 07:19 | PHARMACY CLINIC NOTE ---
Patient Demographics Patient Demographics Admission date: 07/20/16 Date: 07/20/16 Time: 717 Allergies Coded Allergies: tuberculin, purified protein deriva (07/20/16) HEIGHT- FT: 5 IN: 8.00 K.303 VTE General Information Labs: Laboratory Tests 07/20 2023 Hematology Hgb (14.1 - 18.0 g/dL) 8.1 L Hct (42.0 - 52.0 %) 27.8 L Plt Count (142 - 424 K/mm3) 185 Disclaimer The following section includes nursing documentation that has been pulled in for pharmacy review. Patient's VTE score: 1 Patient's VTE Risk: VERY LOW RISK Clinical trial participant? No VTE prophylaxis NQF 0371 VTE prophylaxis ordered? Yes Type of prophylaxis/treatment: PRABHAKAR at 0719
--- NOTE | 2016-07-20 07:46 | CARDIOVASCULAR REPORT ---
"Cerebrovascular Exam Indications: 435.9 Unspecified transient cerebral ischemia. IMPRESSIONS 1. The bilateral vertebral arteries are patent with normal antegrade flow. 2. Study suggests less than 20% stenosis involving the right internal carotid artery and the left internal carotid artery. History: Right-sided weakness and left-sided weakness. Carotid duplex study. Complete study and Doppler flow study including spectral analysis, color and kwogn scale imaging. Location: Vascular laboratory. Patient status: Inpatient. Tables: Arterial flow: + +--------+--------+ |Location |V sys |V ed | + +--------+--------+ |Right CCA - proximal|58.1cm/s|17.3cm/s| + +--------+--------+ |Right CCA - distal |51.1cm/s|17.3cm/s| + +--------+--------+ |Right ECA |74.6cm/s|--------| + +--------+--------+ |Right ICA - proximal|55cm/s |18.9cm/s| + +--------+--------+ |Right ICA - mid |62.9cm/s|27.5cm/s| + +--------+--------+ |Right ICA - distal |101cm/s |33.8cm/s| + +--------+--------+ |Right vertebral |36.9cm/s|--------| + +--------+--------+ |Left CCA - proximal |76.2cm/s|18.1cm/s| + +--------+--------+ |Left CCA - distal |61.3cm/s|18.9cm/s| + +--------+--------+ |Left ECA |57.4cm/s|--------| + +--------+--------+ |Left ICA - proximal |58.1cm/s|15.7cm/s| + +--------+--------+ |Left ICA - mid |82.5cm/s|23.6cm/s| + +--------+--------+ |Left ICA - distal |93.5cm/s|33cm/s | + +--------+--------+ |Left vertebral |43.2cm/s|--------| + +--------+--------+ Velocity ratios: + + + + + + | |Right, V sys|Right, V ed|Left, V sys|Left, V ed| + + + + + + |Max ICA/dist CCA|1.98 |1.95 |1.53 |1.75 | + + + + + + (Report amended ) Electronically signed by: Willard Dior [id number]"
[2016-07-20 08:00] LABS: LYMPH # 1.1 K/mm3 (0.7-4.5); LYMPH % 25.6 % (10-50)
[2016-07-20 08:03] LABS: HEMOGLOBIN 10.3 g/dL (14.1-18.0)
--- NOTE | 2016-07-20 09:17 | RADIOLOGY REPORT PS360 ---
CT CHEST W/ CONTRAST INDICATION: Right upper lobe nodule, solitary pulmonary nodule ABNORMAL CXR,RUL NODULE ORDERING PHYSICIAN: Octavio Guo MD PATIENT AGE: 80 years COMPARISON: Radiograph of 07/19/2016 TECHNIQUE: Axial images are obtained following the intravenous administration of 75 mL's of Isovue-370 contrast. Sagittal and coronal reformatted images are reviewed as well. FINDINGS: No aortic aneurysm or dissection or central obstructing pulmonary embolus apparent. Normal heart size with no obvious pericardial effusion. Centrilobular emphysematous changes are present with scattered blebs. There is asymmetric pleural thickening in the right apex have a somewhat nodular configuration which contributes to the radiographic abnormality. Focal pleural parenchymal opacity is present in the right apex laterally at 16 mm resulting in the abnormality noted on the chest x-ray which is felt to be related to pleural parenchymal scarring. 4 mm subpleural opacity is present in the left upper lobe anteriorly. There are scattered blebs in both upper and lower lobes. There is right-sided lung volume loss with some shift of the trachea toward the right. There is severe volume loss in the right lower lobe. Severe bronchiectasis is noted in the right lower lobe with honeycombing. Bronchiectasis is present in the right lung base as well. Increased soft tissue density is present in the subcarinal region and surrounds the right lower lobe bronchus without bronchial narrowing.. The esophagus is also somewhat deviated toward the right secondary to the volume loss. Upper abdominal images are unremarkable. No acute bony anomalies are evident. IMPRESSION: 1. Chest x-ray abnormality in the right upper lobe is felt to be related to postinflammatory fibrotic change. Six-month follow-up suggested for confirmation. 2. Severe right-sided lung volume loss with severe bronchiectasis and honeycombing in the right lower lobe also with some volume loss and bronchiectasis in the right middle lobe at the lung base. Compensatory hyperinflation of the right upper lobe. There is mediastinal shift toward the right. 2. Abnormal soft tissue density in the subcarinal region and surrounding the right lower lobe bronchus. While this may be post inflammatory, neoplasm cannot completely be excluded. Therefore, follow-up is recommended. Consider pulmonary consult. 3. Emphysema with scattered blebs in both lungs There are no old studies available at this institution for comparison. If there are old films available from another institution, then they may be compared and an addendum issued when they're made available.
[2016-07-22 06:39] LABS: Folate (Folic Acid) 12.6 ng/mL (>3.0); Iron 28 ug/dL (38-169); Iron Saturation 9 % (15-55); UIBC 270 ug/dL (111-343)
--- NOTE | 2016-07-22 08:23 | RADIOLOGY REPORT PS360 ---
PROCEDURE: 2-D M-mode and color Doppler study INDICATIONS FOR THE TEST: Chest pain COPD Heart Murmur Tobacco Smoking Palpitations Fatigue Syncope Edema HypertensionXDiabetes Mellitus Rheumatic Fever SOB LIZ Obesity Hyperlipidemia Family History HD Additional History TIA ANEMIA PATIENT INFORMATION HEIGHT: 70 WEIGHT:135 GENDER: Male B/P:118/60 2-D/M-MODE INTERPRETATION: 2-D MEASUREMENTS OBSERVED VALUES IN CMS Right Ventricular Dimension (RVDd) 1.8 Interventricular Septum (Thickness)(IVsd) .9 Left Ventricular Internal Dimensions(LVIDd) 5.3 Left Ventricular Posterior Wall (Thickness)(LVPWd) .8 Aortic Root 3.0 Aortic Cusp Separation 1.6 Left Atrial Dimensions (LAD) 3.2 2D 1. Left atrium is mildly enlarged, left ventricle is normal size, there is no concentric left ventricular hypertrophy, visually estimated ejection fraction 50-55% with no obvious regional wall motion abnormality. 2. The right atrium is mildly enlarged, right ventricle is normal size and contractility. 3. The aortic valve is minimally thickened and calcified. 4. The mitral valve leaflets are minimally thickened. 5. The tricuspid valve is structurally normal. 6. The pulmonic valve is not well visualized. 7. No significant pericardial effusion noted. DOPPLER INTERROGATION: Doppler interrogation of the aortic mitral and tricuspid valvular presence of moderate mitral and mild tricuspid regurgitation, calculated right ventricular systolic pressure is 52 mmHg consistent with moderate pulmonary hypertension, grade 1 diastolic dysfunction seen without tissue Doppler evidence of raised left atrial pressure, inferior vena cava is normal size with normal inspiratory collapse. CONCLUSION: 1. Biatrial enlargement, normal left ventricular size, visually estimated ejection fraction 50-55% with no obvious regional wall motion abnormality, grade 1 diastolic dysfunction seen without tissue Doppler evidence of raised left atrial pressure. 2. Moderate mitral and mild tricuspid regurgitation, calculated right ventricular systolic pressure 52 mmHg consistent with moderate pulmonary hypertension, inferior vena cava is normal size with normal inspiratory collapse. 3. No significant pericardial effusion noted.
== END 2016-07-20 09:55 | disposition home or self-care (01) ==
LOC: ER 20:07 → 2ND 23:06 → ER 23:06 → 2ND 07-20 00:02
PROVIDERS: Emergency Medicine; Family Medicine
DX: D64.9 Anemia, unspecified (principal); I10 Essential (primary) hypertension; J44.9 Chronic obstructive pulmonary disease, unspecified; R42 Dizziness and giddiness; R07.9 Chest pain, unspecified
CPT/HCPCS: G0328; G0378; P9016; Q9967